=== PATIENT | male | born 1975 | race Caucasian/White ===

== ENCOUNTER 2020-09-19 17:20 | Emergency (ER) | payer BC, SELFPAY ==
[2020-09-19] VITALS (7 sets, daily range): BP systolic 90–138; BP diastolic 52–88; PULSE 87–94; RESP 17–18; TEMP 36.7–36.8; O2SAT 92–98; BMI 25.7
--- NOTE | 2020-09-19 17:32 | XR_ITS ---
PROCEDURE: XR CHEST PORTABLE CLINICAL HISTORY: r/o pna Chest pain the COMPARISON: CR CXR CHEST(2 VIEWS-NOT PORTABLE) from 06/05/2017 CR CXR2 CHEST-AP VIEW ONLY from 06/21/[address] [address] CHEST W/O CONTRAST from 06/21/2017 CR CXR1 CHEST-PORTABLE from 07/16/2017 FINDINGS: The cardiomediastinal silhouette and pulmonary vascularity are within normal limits. Patchy density is present in the right lower lobe consistent with infiltrate. The remaining lungs are clear. No acute bony abnormalities. IMPRESSION: Right lower lobe infiltrate Dictated by: Ishan Charlton MD 09/20/2020 05:02 Ishan Charlton MD in [place] 09/20/2020 05:02
[2020-09-19 17:50] LABS: Basophils # 0.1 K/mm3 (0-0.2); Basophils % 0.7 % (0.1-2.0); Eosinophils # 0.4 K/mm3 (0.0-0.4); Eosinophils % 2.5 % (0.1-12.0); Hematocrit 38.5 % (42.0-52.0); Hemoglobin 11.8 g/dL (14.1-18.0); Lymphocytes # 2.2 K/mm3 (0.7-4.5); Lymphocytes % 14.3 % (10-50); Mean Corpuscular HGB Conc 30.5 g/dL (31.8-35.4); Mean Corpuscular Hemoglobin 28.1 pg (27.0-31.2); Mean Corpuscular Volume 92.2 fl (80-94); Mean Platelet Volume 7.2 fl (7.4-10.4); Monocytes # 1.1 K/mm3 (0.1-1.0); Monocytes % 6.9 % (1.7-9.3); Neutrophils # 11.7 K/mm3 (1.8-7.8); Neutrophils % 75.6 % (37.0-80.0); Platelet Count 456 K/mm3 (142-424); Red Blood Count 4.18 M/mm3 (4.60-6.20); White Blood Count 15.4 K/mm3 (4.8-10.8)
[2020-09-19 17:53] LABS: MANUAL DIFFERENTIAL MANUAL DIFFERENTIAL (MANUAL DIFF)
[2020-09-19 17:56] LABS: Alanine Aminotransferase 20 U/L (12-78); Albumin Level 4.3 g/dl (3.5-5.0); Albumin/Globulin Ratio 1.2 (1.1-1.8); Alkaline Phosphatase 103 U/L (38-126); Aspartate Amino Transferase 22 U/L (17-59); Bilirubin,Total 0.3 mg/dl (0.2-1.3); Blood Urea Nitrogen 8 mg/dl (9-20); Calcium 9.8 mg/dl (8.4-10.2); Carbon Dioxide 30 mmol/L (22.0-30.0); Chloride 94 mmol/L (98-107); Creatinine Clearance Estimated 194 mL/min (50-200); Estimated Glomerular Filt Rate 147 ml/min (>60); GFR (African American) 178 ML/MIN (>60); Globulin 3.6 g/dL (1.3-3.2); Glucose 100 mg/dl (74-100); Sodium 137 mmol/L (136-145); Total Protein,Serum 7.9 g/dl (6.3-8.2)
[2020-09-19 18:02] LABS: Eosinophils % 4 % (0-3); Lymphocytes % 16 % (10-50); Monocytes % 9 % (2-9); Neutrophils % 71 % (42-76); Platelet Estimate Slight Increase; RBC Morphology Normal; Total Cells Counted 100
[2020-09-19 18:09] LABS: Troponin I < 0.01 ng/ml (0.00-0.034)
--- NOTE | 2020-09-19 19:02 | HMH.EDGENADL ---
ED Disposition Clinical Impression: Pneumonia Qualifiers: Pneumonia type: due to unspecified organism Laterality: right Lung location: lower lobe of lung Qualified Code(s): J18.9 - Pneumonia, unspecified organism Tibial plateau fracture, left Qualifiers: Encounter type: initial encounter Fracture type: closed Qualified Code(s): S82.142A - Displaced bicondylar fracture of left tibia, initial encounter for closed fracture Disposition: Home, Self-Care Condition on Discharge: Good Additional Instructions: Additional instructions for PNEUMONIA: Take antibiotics as prescribed. See your physician as soon as possible for further evaluation. Return immediately if you have an uncontrollable fever greater than 102 degrees, difficulty breathing or shortness of breath, persistent vomiting, or severe chest pain. Prescriptions: Clindamycin Palmitate HCl [Clindamycin Pediatric] 300 mg G-TUBE QID #800 ml Transmission Status: Received by [facility] levoFLOXacin [Levaquin 750mg tablet] 750 mg G-TUBE DAILY #6 tab Transmission Status: Received by [facility] Referrals: PCP,No [Primary Care Provider] - Juan Eric MD [Staff Physician] - (Call tomorrow to make appointment for Sunday or Sunday) - Critical Care Critical Care Time: No Attestation: On 09/19/20, the high probability of a clinically significant, sudden or life threatening deterioration of the following system(s) required my full and direct attention, intervention and personal management. The time I documented below is in addition to time spent performing reported procedures but includes the following listed in this critical care notation. Medical Decision Making - Medical Records Medical records reviewed: Yes: I reviewed the patient's medical records. MR Comment: portal reviewed. He did not have a left knee x-ray. - Manjit Inquiry Pt receiving controlled substance: No Vital Signs: 09/19/20 17:20 09/19/20 17:50 09/19/20 18:20 Temperature 98.3 F Temperature Source Oral Pulse Rate [Right Radial] 92 H 92 H 89 Respiratory Rate 17 Blood Pressure [Right Arm] 138/88 115/76 130/86 Blood Pressure Mean [Right Arm] 104 89 100 Blood Pressure Source [Right Arm] Automatic Cuff Automatic Cuff Blood Pressure Position [Right Arm] Sitting Sitting 02 Sat by Pulse Oximetry 94 L 94 L 92 L Oxygen Delivery Method Room Air Room Air 09/19/20 19:00 09/19/20 20:00 Temperature Temperature Source Pulse Rate [Right Radial] 87 93 H Respiratory Rate Blood Pressure [Right Arm] 128/84 90/52 L Blood Pressure Mean [Right Arm] 98 64 Blood Pressure Source [Right Arm] Automatic Cuff Automatic Cuff Blood Pressure Position [Right Arm] Sitting Sitting 02 Sat by Pulse Oximetry 95 97 Oxygen Delivery Method Room Air Room Air - Lab Data Lab Results 09/19/20 17:34: WBC 15.4 H, RBC 4.18 L, Hgb 11.8 L, Hct 38.5 L, MCV 92.2, MCH 28.1, MCHC 30.5 L, RDW 14.0, Plt Count 456 H, MPV 7.2 L, Neut % (Auto) 75.6, Lymph % (Auto) 14.3, Knox % (Auto) 6.9, Eos % (Auto) 2.5, Baso % (Auto) 0.7, Neut # (Auto) 11.7 H, Lymph # (Auto) 2.2, [place] # (Auto) 1.1 H, Eos # (Auto) 0.4, Baso # (Auto) 0.1, Total Counted 100, Neutrophils % (Manual) 71, Lymphocytes % (Manual) 16, Monocytes % (Manual) 9, Eosinophils % (Manual) 4 H, Platelet Estimate Slight increase, RBC Morphology Normal 09/19/20 17:34: Sodium 137, Potassium 4.0, Chloride 94 L, Carbon Dioxide 30, Anion Gap 17.0 H, BUN 8 L, Creatinine 0.60 L, Estimated Creat Clear 194, Estimated GFR 147, Est GFR ( Amer) 178, Glucose 100, Calcium 9.8, Total Bilirubin 0.3, AST 22, ALT 20, Alkaline Phosphatase 103, Troponin I < 0.01, Total Protein 7.9, Albumin 4.3, Globulin 3.6 H, Albumin/Globulin Ratio 1.2 Result diagrams: 09/19/20 17:34 09/19/20 17:34 Orders (Tests/Meds): ED MEDICATIONS Generic Name Dose Route Start Last Admin Trade Name Freq PRN Reason Stop Dose Admin Levofloxacin/Dextrose 750 mg in 150 mls @ 100 mls/hr
--- NOTE | 2020-09-19 19:37 | PC.NURSE ---
received report from nurse
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
--- NOTE | 2020-09-19 20:12 | PC.NURSE ---
Radiology at bedside
--- NOTE | 2020-09-19 20:15 | PC.NURSE ---
Radiology leaving bedside
--- NOTE | 2020-09-19 20:20 | PC.NURSE ---
MD Jenkins on phone with contract clerk ortho in reference to patients knee injury
== END 2020-09-19 21:01 | disposition home or self-care (01) ==
PROVIDERS: Emergency Provider Emergency Medicine
DX: J18.9 Pneumonia, unspecified organism (principal); S82.142A Displaced bicondylar fracture of left tibia, initial encounter for closed fracture; V20.4XXA Motorcycle driver injured in collision with pedestrian or animal in traffic accident, initial encounter; Y92.488 Other paved roadways as the place of occurrence of the external cause; F17.210 Nicotine dependence, cigarettes, uncomplicated
CPT/HCPCS: 29505; 71045; 73562; 80053; 84484; 85007; 85025; 93005; 96365; 96367; 99284; J1956

== ENCOUNTER → 2020-09-22 10:28 | Outpatient (CLI) | payer BC, SELFPAY ==
--- NOTE | 2020-09-22 10:28 | CT_ITS ---
PROCEDURE: CT KNEE LT WO CON CLINICAL HISTORY: left tibial plateau fracture Injury with pain, evaluate tibial plateau fracture COMPARISON: CR XR KNEE LT 3V from 09/19/2020 TECHNIQUE: Axial images obtained with sagittal and coronal reformats. All CT scans at the facility use one or more dose reduction, viz: automated exposure control, ma/kV adjustment per patient size (including targeted exams where dose is matched to indication, i.e. head), or iterative reconstruction technique. FINDINGS: There is a severely comminuted fracture involving the lateral tibial plateau. There is some sclerosis of the fracture fragments and some of the fracture fragments are well corticated indicating the Daisy is chronic or subacute. The lateral tibial plateau is slightly depressed by approximately 4 mm with the main lateral fracture fragment slightly laterally by 7 mm. There is some callus formation along the inferior aspect of the lateral fracture fragment. The fracture extends medially into the lateral tibial spine area. The there is a small knee joint effusion. IMPRESSION: Comminuted displaced and mildly depressed chronic lateral tibial plateau fracture with some callus formation inferiorly. Most of the bony fragments however are ununited. Dictated by: Ishan Charlton MD 09/22/2020 11:34 Ishan Charlton MD in [place] 09/22/2020 11:34
== END ==
PROVIDERS: PCP Nurse Practitioner Family; Visit Provider Orthopaedic Surgery
DX: S82.142A Displaced bicondylar fracture of left tibia, initial encounter for closed fracture (principal)
CPT/HCPCS: 73700

== ENCOUNTER 2020-09-23 17:24 | Emergency (ER) | payer BC, SELFPAY ==
[2020-09-23 17:25] VITALS: BP 136/87; PULSE 79; RESP 16; TEMP 36.9; O2SAT 98; BMI 24.2
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
--- NOTE | 2020-09-23 18:06 | PC.NURSE ---
dr barrera paged
--- NOTE | 2020-09-23 18:07 | PC.NURSE ---
Dr. Villanueva paged
--- NOTE | 2020-09-23 18:08 | PC.NURSE ---
Dr. Villanueva in surgery at this time and will call back as soon as hes finished.
--- NOTE | 2020-09-23 18:17 | PC.NURSE ---
Went to place BP cuff and pulse ox back on patient and patient states, They done taken them 50 fing times, they ain't getting no more.
--- NOTE | 2020-09-23 18:27 | PC.NURSE ---
Rad at bedside
--- NOTE | 2020-09-23 18:28 | PC.NURSE ---
Dr Villanueva at bedside
--- NOTE | 2020-09-23 18:37 | XR_ITS ---
PROCEDURE: XR ABDOMEN MIN 2V CLINICAL INDICATION: verify g tube placement COMPARISON: No exams were available for comparison FINDINGS: There are 2 images submitted with contrast injected through G-tube. The tip appears to be within the stomach on the 1st image. The 2nd image the tip is obscured by the overlying contrast bottle and someone's hand. The artifact could obscure extravasation. No extravasation is evident to the right of the spine. IMPRESSION: G-tube tip appears to be in the stomach. Dictated by: Ishan Charlton MD 09/24/2020 10:36 Ishan Charlton MD in [place] 09/24/2020 10:36
[2020-09-23 19:33] VITALS: BP 128/74; PULSE 72; RESP 16; TEMP 36.7; O2SAT 98
== END 2020-09-23 19:35 | disposition left against medical advice (07) ==
PROVIDERS: Emergency Provider Emergency Medicine; PCP Nurse Practitioner Family
DX: K94.23 Gastrostomy malfunction (principal)
CPT/HCPCS: 74019; 99282

== ENCOUNTER 2020-09-25 13:29 | Emergency (ER) | payer BC, SELFPAY ==
[2020-09-25 13:29] VITALS: BP 93/59; PULSE 84; RESP 20; TEMP 37.1; O2SAT 95; BMI 20.2
[2020-09-25 13:40] LABS: POC Glucose,Bedside 158 (70-110)
[2020-09-25 13:41] VITALS: BMI 20.3
--- NOTE | 2020-09-25 13:50 | PC.NURSE ---
Lab aware of blood draw. Was attempted by myself and unsuccessful for blood
--- NOTE | 2020-09-25 14:13 | HMH.EDGENADL ---
ED Disposition Clinical Impression: Substance abuse, Vasovagal syncope, Pneumonia Disposition: Home, Self-Care Condition on Discharge: Fair Instructions: DI for Syncope in Adults (Fainting) Additional Instructions: Return with any new or worsening symptoms. Cut back on smoking marijuana or other substances. Take medication as prescribed. Follow-up with PCP on Sunday Prescriptions: Amoxicillin [Amoxicillin 875MG Tab] 875 mg PO Q12H #20 tab Transmission Status: Pending to [facility] Azithromycin [Azithromycin 500mg Tab] 500 mg PO DAILY #3 tab Transmission Status: Pending to [facility] Referrals: Sumi Stone APRN [Primary Care Provider] - - Critical Care Critical Care Time: No Attestation: On 09/25/20, the high probability of a clinically significant, sudden or life threatening deterioration of the following system(s) required my full and direct attention, intervention and personal management. The time I documented below is in addition to time spent performing reported procedures but includes the following listed in this critical care notation. Medical Decision Making - Medical Records Medical records reviewed: Yes: I reviewed the patient's medical records. - Manjit Inquiry Pt receiving controlled substance: No Vital Signs: 09/25/20 13:29 09/25/20 14:22 09/25/20 15:47 Temperature 98.8 F Temperature Source Oral Pulse Rate [Left Radial] 84 80 75 Respiratory Rate 20 Blood Pressure [Right Arm] 93/59 L 104/66 L 107/63 L Blood Pressure Mean [Right Arm] 70 78 77 Blood Pressure Source [Right Arm] Automatic Cuff Automatic Cuff Automatic Cuff Blood Pressure Position [Right Arm] Sitting Sitting Sitting 02 Sat by Pulse Oximetry 95 95 92 L Oxygen Delivery Method Room Air Room Air Room Air 09/25/20 16:18 09/25/20 17:04 Temperature Temperature Source Pulse Rate [Left Radial] 72 74 Respiratory Rate Blood Pressure [Right Arm] 102/63 L 101/67 L Blood Pressure Mean [Right Arm] 76 78 Blood Pressure Source [Right Arm] Automatic Cuff Automatic Cuff Blood Pressure Position [Right Arm] Sitting Sitting 02 Sat by Pulse Oximetry 92 L 94 L Oxygen Delivery Method Room Air Room Air - Lab Data Lab Results 09/25/20 13:33: POC Glucose 158 H 09/25/20 14:14: WBC 18.2 H, RBC 3.77 L, Hgb 11.0 L, Hct 32.8 L, MCV 87.0, MCH 29.2, MCHC 33.6, RDW 14.6, Plt Count 568 H, MPV 7.8, Neut % (Auto) 76.2, Lymph % (Auto) 10.2, [place] % (Auto) 10.5 H, Eos % (Auto) 2.2, Baso % (Auto) 0.8, Neut # (Auto) 13.9 H, Lymph # (Auto) 1.9, [place] # (Auto) 1.9 H, Eos # (Auto) 0.4, Baso # (Auto) 0.1, Total Counted 100, Neutrophils % (Manual) 83 H, Lymphocytes % (Manual) 3 L, Monocytes % (Manual) 14 H, Platelet Estimate Marked increase, RBC Morphology Normal 09/25/20 14:14: Sodium 135 L, Potassium 4.7, Chloride 99, Carbon Dioxide 30, Anion Gap 10.7, BUN 13, Creatinine 0.70, Estimated Creat Clear 131, Estimated GFR 123, Est GFR ( Amer) 149, Glucose 135 H, Calcium 9.3, Total Bilirubin 0.2, AST 21, ALT 23, Alkaline Phosphatase 103, Total Protein 7.1, Albumin 3.8, Globulin 3.3 H, Albumin/Globulin Ratio 1.2 09/25/20 14:14: Plasma/Serum Alcohol < 10 09/25/20 15:06: VBG pH 7.37, VBG pCO2 45.8, VBG pO2 173.0 H, VBG HCO3 25.7, VBG Total CO2 27.1 H, VBG O2 Saturation 99.1 H, VBG Base Excess 0.4 09/25/20 15:23: Lactate 1.5 Result diagrams: 09/25/20 14:14 09/25/20 14:14 Orders (Tests/Meds): ED MEDICATIONS Discontinued Medications Generic Name Dose Route Start Last Admin Trade Name Freq PRN Reason Stop Dose Admin Sodium Chloride 1,000 mls @ 999 mls/hr 09/25/20 13:45 09/25/20 14:02 Sod Chlor 0.9% 1000ml Bag IV 09/25/20 14:45 999 mls/hr .Q1H1M TELMA Administration ORDERS Category Date Time Status UDS [Drug Screen,Urine] Stat Lab 09/25/20 15:06 Ordered Urinalysis and Microscopic Stat Lab 09/25/20 15:06 Ordered EKG Request [ECG Request by Dr/Nse] Stat Y 09/25/20 13:50 Ordered Medical Decision Narrative:
--- NOTE | 2020-09-25 14:14 | ECG_ITS ---
APPROVED REPORT Exam: Resting ECG HR:83 bpm ECG Measurements Heart Rate 83 AXES PA 146 P 39 QRSd 86 QRS 5 QT 366 T 37 QTc 430 Conclusion Normal sinus rhythm Minimal voltage criteria for LVH, may be normal variant Borderline ECG Electronically signed by : Didier Ball, 09/26/2020 18:32:20
[2020-09-25 14:22] VITALS: BP 104/66; PULSE 80; O2SAT 95
[2020-09-25 14:23] LABS: Basophils # 0.1 K/mm3 (0-0.2); Basophils % 0.8 % (0.1-2.0); Eosinophils # 0.4 K/mm3 (0.0-0.4); Eosinophils % 2.2 % (0.1-12.0); Hematocrit 32.8 % (42.0-52.0); Lymphocytes # 1.9 K/mm3 (0.7-4.5); Lymphocytes % 10.2 % (10-50); Mean Corpuscular HGB Conc 33.6 g/dL (31.8-35.4); Mean Corpuscular Hemoglobin 29.2 pg (27.0-31.2); Mean Platelet Volume 7.8 fl (7.4-10.4); Monocytes # 1.9 K/mm3 (0.1-1.0); Monocytes % 10.5 % (1.7-9.3); Neutrophils # 13.9 K/mm3 (1.8-7.8); Neutrophils % 76.2 % (37.0-80.0); Platelet Count 568 K/mm3 (142-424); Red Blood Count 3.77 M/mm3 (4.60-6.20); Red Cell Distribution Width 14.6 % (11.5-17.5); White Blood Count 18.2 K/mm3 (4.8-10.8)
[2020-09-25 14:29] LABS: Chloride 99 mmol/L (98-107); MANUAL DIFFERENTIAL MANUAL DIFFERENTIAL (MANUAL DIFF)
[2020-09-25 14:30] LABS: Potassium 4.7 mmoL/L (3.5-5.1); Sodium 135 mmol/L (136-145)
[2020-09-25 14:32] LABS: Alanine Aminotransferase 23 U/L (12-78); Aspartate Amino Transferase 21 U/L (17-59); Blood Urea Nitrogen 13 mg/dl (9-20); Creatinine Clearance Estimated 131 mL/min (50-200); Estimated Glomerular Filt Rate 123 ml/min (>60); GFR (African American) 149 ML/MIN (>60)
[2020-09-25 14:33] LABS: Albumin Level 3.8 g/dl (3.5-5.0); Albumin/Globulin Ratio 1.2 (1.1-1.8); Alkaline Phosphatase 103 U/L (38-126); Anion Gap 10.7 mEq/L (5-15); Bilirubin,Total 0.2 mg/dl (0.2-1.3); Calcium 9.3 mg/dl (8.4-10.2); Carbon Dioxide 30 mmol/L (22.0-30.0); Globulin 3.3 g/dL (1.3-3.2); Glucose 135 mg/dl (74-100); Total Protein,Serum 7.1 g/dl (6.3-8.2)
[2020-09-25 14:45] LABS: Lymphocytes % 3 % (10-50); Monocytes % 14 % (2-9); Neutrophils % 83 % (42-76); Platelet Estimate Marked Increase; RBC Morphology Normal; Total Cells Counted 100
--- NOTE | 2020-09-25 15:06 | XR_ITS ---
PROCEDURE: XR CHEST PORTABLE CLINICAL HISTORY: pain COMPARISON: CR CXR2 CHEST-AP VIEW ONLY from 06/21/[address] [facility] [address] CHEST W/O CONTRAST from 06/21/2017 CR CXR1 CHEST-PORTABLE from 07/16/2017 CR XR CHEST PORTABLE from 09/19/2020 FINDINGS: The cardiomediastinal silhouette and pulmonary vascularity are within normal limits considering a somewhat poor inspiration when compared to the previous study. The patchy ill-defined pneumonic infiltrate is again seen right infrahilar region and right lower lobe. There has been no significant interval clearing from the previous study. The right upper lung field and left lung field remains clear. There is no pleural fluid. IMPRESSION: Persistent ill-defined pneumonic infiltrate right lower lobe Dictated by: Dr. Porfirio Bain MD 09/25/2020 15:30 Dr. Porfirio Bain MD in [place] 09/25/2020 15:30
[2020-09-25 15:21] LABS: Ethyl Alcohol < 10 mg/dl (0-10)
[2020-09-25 15:36] LABS: Lactic Acid 1.5 mmol/L (0.7-2.1)
[2020-09-25 15:47] VITALS: BP 107/63; PULSE 75; O2SAT 92
[2020-09-25 16:01] LABS: VBG Base Excess 0.4 mmol/L (-2.4-2.3); VBG HCO3 25.7 mmol/L (23-30); VBG Oxygen Saturation 99.1 % (50-70); VBG PCO2 45.8 mmol/L (35-51); VBG PH 7.37 mmol/L (7.31-7.41); VBG Total CO2 27.1 mmol/L (23-27)
--- NOTE | 2020-09-25 16:16 | PC.NURSE ---
Pt's mother called and is upset that she is unable to get the answers she looking for as far as pt's test results. Explained to her that I cannot give out information over the phone but I would be glad to let her speak with the pt. She declined at this time and promptly got off the phone.
[2020-09-25 16:18] VITALS: BP 102/63; PULSE 72; O2SAT 92
[2020-09-25 17:04] VITALS: BP 101/67; PULSE 74; O2SAT 94
[2020-09-25 18:41] VITALS: BP 115/86; PULSE 78; RESP 20; TEMP 37.1; O2SAT 95
== END 2020-09-25 18:43 | disposition home or self-care (01) ==
PROVIDERS: Emergency Provider Emergency Medicine; PCP Nurse Practitioner Family
DX: R55 Syncope and collapse (principal); F19.10 Other psychoactive substance abuse, uncomplicated; J18.9 Pneumonia, unspecified organism; F17.210 Nicotine dependence, cigarettes, uncomplicated
CPT/HCPCS: 36415; 71045; 80053; 82803; 82962; 83605; 85007; 85025; 93005; 96365; 99283

== ENCOUNTER → 2020-10-05 12:50 | Outpatient (CLI) | payer BC, SELFPAY ==
--- NOTE | 2020-10-05 12:55 | FL_ITS ---
PROCEDURE: FL BARIUM SWALLOW MODIFIED CLINICAL INDICATION: DUSPHAGIA Dysphagia COMPARISON: No exams were available for comparison TECHNIQUE: Patient administered varying consistencies of barium contrast, while viewed in lateral position under real-time fluoroscopy with cine recording. FLUOROSCOPY TIME:2 minutes and 32 seconds The study was performed in conjunction with speech pathologist. Please see that report & recommendations. FINDINGS: Patient was given varying consistencies of barium. There was silent aspiration with thin liquids and premature spillage into the vallecula and piriform sinuses. There is stasis within the piriform sinuses and vallecula. IMPRESSION: Abnormal modified barium swallow with solid aspiration with thin liquids and premature spillage into the valleculae and piriform sinuses with poor clearance and moderate degree of stasis. Please see speech pathologist report and recommendations. Dictated by: Ishan Charlton MD 10/19/2020 10:10 Ishan Charlton MD in [place] 10/19/2020 10:10
--- NOTE | 2020-10-05 14:27 | HMH.SLMBS2 ---
Speech & Language Evaluation Speech/Language Mod Barium Swallow Start: 10/05/20 14:08 Freq: once Status: Complete Protocol: Document 10/05/20 14:08 PARI (Rec: 10/05/20 14:27 PARI [id number]) General Information General Current Food Consistancy NPO Dentition Poor Dentition Oxygen Status Room Air Patient Orientation Person,Place Ability to Follow Directions Good Communication Ability Moderate Impairment Voice Voice Quality Breathy Voice Pitch Limited Variation Voice Loudness Moderately Soft/Quiet MBS Recommendations Diet Dietary Recommendations NPO Treatment/Strategies Treatment Recommendation Resistive Sucking Exer.,Base of Tongue Exercises,Thermal Stimulation Referrals/Other Recommended Referrals GI Consult,Alternate Feeding Method Other Recommendations Continue with Alternate feeding method Mod Barium Swallow Impressions Summary and Impressions Oral Phase Impression No Impairment (WFL) Oral Phase Summary Poor dentition could result in difficulty with food consistencies not explored in the assessment ie. mechanical soft, regular, and mixed. Pharyngeal Phase Impression Severe Impairment Pharyngeal Phase Summary Mr. Piper did exhibit the following signs of dysphagia during assessment: premature spillage over the back of the tongue to the valleculae, penetration with all consistencies, silent aspiration of thin liquids from residue after the swallow , residue in pyriform sinuses with all consistencies after the swallow. Mr. Piper exhibited a line of mucus that was highlighted on study attatched to valleculae to the posterior pharyngeal wall above the esophageal opening. He did exhibit reguargitation in esophagus with all consistencies. The honey thick liquid washes created more residue in pyriform sinuses. Thin liquid washes did not
== END ==
PROVIDERS: PCP Nurse Practitioner Family; Visit Provider Student in an Organized Health Care Education/Training Program
DX: S06.9X0A Unspecified intracranial injury without loss of consciousness, initial encounter (principal); R13.12 Dysphagia, oropharyngeal phase
CPT/HCPCS: 70371; 92611

== ENCOUNTER 2020-10-11 11:10 | Emergency (ER) | payer BC, SELFPAY ==
[2020-10-11 11:14] VITALS: BP 101/63; PULSE 86; RESP 16; TEMP 36.7; O2SAT 98; BMI 25.0
--- NOTE | 2020-10-11 11:24 | XR_ITS ---
PROCEDURE: XR CHEST 2V CLINICAL HISTORY: pneumonia COMPARISON: CT [facility] CT CHEST W/O CONTRAST from 06/21/2017 CR CXR1 CHEST-PORTABLE from 07/16/2017 CR XR CHEST PORTABLE from 09/19/2020 CR XR CHEST PORTABLE from 09/25/2020 FINDINGS: The cardiomediastinal silhouette and pulmonary vascularity are within normal limits. There has been slight interval clearing of the ill-defined pneumonic infiltrate right infrahilar region and right lower lobe. The right upper lung field and left lung delaney are clear. There is no pleural fluid. There is a healing fracture right 8th rib axillary line with moderate callus formation at the fracture site. IMPRESSION: Minimal right lower lobe infiltrate remaining, healing somewhat recent fracture right 8th rib. Dictated by: Dr. Porfirio Bain MD 10/11/2020 12:13 Dr. Porfirio Bain MD in [place] 10/11/2020 12:13
[2020-10-11 11:29] VITALS: BP 101/63; PULSE 86; RESP 16; TEMP 37.1; O2SAT 98
--- NOTE | 2020-10-11 11:48 | HMH.EDUTC ---
[facility] [place]ression: Right lower lobe pneumonia Qualifiers: Pneumonia type: due to unspecified organism Qualified Code(s): J18.9 - Pneumonia, unspecified organism Disposition: Home, Self-Care Condition on Discharge: Good Instructions: Pneumonia-Adult Additional Instructions: Drink plenty of fluids. Use the incentive spirometer as directed. (X10 every 2 hours while awake). Take tylenol for pain or fever. Return if you begin to have difficulty breathing. Follow up with your regular doctor. GO TO THE ER FOR ANY WORSENING SYMPTOMS Follow up with your primary care physician in a week to 10 days to have the chest x-ray repeated to make sure the pneumonia has continued to clear up. Prescriptions: Amoxicillin/Potassium Clav [Augmentin 875-125 Tablet] 1 tab PO Q12H 10 Days #20 tab Transmission Status: Received by [facility] predniSONE [Prednisone 20mg Tab] 20 mg PO BID 4 Days #8 tab Transmission Status: Received by [facility] Referrals: Sumi Stone APRN [Primary Care Provider] - Time of Disposition: 12:23 Medical Decision Making - Medical Records Medical records reviewed: No: I reviewed the patient's medical records. - Manjit Inquiry Pt receiving controlled substance: No Vital Signs: 10/11/20 11:14 10/11/20 11:29 Temperature 98.0 F 98.7 F Temperature Source Oral Oral Pulse Rate 86 Pulse Rate [Left] 86 Respiratory Rate 16 16 Blood Pressure 101/63 L Blood Pressure [Right Arm] 101/63 L Blood Pressure Mean [Right Arm] 75 Blood Pressure Source [Right Arm] Automatic Cuff Blood Pressure Position [Right Arm] Sitting 02 Sat by Pulse Oximetry 98 Oxygen Delivery Method Room Air - Radiology Data #1 Image(s): Chest Image Reviewed: Yes I reviewed the patient's radiology image, Yes I have reviewed radiologist's interpretation Preliminary Findings: Abnormal PROCEDURE: XR CHEST 2V CLINICAL HISTORY: pneumonia COMPARISON: CT [facility] CT CHEST W/O CONTRAST from 06/21/2017 CR CXR1 CHEST-PORTABLE from 07/16/2017 CR XR CHEST PORTABLE from 09/19/2020 CR XR CHEST PORTABLE from 09/25/2020 FINDINGS: The cardiomediastinal silhouette and pulmonary vascularity are within normal limits. There has been slight interval clearing of the ill-defined pneumonic infiltrate right infrahilar region and right lower lobe. The right upper lung field and left lung delaney are clear. There is no pleural fluid. There is a healing fracture right 8th rib axillary line with moderate callus formation at the fracture site. IMPRESSION: Minimal right lower lobe infiltrate remaining, healing somewhat recent fracture right 8th rib. Dictated by: Dr. Porfirio Bain MD 10/11/2020 12:13 Dr. Porfirio Bain MD in [place] 10/11/2020 12:13 [facility] [place] - General Stated complaint: soa Time Seen by Provider: 10/11/20 11:48 Mode of Arrival: Ambulatory Source of Information: Patient Limitations: No Limitations Description of Symptoms (Recalled from Triage Doc. by RN): SOB-Pt states he had pneumonia and finished his medication and feels like he still has it. Pt called PCP and they told him to come in and get an xray. HEENT Symptoms (Recalled from RN notes): No Resp Symptoms (Recalled from RN notes): Yes Skin Symptoms (Recalled from RN notes): No MS Symptoms (Recalled from RN notes): No Functional Status (Recalled from RN notes): wnl - History of Present Illness Provider Complaint: He states that he has had pneumonia. He has finished the antibiotics. He states that he has still been feeling bad and feeling like has had pneumonia. - Related Data Previous Rx's Medication Instructions Recorded Clindamycin Palmitate HCl 300 mg G-TUBE QID #800 ml 09/19/20 [Clindamycin Pediatric] levoFLOXacin [Levaquin 750mg 750 mg G-TUBE DAILY #6 tab 09/19/20 tablet] Amoxicillin [Amoxicillin 875MG 875 mg PO Q12H #20 tab 09/25/20 Tab] Azithromycin [Azithromycin 50
== END 2020-10-11 12:28 | disposition home or self-care (01) ==
PROVIDERS: Emergency Provider Nurse Practitioner Family; PCP Nurse Practitioner Family
DX: J18.9 Pneumonia, unspecified organism (principal); F17.210 Nicotine dependence, cigarettes, uncomplicated
CPT/HCPCS: 71046; 99201

== ENCOUNTER 2020-10-18 18:14 | Emergency (ER) | payer BC, SELFPAY ==
[2020-10-18 18:16] VITALS: BP 125/71; PULSE 74; RESP 16; TEMP 36.9; O2SAT 99; BMI 23.6
[2020-10-18 18:27] VITALS: BMI 22.1
--- NOTE | 2020-10-18 18:27 | CT_ITS ---
PROCEDURE: CT HEAD/BRAIN WO CON CLINICAL INDICATION: severe headache Severe headache, prior surgery COMPARISON: CT HDWO CT HEAD W/O CONTRAST from 06/21/2017 TECHNIQUE: Axial images obtained. All CT scans at the facility use one or more dose reduction, viz: automated exposure control, ma/kV adjustment per patient size (including targeted exams where dose is matched to indication, i.e. head), or iterative reconstruction technique. FINDINGS: Status post right-sided temporal parietal craniotomy. 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 No midline shift or mass effect is evident. There are some vague low-density changes in the right temporal lobe posteriorly at the region of the craniotomy. Correlation with recent exam is needed. The temporal horn of the left lateral ventricle is slightly prominent. There has been a prior right mastoidectomy with fat replacement in the right mastoid region. Comminuted fracture involves the roof of the mastoid sinus extending into the right petrous bone laterally. No acute intracranial hemorrhage or midline shift is evident. The there is opacification of the remaining right mastoid air cells. There is mild mucosal thickening of the left mastoid air cells IMPRESSION: 1. Status post right temporoparietal craniectomy and right mastoid surgery with comminuted fracture involving the roof of the mastoid sinus extending into the right petrous bone. Please correlate with more recent exams which are not available at this institution. 2. Low-density changes in the right temporal lobe which could be due to developing encephalomalacia change. 3. No midline shift or acute intracranial hemorrhage apparent Dictated by: Ishan Charlton MD 10/19/2020 07:32 Ishan Charlton MD in [place] 10/19/2020 07:32
--- NOTE | 2020-10-18 18:42 | PC.NURSE ---
pt gone for ct
[2020-10-18 18:45] LABS: Basophils # 0.1 K/mm3 (0-0.2); Basophils % 0.5 % (0.1-2.0); Eosinophils # 0.4 K/mm3 (0.0-0.4); Eosinophils % 2.2 % (0.1-12.0); Hematocrit 37.5 % (42.0-52.0); Hemoglobin 12.2 g/dL (14.1-18.0); Lymphocytes # 2.9 K/mm3 (0.7-4.5); Lymphocytes % 14.8 % (10-50); MANUAL DIFFERENTIAL MANUAL DIFFERENTIAL (MANUAL DIFF); Mean Corpuscular HGB Conc 32.5 g/dL (31.8-35.4); Mean Corpuscular Hemoglobin 29.1 pg (27.0-31.2); Mean Corpuscular Volume 89.4 fl (80-94); Mean Platelet Volume 7.1 fl (7.4-10.4); Monocytes # 1.7 K/mm3 (0.1-1.0); Monocytes % 8.9 % (1.7-9.3); Neutrophils # 14.4 K/mm3 (1.8-7.8); Neutrophils % 73.6 % (37.0-80.0); Platelet Count 464 K/mm3 (142-424); Red Cell Distribution Width 16.1 % (11.5-17.5); White Blood Count 19.5 K/mm3 (4.8-10.8)
[2020-10-18 18:46] VITALS: BP 100/56; PULSE 68; RESP 20; O2SAT 98
--- NOTE | 2020-10-18 18:46 | PC.NURSE ---
Back from CT
[2020-10-18 18:50] LABS: Chloride 100 mmol/L (98-107)
[2020-10-18 18:51] LABS: Potassium 4.5 mmoL/L (3.5-5.1); Sodium 135 mmol/L (136-145)
[2020-10-18 18:53] LABS: Alanine Aminotransferase 13 U/L (12-78); Albumin Level 4.2 g/dl (3.5-5.0); Alkaline Phosphatase 85 U/L (38-126); Aspartate Amino Transferase 20 U/L (17-59); Bilirubin,Total 0.2 mg/dl (0.2-1.3); Blood Urea Nitrogen 14 mg/dl (9-20); Creatinine Clearance Estimated 131 mL/min (50-200); Estimated Glomerular Filt Rate 123 ml/min (>60); GFR (African American) 149 ML/MIN (>60); Total Protein,Serum 7.5 g/dl (6.3-8.2)
[2020-10-18 18:54] LABS: Albumin/Globulin Ratio 1.3 (1.1-1.8); Anion Gap 10.5 mEq/L (5-15); Calcium 9.7 mg/dl (8.4-10.2); Carbon Dioxide 29 mmol/L (22.0-30.0); Globulin 3.3 g/dL (1.3-3.2); Glucose 96 mg/dl (74-100)
[2020-10-18 18:55] LABS: Eosinophils % 6 % (0-3); Lymphocytes % 16 % (10-50); Monocytes % 9 % (2-9); Neutrophils % 67 % (42-76); Platelet Estimate Slight Increase; RBC Morphology Normal; Total Cells Counted 100
--- NOTE | 2020-10-18 19:00 | HMH.EDHA ---
ED Disposition Clinical Impression: Headache Qualifiers: Headache type: unspecified Headache chronicity pattern: acute headache Intractability: not intractable Qualified Code(s): R51.9 - Headache, unspecified Sinusitis Qualifiers: Sinusitis location: sphenoidal Chronicity: acute Recurrence: not specified as recurrent Qualified Code(s): J01.30 - Acute sphenoidal sinusitis, unspecified Disposition: Home, Self-Care Condition on Discharge: Good Instructions: DI for Headache Additional Instructions: keep appt in am Prescriptions: cephALEXin [Keflex 500mg Cap] 500 mg PO TID #30 cap Transmission Status: Pending to [facility] Referrals: Wagner Cowan MD [Primary Care Provider] - - Critical Care Critical Care Time: No Attestation: On 10/18/20, the high probability of a clinically significant, sudden or life threatening deterioration of the following system(s) required my full and direct attention, intervention and personal management. The time I documented below is in addition to time spent performing reported procedures but includes the following listed in this critical care notation. Medical Decision Making - Medical Records Medical records reviewed: Yes: I reviewed the patient's medical records. - Manjit Inquiry Pt receiving controlled substance: No Vital Signs: 10/18/20 18:16 10/18/20 18:46 Temperature 98.4 F Temperature Source Oral Pulse Rate [Right] 74 68 Respiratory Rate 16 20 Blood Pressure [Right Arm] 125/71 100/56 L Blood Pressure Mean [Right Arm] 89 70 Blood Pressure Source [Right Arm] Automatic Cuff Automatic Cuff Blood Pressure Position [Right Arm] Sitting Supine 02 Sat by Pulse Oximetry 99 98 Oxygen Delivery Method Room Air Room Air - Lab Data Lab results reviewed: Yes: I reviewed the patient's lab results. Lab Results 10/18/20 18:30: WBC 19.5 H, RBC 4.20 L, Hgb 12.2 L, Hct 37.5 L, MCV 89.4, MCH 29.1, MCHC 32.5, RDW 16.1, Plt Count 464 H, MPV 7.1 L, Neut % (Auto) 73.6, Lymph % (Auto) 14.8, Meagher % (Auto) 8.9, Eos % (Auto) 2.2, Baso % (Auto) 0.5, Neut # (Auto) 14.4 H, Lymph # (Auto) 2.9, Meagher # (Auto) 1.7 H, Eos # (Auto) 0.4, Baso # (Auto) 0.1, Total Counted 100, Neutrophils % (Manual) 67, Band Neutrophils % 2.0, Lymphocytes % (Manual) 16, Monocytes % (Manual) 9, Eosinophils % (Manual) 6 H, Platelet Estimate Slight increase, RBC Morphology Normal 10/18/20 18:30: Sodium 135 L, Potassium 4.5, Chloride 100, Carbon Dioxide 29, Anion Gap 10.5, BUN 14, Creatinine 0.70, Estimated Creat Clear 131, Estimated GFR 123, Est GFR ( Amer) 149, Glucose 96, Calcium 9.7, Total Bilirubin 0.2, AST 20, ALT 13, Alkaline Phosphatase 85, Total Protein 7.5, Albumin 4.2, Globulin 3.3 H, Albumin/Globulin Ratio 1.3 Result diagrams: 10/18/20 18:30 10/18/20 18:30 Orders (Tests/Meds): ED MEDICATIONS Generic Name Dose Route Start Last Admin Trade Name Freq PRN Reason Stop Dose Admin Sodium Chloride 1,000 mls @ 999 mls/hr 10/18/20 18:30 10/18/20 18:33 Sod Chlor 0.9% 1000ml Bag IV 10/18/20 19:30 999 mls/hr .Q1H1M TELMA Administration Discontinued Medications Generic Name Dose Route Start Last Admin Trade Name Freq PRN Reason Stop Dose Admin Acetaminophen/Codeine Phosphate 1 antoinette 10/18/20 19:13 10/18/20 19:13 Acetaminophen 300mg W/Codeine 30mg Take Home Pack (6) PO 10/18/20 19:14 1 antoinette ONCE ONE Administration Ceftriaxone Sodium 1 gm/ 50 mls @ 100 mls/hr 10/18/20 19:07 10/18/20 19:14 Sodium Chloride IV 10/18/20 19:36 100 mls/hr ONCE ONE Administration Protocol Ketorolac Tromethamine 30 mg 10/18/20 18:28 10/18/20 18:33 Ketorolac 30mg/Ml Vial IV 10/18/20 18:29 30 mg ONCE ONE Administration Methylprednisolone Sodium Succinate 125 mg 10/18/20 19:07 10/18/20 19:12 Methylprednisolone Sod Succ 125mg Vial IV 10/18/20 19:08 125 mg ONCE ONE Administration Morphine Sulfate 4 mg 10/18/20 19:07 10/18/20 19:13 Morphine 4mg/Ml Syringe IV
--- NOTE | 2020-10-18 19:10 | XR_ITS ---
PROCEDURE: XR CHEST 2V CLINICAL HISTORY: headache COMPARISON: CT [facility]WO CT CHEST W/O CONTRAST from 06/21/2017 CR XR CHEST PORTABLE from 09/19/2020 CR XR CHEST PORTABLE from 09/25/2020 CR XR CHEST 2V from 10/11/2020 FINDINGS: The cardiomediastinal silhouette and pulmonary vascularity are within normal limits. Change atelectatic or fibrotic changes noted in the lower lobes. Upper lobes are clear. There are healing fractures of the right 8th and 9th ribs. No acute bony abnormalities. IMPRESSION: No change in the bibasilar atelectasis or fibrotic change with healing right 8th and 9th rib fractures Dictated by: Ishan Charlton MD 10/19/2020 05:26 Ishan Charlton MD in [place] 10/19/2020 05:26
--- NOTE | 2020-10-18 19:32 | PC.NURSE ---
to xray via [place]
[2020-10-18 19:54] VITALS: BP 152/74; PULSE 73; RESP 16; TEMP 36.6; O2SAT 98
== END 2020-10-18 19:57 | disposition home or self-care (01) ==
PROVIDERS: Emergency Provider Emergency Medicine; PCP Family Medicine
DX: G44.89 Other headache syndrome (principal); J01.30 Acute sphenoidal sinusitis, unspecified; F17.210 Nicotine dependence, cigarettes, uncomplicated
CPT/HCPCS: 70450; 71046; 80053; 85007; 85025; 96365; 96375; 99283; J2405

== ENCOUNTER → 2021-01-25 16:49 | Outpatient (CLI) | payer BC, SELFPAY ==
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
== END ==
PROVIDERS: PCP Family Medicine; Visit Provider Family Medicine
DX: S49.91XA Unspecified injury of right shoulder and upper arm, initial encounter (principal)
CPT/HCPCS: 73030

== ENCOUNTER → 2021-02-04 16:57 | Outpatient (CLI) | payer BC, SELFPAY ==
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
== END ==
PROVIDERS: PCP Family Medicine; Visit Provider Family Medicine
DX: S49.91XA Unspecified injury of right shoulder and upper arm, initial encounter (principal); M21.921 Unspecified acquired deformity of right upper arm
CPT/HCPCS: 73221

== ENCOUNTER 2021-03-02 14:00 | Outpatient (RCR) | payer BC, SELFPAY ==
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
--- NOTE | 2021-02-02 14:38 | HMH.RHREAS ---
Rehab Reassessment Rehab OP Re-assessment Start: 02/02/21 14:00 Freq: Status: Active Protocol: Document 02/02/21 14:00 JENNY (Rec: 02/02/21 14:38 JENNY [id number]) Electronically Signed By Matt Price OT 02/02/21 14:00 Rehab Re-assessment Subjective Subjective I don't know what my x-ray said. Objective Objective Notes Pt continues to be seen weekly in order to address right shoulder deficits. Pt engages in AROM/AAROM/Strengthening exercises in order to improve overall functional use of R shoulder. Pt usually refused ice an e-stim. Assessment Progress Assessment Slower Than Expected Assessment Notes Pt demonstrates minimal improvement at right shoulder sincer beginning therapy. Pt reports his pain is now a 3/10 at worst and he feels he is 50% better. However, pt's AROM and strength remain signficiantly limited. Pt did have an x-ray that appears to be normal with no acute findings. Pt reports he wants to have an MRI in order to observe msucles and tendons of shoulder. Current AROM r shoulder and mmt Flex: 125 degrees; 3 Abd: 105 degrees; 3 ER: 65 degrees; 3 IR: 85 degrees; [address], 4, & 5 Goals Not Met See below Revised Goals STG 1 & 2 LT-5 Plan Plan Continue with OT plan of care at this time. Frequency of Therapy 1-2x's a week Duration of therapy 4 more weeks Time and Billing Re-Eval Time 10 Re-Eval Billing Units 1 PHYSICIAN CERTIFICATION: I certify the specified therapy services for Adrian Piper are required, authorized, and reviewed every 30 days.
--- NOTE | 2021-03-02 14:39 | HMH.RHREAS ---
Rehab Reassessment Rehab OP Re-assessment Start: 02/02/21 14:00 Freq: Status: Active Protocol: Document 03/02/21 14:07 [email or web address] (Rec: 03/02/21 14:39 [email or web address] [id number]) Electronically Signed By Matt Price OT 03/02/21 14:07 Rehab Re-assessment Subjective Subjective It's been hurting me really bad the past 3 days. Objective Objective Notes Pt continues to be seen weekly in order to address right shoulder deficits. Pt engages in AROM/AAROM/Strengthening exercises in order to improve overall functional use of R shoulder. Pt usually refused ice an e-stim. Assessment Progress Assessment Slower Than Expected Assessment Notes Pt continues to complain of pain despite 8 weeks of therapy. Pt did have a MRI completed that diagnosed him with a partial tear of supraspinatus and infraspinatus, and a SLAP tear . Pt is reluctant of having surgery. Therapist explained he is not showing improvement and may need to return to the doctor. Pt does not demonstrate improvement since last re-assessment. Pt complains of pain at 5/10 at worst (increased since last re -assessment). Current AROM r shoulder and mmt Flex: 125 degrees; 3 Abd: 105 degrees; 3 ER: 65 degrees; 3 IR: 85 degrees; [address], 4, & 5 Goals Not Met See below Revised Goals STG 1 & 2 LT-5 Plan Plan At this time, therapist has recommended patient be put on hold in order to go see an Ortho. Pt may need surgical intervention because he has not shown improvement after 8 weeks of therapy. Plus, pt is only alloted 20 visits a year per insurance and
== END 2021-03-02 14:05 | disposition home or self-care (01) ==
LOC: OT 14:00
PROVIDERS: PCP Family Medicine; Visit Provider Family Medicine
DX: M25.512 Pain in left shoulder (principal); Z74.09 Other reduced mobility
CPT/HCPCS: 97110; 97164; 97166

== ENCOUNTER 2021-03-02 15:00 | Outpatient (RCR) | payer BC, SELFPAY ==
--- NOTE | 2021-01-20 18:55 | HMH.SLAPHASI ---
Speech & Language Evaluation Speech/Language Aphasia Evaluation Start: 01/20/21 18:12 Freq: once Status: Complete Protocol: Document 01/20/21 18:12 CMAKeara (Rec: 01/20/21 18:51 CMAY [id number]) Aphasia Assessment/Goals/Plan Assessment Date of Evaluation: 01/20/21 Evaluation Type Initial Certification Assessment/Problems Traumatic Brain Injury Does Patient Qualify for Service Yes Qualify/Failure Comment Based on the results of today' s evaluation, Mr. Piper qualifies for speech therapy services to address his memory , word finding, and swallowing deficits secondary to his TBI . ST assessed language/memory/ cognitive skills today during evaluation and will assess swallowing when MBSS report is received from [facility] with recent recommendations. Plan Pt will be seen # times/week 2 for # weeks 12 Anticipate reaching STG in # weeks 8 Anticipate reaching LTG in # weeks 12 Pt/Guardian verbally ack understanding Yes of dx/prognosis/goals Pt/Guardian verbally ack understanding Yes of/consent to tx prog G -code Required No STG-Auditory Comprehension Sentence Level 80 Paragraph Level 80 3rd Element 80 STG-Reading Comprehension Reading Sentences & Ans Questions 80 Reading Paragraphs & Ans Questions 80 STG-Verbal Expressive Language Word Naming 80 Define Words 80 STG-Attending/Orientation/Memory Orientation 80 Delayed Recall 80 Memory Recall 80 STG-Comparative/Linguistic Skills Thought Organization 80 Categorization Ability 80 Define Similarities/Differences 80 STG-Divergent Thinking Deductive Reasoning 80 Open-Ended Problem Solving 80 Long-Term Goals Increase cognitive skills to communicate Yes w/family & friends Education Instructions provided Therapy plan and treatment targets were discussed with Mr Dolly Piper who expressed understanding. Pt/Caregiver Able to Recall Information Able to recall/restate Speech & Language HPI History Present Illness Description of Patient Problem Traumatic Brain Injury Pt/Caregiver Concerns Per intake paperwork: Vocal cords aren't closing all the way (sometimes chokes),
== END 2021-03-02 15:05 | disposition home or self-care (01) ==
LOC: ST 15:00
PROVIDERS: PCP Family Medicine; Visit Provider Family Medicine
DX: Z87.820 Personal history of traumatic brain injury (principal)
CPT/HCPCS: 92523; 97129; 97130

== ENCOUNTER 2021-03-15 12:18 | Observation (INO) | payer BC, SELFPAY ==
[2021-03-15] VITALS (11 sets, daily range): BP systolic 135–173; BP diastolic 82–102; PULSE 56–65; RESP 18–20; TEMP 36.5–36.9; O2SAT 94–98; BMI 32.3; BMI 30.4
--- NOTE | 2021-03-15 12:35 | XR_ITS ---
PROCEDURE: XR CHEST 2V CLINICAL HISTORY: sob COMPARISON: CT CHWO CT CHEST W/O CONTRAST from 06/21/2017 CR XR CHEST PORTABLE from 09/25/2020 CR XR CHEST 2V from 10/11/2020 CR XR CHEST 2V from 10/18/2020 FINDINGS: The cardiomediastinal silhouette and pulmonary vascularity are within normal limits. The lungs are clear without infiltrates, suspicious nodules, or pleural effusions. Minimal fibrotic changes are present in the right lung base. No acute bony findings. IMPRESSION: Minimal right basilar fibrotic change otherwise negative Dictated by: Ishan Charlton MD 03/15/2021 14:18 Ishan Charlton MD in [place] 03/15/2021 14:18
--- NOTE | 2021-03-15 12:43 | ECG_ITS ---
APPROVED REPORT Exam: Resting ECG HR:62 bpm ECG Measurements Heart Rate 62 AXES NJ 154 P 36 QRSd 84 QRS -4 QT 420 T 23 QTc 426 Conclusion Normal sinus rhythm Possible Left atrial enlargement Left ventricular hypertrophy Abnormal ECG Electronically signed by : Didier Ball, 03/15/2021 19:47:52
[2021-03-15 12:48] LABS: Basophils # 0.2 K/mm3 (0-0.2); Eosinophils # 0.3 K/mm3 (0.0-0.4); Eosinophils % 2.4 % (0.1-12.0); Hematocrit 41.4 % (42.0-52.0); Hemoglobin 14.3 g/dL (14.1-18.0); Lymphocytes # 3.8 K/mm3 (0.7-4.5); Lymphocytes % 27.2 % (10-50); Mean Corpuscular HGB Conc 34.4 g/dL (31.8-35.4); Mean Corpuscular Hemoglobin 30.7 pg (27.0-31.2); Mean Corpuscular Volume 89.3 fl (80-94); Mean Platelet Volume 7.5 fl (7.4-10.4); Monocytes # 1.2 K/mm3 (0.1-1.0); Monocytes % 8.7 % (1.7-9.3); Neutrophils # 8.6 K/mm3 (1.8-7.8); Neutrophils % 60.8 % (37.0-80.0); Platelet Count 357 K/mm3 (142-424); Red Blood Count 4.64 M/mm3 (4.60-6.20); Red Cell Distribution Width 13.8 % (11.5-17.5); White Blood Count 14.2 K/mm3 (4.8-10.8)
[2021-03-15 12:54] LABS: Blood Urea Nitrogen 17 mg/dl (9-20); Carbon Dioxide 27 mmol/L (22.0-30.0); Chloride 108 mmol/L (98-107); Creatinine Clearance Estimated 144 mL/min (50-200); Estimated Glomerular Filt Rate 81 ml/min (>60); GFR (African American) 98 ML/MIN (>60); Glucose 99 mg/dl (74-100); Sodium 139 mmol/L (136-145)
--- NOTE | 2021-03-15 12:55 | HMH.EDGENADL ---
ED Disposition Clinical Impression: Dyspnea Disposition: Admitted as Observation Condition on Discharge: Fair Referrals: Wagner Cowan MD [Primary Care Provider] - Time of Disposition: 16:28 - Critical Care Critical Care Time: No Attestation: On 03/15/21, the high probability of a clinically significant, sudden or life threatening deterioration of the following system(s) required my full and direct attention, intervention and personal management. The time I documented below is in addition to time spent performing reported procedures but includes the following listed in this critical care notation. Medical Decision Making - Manjit Inquiry Pt receiving controlled substance: No Vital Signs: 03/15/21 12:19 03/15/21 12:31 03/15/21 14:31 Temperature 98.5 F Temperature Source Oral Pulse Rate 63 64 Pulse Rate [Radial] 60 Respiratory Rate 18 18 18 Blood Pressure 135/102 H 151/99 H Blood Pressure [Right Arm] 135/100 H Blood Pressure Mean 120 120 Blood Pressure Mean [Right Arm] 111 Blood Pressure Position [Right Arm] Sitting 02 Sat by Pulse Oximetry 98 97 97 Oxygen Delivery Method Room Air 03/15/21 15:01 Temperature Temperature Source Pulse Rate 61 Pulse Rate [Radial] Respiratory Rate 20 Blood Pressure 151/100 H Blood Pressure [Right Arm] Blood Pressure Mean 119 Blood Pressure Mean [Right Arm] Blood Pressure Position [Right Arm] 02 Sat by Pulse Oximetry 96 Oxygen Delivery Method - Lab Data Lab Results 03/15/21 12:31: WBC 14.2 H, RBC 4.64, Hgb 14.3, Hct 41.4 L, MCV 89.3, MCH 30.7, MCHC 34.4, RDW 13.8, Plt Count 357, MPV 7.5, Neut % (Auto) 60.8, Lymph % (Auto) 27.2, [place] % (Auto) 8.7, Eos % (Auto) 2.4, Baso % (Auto) 1.0, Neut # (Auto) 8.6 H, Lymph # (Auto) 3.8, [place] # (Auto) 1.2 H, Eos # (Auto) 0.3, Baso # (Auto) 0.2 03/15/21 12:31: Sodium 139, Potassium 4.0, Chloride 108 H, Carbon Dioxide 27, Anion Gap 8.0, BUN 17, Creatinine 1.00, Estimated Creat Clear 144, Estimated GFR 81, Est GFR ( Amer) 98, Glucose 99, Calcium 9.0, Troponin I < 0.01 03/15/21 15:30: Urine Color Yellow, Urine Appearance Clear, Urine pH 6.5, Ur Specific [place] 1.015, Urine Protein Negative, Urine Glucose (UA) Negative, Urine Ketones Negative, Urine Blood Negative, Urine Nitrate Negative, Urine Bilirubin Negative, Urine Urobilinogen 0.2, Ur Leukocyte Esterase Negative, Urine RBC None, Urine WBC None, Ur Squamous Epith Cells None, Urine Bacteria None Result diagrams: 03/15/21 12:31 03/15/21 12:31 Orders (Tests/Meds): ED MEDICATIONS Generic Name Dose Route Start Last Admin Trade Name Freq PRN Reason Stop Dose Admin Lactated Ringer's 1,000 mls @ 999 mls/hr 03/15/21 16:30 Lactated Ringer's 1000 Ml Bag IV 03/15/21 17:30 .Q1H1M TELMA Discontinued Medications Generic Name Dose Route Start Last Admin Trade Name Freq PRN Reason Stop Dose Admin Lactated Ringer's 500 mls @ 999 mls/hr 03/15/21 13:00 Lactated Ringer's 1000 Ml Bag IV 03/15/21 13:30 .Q31M TELMA Lactated Ringer's 500 mls @ 999 mls/hr 03/15/21 13:00 Lactated Ringer's 1000 Ml Bag IV 03/15/21 13:30 .Q31M TELMA Lactated Ringer's 1,000 mls @ 999 mls/hr 03/15/21 13:00 03/15/21 12:51 Lactated Ringer's 1000 Ml Bag IV 03/15/21 14:00 999 mls/hr .Q1H1M TELMA Administration Iopamidol 70 ml 03/15/21 13:18 03/15/21 13:18 Iopamidol-370 (76%);100ml Bottle IV 03/15/21 13:19 70 ml ONCE ONE Administration Sodium Chloride 50 ml 03/15/21 13:18 03/15/21 13:18 0.9 % Sodium Chloride 50 Ml Vial IV 03/15/21 13:19 50 ml ONCE ONE Administration Sodium Chloride 10 ml 03/15/21 13:18 03/15/21 13:18 Sodium Chloride 0.9% 10ml Syr (Rad Only) IV 03/15/21 13:19 10 ml ONCE ONE Administration ORDERS Category Date Time Status Consult to Pulmonology [CONS] Routine Cons 03/15/21 16:26 Ordered Covid-19 Nasal PCR ([facility]) Routine Lab 03/15/21 16:14 Received Arterial Blood Gas Stat RT 03/15/21 16:18
--- NOTE | 2021-03-15 12:59 | PC.NURSE ---
pt refusing covid swab at this time
--- NOTE | 2021-03-15 13:00 | PC.NURSE ---
pt to xray
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
[2021-03-15 13:10] LABS: Troponin I < 0.01 ng/ml (0.00-0.034)
--- NOTE | 2021-03-15 15:35 | PC.NURSE ---
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
[2021-03-15 15:37] LABS: Microscopic, Urine URINE MICROSCOPIC (MICROSCOPIC)
[2021-03-15 15:41] LABS: Appearance,Urine CLEAR (Clear); Bilirubin,Urine Negative (Negative); Blood, Urine Negative (Negative); Color,Urine YELLOW (Yellow); Glucose,Urine (UA) Negative (Negative); Ketones,Urine Negative (Negative); Leukocyte Esterase,Urine Negative (Negative); Nitrate,Urine Negative (Negative); PH,Urine 6.5 (5.0-8.5); Protein,Urine Negative (Negative); Specific Gravity, Urine 1.015 (1.005-1.030); Urobilinogen,Urine 0.2 EU/dl (0.2)
--- NOTE | 2021-03-15 16:02 | PC.NURSE ---
SPOKE WITH DR BRAMBILA HE HAS AGREED TO ADMISSION
--- NOTE | 2021-03-15 16:20 | PC.NURSE ---
pt agreeable to covid swab for admission after speaking with ER MD and his mother. Covid swab sent to lab at this time
--- NOTE | 2021-03-15 16:26 | PC.NURSE ---
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
[2021-03-15 16:36] LABS: ABG HCO3 24.7 mmhg (22.0-26.0); ABG Oxygen Saturation 61 % (90-100); ABG PH 7.35 mmol/L (7.35-7.45); ABG TCO2 26.1 mmhg (23-27); Allen's Test Acceptable; Source Left Radial
[2021-03-15 16:38] LABS: ABG PO2 29.8 mmhg (80-100)
--- NOTE | 2021-03-15 18:10 | PC.NURSE ---
pt up to bathroom, meal tray ordered
--- NOTE | 2021-03-15 20:53 | PC.NURSE ---
patient up to floor via wheelchair.
[2021-03-16 04:00] VITALS: BP 140/89; PULSE 61; RESP 18; TEMP 36.6; O2SAT 97
--- NOTE | 2021-03-16 04:09 | PC.NURSE ---
pt admitted with dyspnea. pulmonology consult in AM. pt has been alert and present. no complaints. remains on room air and no distress noted. vss. call light in reach. will continue to monitor
[2021-03-16 05:00] VITALS: BMI 29.7
[2021-03-16 07:23] LABS: Basophils # 0.1 K/mm3 (0-0.2); Basophils % 0.7 % (0.1-2.0); Eosinophils # 0.4 K/mm3 (0.0-0.4); Eosinophils % 2.1 % (0.1-12.0); Hematocrit 41.8 % (42.0-52.0); Hemoglobin 14.5 g/dL (14.1-18.0); Lymphocytes # 3.4 K/mm3 (0.7-4.5); Lymphocytes % 20.6 % (10-50); Mean Corpuscular HGB Conc 34.7 g/dL (31.8-35.4); Mean Corpuscular Volume 89.5 fl (80-94); Mean Platelet Volume 7.6 fl (7.4-10.4); Monocytes # 1.7 K/mm3 (0.1-1.0); Monocytes % 10.2 % (1.7-9.3); Neutrophils # 10.8 K/mm3 (1.8-7.8); Neutrophils % 66.3 % (37.0-80.0); Platelet Count 345 K/mm3 (142-424); Red Blood Count 4.68 M/mm3 (4.60-6.20); Red Cell Distribution Width 13.8 % (11.5-17.5); White Blood Count 16.3 K/mm3 (4.8-10.8)
[2021-03-16 07:25] LABS: MANUAL DIFFERENTIAL MANUAL DIFFERENTIAL (MANUAL DIFF)
[2021-03-16 07:34] LABS: Anion Gap 8.6 mEq/L (5-15); Blood Urea Nitrogen 16 mg/dl (9-20); Calcium 8.9 mg/dl (8.4-10.2); Carbon Dioxide 28 mmol/L (22.0-30.0); Chloride 106 mmol/L (98-107); Creatinine Clearance Estimated 147 mL/min (50-200); Estimated Glomerular Filt Rate 92 ml/min (>60); GFR (African American) 111 ML/MIN (>60); Glucose 84 mg/dl (74-100); Potassium 4.6 mmoL/L (3.5-5.1); Sodium 138 mmol/L (136-145)
[2021-03-16 07:38] VITALS: BP 155/116; PULSE 66; TEMP 36.4; O2SAT 97
[2021-03-16 08:17] LABS: Eosinophils % 2 % (0-3); Lymphocytes % 22 % (10-50); Monocytes % 12 % (2-9); Neutrophils % 64 % (42-76); RBC Morphology Normal; Total Cells Counted 100
[2021-03-16 08:18] LABS: Platelet Estimate Normal
--- NOTE | 2021-03-16 09:08 | P.CONPHA_ITS ---
[facility] Pharmacy VTE Monitoring - Patient Demographics Admission date: 03/16/21 Report Date: 03/16/21 Time: 09:08 Allergies/Adverse Reactions: Patient Allergies No Known Allergies Allergy (Verified 03/09/21 13:18) Height: 1.83 m Weight: 99.507 kg Patient Problems: Current Active Problems Dyspnea (Acute) - VTE Risk Labs: VTE Related Lab Results Hgb 14.5 g/dL (14.1-18.0) 03/16/21 06:46 Hct 41.8 % (42.0-52.0) L 03/16/21 06:46 Plt Count 345 K/mm3 (142-424) 03/16/21 06:46 BUN 16 mg/dl (9-20) 03/16/21 06:46 Creatinine 0.90 mg/dl (0.66-1.25) 03/16/21 06:46 Estimated Creat Clear 147 mL/min (50-200) 03/16/21 06:46 Was VTE Risk Assessment Performed: No VTE Score: 1 VTE Risk Level: Very Low Risk Clinical Trial Participant: No - Prophylaxis VTE Prophylaxis Ordered?: Yes Types of VTE Prophylaxis: TEDS Knee High
--- NOTE | 2021-03-16 09:29 | HMH.PHAINT ---
home medication list completed using list from [facility] pharmacy and pt interview
[2021-03-16 11:34] LABS: ABG Base Excess 1.2 mmol/L (-2.4-2.3); ABG HCO3 25.6 mmhg (22.0-26.0); ABG Oxygen Saturation 96 % (90-100); ABG PCO2 40.1 mmhg (35.0-45.0); ABG PH 7.42 mmol/L (7.35-7.45); ABG PO2 70.8 mmhg (80-100); ABG TCO2 26.8 mmhg (23-27)
[2021-03-16 11:40] VITALS: BP 164/104; PULSE 59; RESP 18; TEMP 36.7; O2SAT 96
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
[2021-03-16 11:46] LABS: Oxygen RA %
[2021-03-16 12:56] VITALS: BP 178/82
[2021-03-16 13:55] LABS: C-Reactive Protein 0.7 mg/L (0-4)
[2021-03-16 13:59] LABS: Adenovirus,PCR Not Detected (NotDetected); Bordetella Pertussis Not Detected (NotDetected); Chlamydophila Pneumoniae, PCR Not Detected (NotDetected); Coronavirus 229E Not Detected (NotDetected); Coronavirus NL63 Not Detected (NotDetected); Coronavirus OC43 Not Detected (NotDetected); Coronovirus HKU1,PCR Not Detected (NotDetected); Human Metapneumovirus Not Detected (NotDetected); Influenza A, PCR Not Detected (NotDetected); Influenza AH1, 2009 Not Detected (NotDetected); Influenza AH1, PCR Not Detected (NotDetected); Influenza AH3,PCR Not Detected (NotDetected); Influenza B, PCR Not Detected (NotDetected); Mycoplasma Pneumoniae, PCR Not Detected (NotDetected); Parainfluenza 1, PCR Not Detected (NotDetected); Parainfluenza 2, PCR Not Detected (NotDetected); Parainfluenza 3, PCR Not Detected (NotDetected); Parainfluenza 4, PCR Not Detected (NotDetected); Respiratory Syncytial Virus Not Detected (NotDetected); Rhinovirus/Enterovirus Not Detected (NotDetected)
--- NOTE | 2021-03-16 14:30 | HMH.DCSUM ---
General - General Admission date:: 03/15/21 Discharge date: 03/16/21 Hospital Course Hospital Course: Pulmonary has seen and recommends: - F/U Comprehensive respiratory viral PCR. - DuoNebs every 6 hours scheduled - ESTEBAN, ANCA, RF and CCP, CRP - Start Prednisone 60 mg daily Objective Vital signs: Temp Pulse Resp BP Pulse Ox 98.0 F 59 L 18 178/82 H 96 03/16/21 11:40 03/16/21 11:40 03/16/21 11:40 03/16/21 12:56 03/16/21 11:40 Results Labs on day of discharge: Labs from last 24 hours 03/16/21 03/16/21 03/16/21 09:13 06:46 06:46 WBC RBC Hgb Hct MCV MCH MCHC RDW Plt Count MPV Neut % (Auto) Lymph % (Auto) [place] % (Auto) Eos % (Auto) Baso % (Auto) Neut # (Auto) Lymph # (Auto) [place] # (Auto) Eos # (Auto) Baso # (Auto) Total Counted Neutrophils % (Manual) Lymphocytes % (Manual) Monocytes % (Manual) Eosinophils % (Manual) Platelet Estimate RBC Morphology Specimen Source O2 % Ra ABG pH 7.42 ABG pCO2 40.1 ABG pO2 70.8 L ABG HCO3 25.6 ABG Total CO2 26.8 ABG O2 Saturation 96 ABG Base Excess 1.2 Ishan Test Sodium 138 Potassium 4.6 Chloride 106 Carbon Dioxide 28 Anion Gap 8.6 BUN 16 Creatinine 0.90 Estimated Creat Clear 147 Estimated GFR 92 Est GFR ( Amer) 111 Glucose 84 Calcium 8.9 C-Reactive Protein 0.7 Urine Color Urine Appearance Urine pH Ur Specific [place] Urine Protein Urine Glucose (UA) Urine Ketones Urine Blood Urine Nitrate Urine Bilirubin Urine Urobilinogen Ur Leukocyte Esterase Urine RBC Urine WBC Ur Squamous Epith Cells Urine Bacteria 03/16/21 03/15/21 03/15/21 06:46 16:18 15:30 WBC 16.3 H RBC 4.68 Hgb 14.5 Hct 41.8 L MCV 89.5 MCH 31.0 MCHC 34.7 RDW 13.8 Plt Count 345 MPV 7.6 Neut % (Auto) 66.3 Lymph % (Auto) 20.6 [place] % (Auto) 10.2 H Eos % (Auto) 2.1 Baso % (Auto) 0.7 Neut # (Auto) 10.8 H Lymph # (Auto) 3.4 [place] # (Auto) 1.7 H Eos # (Auto) 0.4 Baso # (Auto) 0.1 Total Counted 100 Neutrophils % (Manual) 64 Lymphocytes % (Manual) 22 Monocytes % (Manual) 12 H Eosinophils % (Manual) 2 Platelet Estimate Normal RBC Morphology Normal Specimen Source Left radial O2 % ABG pH 7.35 ABG pCO2 46.0 H ABG pO2 29.8 L ABG HCO3 24.7 ABG Total CO2 26.1 ABG O2 Saturation 61 L* ABG Base Excess -1.0 Ishan Test Acceptable Sodium Potassium Chloride Carbon Dioxide Anion Gap BUN Creatinine Estimated Creat Clear Estimated GFR Est GFR ( Amer) Glucose Calcium C-Reactive Protein Urine Color Yellow Urine Appearance Clear Urine pH 6.5 Ur Specific [place] 1.015 Urine Protein Negative Urine Glucose (UA) Negative Urine Ketones Negative Urine Blood Negative Urine Nitrate Negative Urine Bilirubin Negative Urine Urobilinogen 0.2 Ur Leukocyte Esterase Negative Urine RBC None Urine WBC None Ur Squamous Epith Cells None Urine Bacteria None DS: Diagnosis - Discharge Diagnosis (1) Dyspnea Status: Acute Discharge Plan - Patient Discharge Instructions ACTIVITY: Continue current activity DIET: continue same diet Patient Instructions: DI for Shortness of Breath - Follow up Plan Disposition: Home, Self-Care Condition at discharge:: Stable Home Medications: Home Medications Medication Instructions Recorded Confirmed Type melatonin 3 mg capsule 3 mg PO HS PRN 10/19/20 03/15/21 History Fluoxetine HCl [Prozac] 20 mg PO DAILY 03/15/21 03/15/21 History Gabapentin [Gabapentin 400mg Cap] 400 mg PO TID 03/15/21 03/15/21 History Ibuprofen 800 mg PO TID 03/15/21 03/15/21 History Prop
--- NOTE | 2021-03-16 15:57 | PC.NURSE ---
THIS RN PROVIDED D/C INSTRUCTIONS TO PATIENT'S MOTHER WHO IS ALSO HIS POA. NO NEW CONCERNS AT DISCHARGE.
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
[2021-03-18 17:32] LABS: Cytoplasmic (C-ANCA) <1:20 titer (Neg:<1:20); Perinuclear (P-ANCA) <1:20 titer (Neg:<1:20)
[2021-03-19 00:07] LABS: Anti-Cyclic Citrullinated Pept 13 units (0-19)
[2021-04-03 10:50] LABS: Antinuclear Antibodies (ANA) NEGATIVE
== END 2021-03-16 15:51 | disposition home or self-care (01) ==
LOC: ER 16:28 → 2ND 20:47
PROVIDERS: Internal Medicine Pulmonary Disease; Nurse Practitioner Family; Admitting Provider Family Medicine; Emergency Provider Emergency Medicine; PCP Family Medicine; Visit Provider Family Medicine
DX: J96.01 Acute respiratory failure with hypoxia (principal); J44.9 Chronic obstructive pulmonary disease, unspecified; Z87.820 Personal history of traumatic brain injury; F17.210 Nicotine dependence, cigarettes, uncomplicated; F41.9 Anxiety disorder, unspecified; F32.9 Major depressive disorder, single episode, unspecified
CPT/HCPCS: 71046; 71275; 80048; 81001; 82803; 84484; 85007; 85025; 86038; 86140; 86200; 86256; 86431; 87486; 87581; 87633; 87798; 93005; 94060; 96365; 96366; 99284; G0378; Q9967; U0003

== ENCOUNTER 2021-05-04 17:00 | Outpatient (RCR) | payer BC, SELFPAY | END 2021-05-04 17:05 | disposition home or self-care (01) | LOC: PT 17:00 | PROVIDERS: PCP Family Medicine | DX: S82.143A Displaced bicondylar fracture of unspecified tibia, initial encounter for closed fracture (principal) | CPT/HCPCS: 97010; 97014; 97110; 97112; 97116; 97163; 97164; G0283 ==

== ENCOUNTER → 2021-05-19 10:11 | Outpatient (CLI) | payer BC, SELFPAY | PROVIDERS: PCP Family Medicine; Visit Provider Internal Medicine Pulmonary Disease | DX: R06.09 Other forms of dyspnea (principal) | CPT/HCPCS: 94060; 94726; 94729 ==

== ENCOUNTER → 2021-06-27 10:06 | Outpatient (CLI) | payer BC, SELFPAY | PROVIDERS: Visit Provider Internal Medicine Pulmonary Disease | DX: Z20.822 Contact with and (suspected) exposure to COVID-19 (principal) | CPT/HCPCS: C9803; U0003; U0005 ==

== ENCOUNTER → 2021-12-07 14:37 | Outpatient (CLI) | payer BC, SELFPAY ==
[2021-12-07 15:45] LABS: C-Reactive Protein 1.7 mg/L (0-4)
== END ==
PROVIDERS: Visit Provider Internal Medicine Pulmonary Disease
DX: R06.00 Dyspnea, unspecified (principal)
CPT/HCPCS: 86140

== ENCOUNTER → 2022-03-14 13:11 | Outpatient (CLI) | payer BC, SELFPAY ==
[2022-03-14 14:26] VITALS: BP 128/80; BP 130/88; PULSE 89; PULSE 90; PULSE 92; RESP 16; O2SAT 95; O2SAT 98
--- NOTE | 2022-03-14 14:41 | CT_ITS ---
FINAL REPORT TECHNIQUE: Axial images through the chest was performed by computed tomography. Sagittal and coronal reformatted images were obtained and reviewed. High-resolution technique was performed with supine inspiration and expiration and prone inspiration. CLINICAL HISTORY: soa, COMPARISON: 03/15/2021 FINDINGS: There is no axillary adenopathy. There is no hilar or mediastinal mass or adenopathy. Heart size is normal. There is no pericardial or pleural effusion. Limited images of the upper abdomen are unremarkable. There has been interval resolution in the ground-glass opacities seen on the prior exam. There is no evidence of interstitial lung disease, emphysema, or bronchiectasis. There is minimal scarring in the right lung base. There is a calcified granuloma in the left lower lobe. There is partial collapse of the gallbladder with multiple stones. IMPRESSION: Interval resolution of the ground-glass opacities. No evidence of interstitial lung disease, emphysema, or bronchiectasis. Partial collapse of the gallbladder with multiple stones. Reviewed, Interpreted and Dictated by Corey Washington III, MD Transcribed by Reema Weaver Authenticated by Corey Washington III, MD on 03/14/2022 04:55:[address] [facility]
== END ==
PROVIDERS: PCP Family Medicine; Visit Provider Internal Medicine Pulmonary Disease
DX: R06.02 Shortness of breath (principal); J84.9 Interstitial pulmonary disease, unspecified
CPT/HCPCS: 71250; 94060; 94618; 94640; 94726; 94729

== ENCOUNTER 2022-04-23 13:50 | Emergency (ER) | payer BC, SELFPAY ==
[2022-04-23 13:51] VITALS: BP 128/91; PULSE 81; RESP 16; TEMP 36.8; O2SAT 99; BMI 28.2
--- NOTE | 2022-04-23 14:06 | XR_ITS ---
PROCEDURE INFORMATION: Exam: XR Right Knee Exam date and time: 04/23/2022 2:07 PM Age: 46 years old Clinical indication: Pain; Knee; Right TECHNIQUE: Imaging protocol: Radiologic exam of the Right knee. Views: 1 or 2 views. COMPARISON: CR [id number] OR 5 [id number] 08/23/2017 2:22 PM FINDINGS: Bones/joints: Osseous anatomic alignment is well preserved. No acutely displaced fracture or dislocation. Joint spaces are well preserved. Soft tissues: No significant soft tissue swelling. IMPRESSION: No acute findings.
--- NOTE | 2022-04-23 14:06 | XR_ITS ---
PROCEDURE INFORMATION: Exam: XR Right Tibia and Fibula Exam date and time: 04/23/2022 2:08 PM Age: 46 years old Clinical indication: Pain; Lower leg; Right TECHNIQUE: Imaging protocol: Radiologic exam of the Right tibia and fibula. Views: 2 views. COMPARISON: [id number] CT EXT.LOWER-RT-W/O CONTRAST 07/25/2017 2:31 PM FINDINGS: Bones/joints: Osseous anatomic alignment is well preserved. No acutely displaced fracture or dislocation. Joint spaces are well preserved. Soft tissues: No significant soft tissue swelling. IMPRESSION: No acute findings.
--- NOTE | 2022-04-23 14:30 | HMH.EDGENADL ---
ED Disposition Clinical Impression: Patellar tendinitis Qualifiers: Laterality: right Qualified Code(s): M76.51 - Patellar tendinitis, right knee Disposition: Home, Self-Care Condition on Discharge: Good Instructions: How to Use Crutches, DI for Patellar Tendinopathy, How to Use a Knee Immobilizer Additional Instructions: Crutches and knee immobilizer until followed up by orthopedics, Dr. Eric. Call Dr. Eric to make appointment. Ibuprofen and Leroy as prescribed. Additional instructions for CONTROLLED SUBSTANCES: You have been prescribed a medication that is a controlled substance. Controlled substances include pain medications known as opiates and sedative nerve medications known as benzodiazepines. Tramadol, fioricet, and gabapentin are also controlled substances. Some common opiates include: Codeine (such as Tylenol #3) Hydrocodone (Vicodin, Lortab, Lorcet, Leroy) Oxycodone (Percocet, Percodan, Oxycodone, Oxy IR) Some common benzodiazepines include: Diazepam (Valium) Lorazepam (Ativan) Alprazolam (Xanax) Clonazepam (Klonopin) Oxazepam (Serax) All of these controlled substances are highly addictive and frequently abused. Misuse can and frequently does lead to addiction as well as overdose and . Medication should be stored in a locked cabinet or other secure storage unit. Do not store the medication in a motor vehicle. Short term supplies, 3 days or less, are prescribed because of the highly addictive nature of the medication. Any of the controlled substance medication NOT taken should be disposed of properly and NOT SAVED. The recommended method of disposing of unused medications is: Place the medicines in a sealable plastic bag. If the medicine is a solid, crush it or add water to dissolve it. Add something undesirable (cat litter, coffee grounds, etc.) Dispose of sealed bag in household trash Do not flush or pour unused medicines down a sink or drain. Controlled substances should not be shared, given away or sold. Because of the addictive nature and frequent abuse, these medications are sometimes stolen. These medications should be kept in a safe place where they cannot be stolen. Do not keep them in your car or purse. Lost or stolen prescriptions for controlled substances WILL NOT BE REFILLED in this emergency department, regardless of whether a police report was filed. Prescriptions: Hydrocod/Acet 5/325 mg [Leroy 5/325mg tablet] 1 tab PO Q6HP PRN #8 tab PRN Reason: Pain Transmission Status: Received by [facility] Ibuprofen [Ibuprofen 800mg Tablet] 800 mg PO Q8HP PRN #15 tab PRN Reason: Moderate Pain Transmission Status: Received by [facility] Referrals: Wagner Cowan MD [Primary Care Provider] - Juan Eric MD [Staff Physician] - - Critical Care Critical Care Time: No Attestation: On 04/23/22, the high probability of a clinically significant, sudden or life threatening deterioration of the following system(s) required my full and direct attention, intervention and personal management. The time I documented below is in addition to time spent performing reported procedures but includes the following listed in this critical care notation. Medical Decision Making - Manjit Inquiry Pt receiving controlled substance: Yes Manjit was queried for this patient: Yes Risks and benefits of using a controlled substance: were discussed with pt by me Vital Signs: 04/23/22 13:51 Temperature 98.2 F Temperature Source Oral Pulse Rate [Left Radial] 81 Respiratory Rate 16 Blood Pressure [Right Arm] 128/91 H Blood Pressure Mean [Right Arm] 103 Blood Pressure Source [Right Arm] Automatic Cuff Blood Pressure Position [Right Arm] Sitting 02 Sat by Pulse Oximetry 99 Oxygen Delivery Method Room Air - Radiology Data #1 Image(s): Knee, Tib/Fib Image Reviewed: Yes I reviewed the patient's radiology image, Yes I have reviewed radiologist's interpret
--- NOTE | 2022-04-23 14:42 | PC.NURSE ---
CAROLINA CORRALES at speaking to patient
[2022-04-23 15:45] VITALS: BP 124/70; PULSE 80; RESP 16; TEMP 36.8; O2SAT 98
== END 2022-04-23 15:46 | disposition home or self-care (01) ==
PROVIDERS: Emergency Provider Emergency Medicine; PCP Family Medicine
DX: M76.51 Patellar tendinitis, right knee (principal); Z87.39 Personal history of other diseases of the musculoskeletal system and connective tissue
CPT/HCPCS: 73560; 73590; 99283

== ENCOUNTER 2022-06-13 00:18 | Emergency (ER) | payer BC, SELFPAY ==
[2022-06-13 00:19] VITALS: BP 162/112; PULSE 75; RESP 22; TEMP 36.9; O2SAT 98; BMI 29.8
[2022-06-13 00:35] VITALS: BP 0/0; PULSE 0; RESP 0; TEMP -17.7; TEMP 0; O2SAT 0
== END 2022-06-13 00:36 | disposition left against medical advice (07) ==
LOC: ER 00:23
PROVIDERS: Emergency Provider Emergency Medicine; PCP Family Medicine
DX: Z53.29 Procedure and treatment not carried out because of patient's decision for other reasons (principal)

== ENCOUNTER → 2022-09-22 13:37 | Outpatient (CLI) | payer BC, SELFPAY ==
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
== END ==
PROVIDERS: PCP Family Medicine; Visit Provider Family Medicine
DX: R91.8 Other nonspecific abnormal finding of lung field (principal); Z72.0 Tobacco use
CPT/HCPCS: 71046

== ENCOUNTER → 2022-10-02 15:04 | Outpatient (CLI) | payer BC, SELFPAY ==
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
== END ==
PROVIDERS: PCP Family Medicine; Visit Provider Nurse Practitioner Family
DX: M79.671 Pain in right foot (principal)
CPT/HCPCS: 73630

== ENCOUNTER → 2022-11-16 15:21 | Outpatient (CLI) | payer BC, SELFPAY ==
--- NOTE | 2022-11-16 15:23 | US_ITS ---
FINAL REPORT CLINICAL HISTORY: decreased sensation, current smoker, HTN, bilateral claudication, bilateral rest pain. FINDINGS: ANKLE-BRACHIAL PRESSURE INDICES Pressure indices are as follows: RIGHT LOWER EXTREMITY: Ankle-brachial pressure index: 1.2 Comments: Normal LEFT LOWER EXTREMITY: Ankle-brachial pressure index: 1.2 Comments: Normal CONCLUSION: No evidence of significant obstructive peripheral vascular disease of the lower extremities Reviewed, Interpreted and Dictated by Corey Washington III, MD Transcribed by Reba Robles Authenticated and [facility]
== END ==
PROVIDERS: PCP Family Medicine; Visit Provider Nurse Practitioner Family
DX: R20.2 Paresthesia of skin (principal); R09.89 Other specified symptoms and signs involving the circulatory and respiratory systems
CPT/HCPCS: 93923

== ENCOUNTER → 2023-04-30 11:27 | Outpatient (CLI) | payer BC, SELFPAY ==
--- NOTE | 2023-04-30 11:56 | CT_ITS ---
FINAL REPORT TECHNIQUE: Axial CT of the brain was performed without and with contrast. Coronal reformatted images were obtained. This study was performed with techniques to keep radiation doses as low as reasonably achievable, (ALARA). Individualized dose reduction techniques using automated exposure control or adjustment of mA and/or kV according to the patient's size were employed. CLINICAL HISTORY: right facial swelling COMPARISON: 10/18/2020 FINDINGS: There is no mass effect or midline shift. There is no hydrocephalus. The ventricles are symmetric in size and configuration. There is no extra-axial or intraparenchymal hemorrhage. Postoperative changes from right craniotomy with likely chronic small extra-axial collection deep to the craniotomy defect. Age-indeterminate asymmetric hypodensity in the right superior cerebellum and more lateral right inferior cerebellum. Age-indeterminate ischemia is a concern. The soft tissues are without acute abnormality. There are postoperative changes of the right mastoid air cells with chronic opacification of the remaining air cells. Appearance of craniotomy is stable otherwise. No acute osseous abnormality is identified. No abnormal contrast enhancement is seen. IMPRESSION: No mass effect, midline shift, or intracranial hemorrhage. Postoperative changes from right craniotomy with likely chronic extra-axial collection deep to the craniotomy defect. New areas of hypodensity right cerebellum from prior. Ischemia not excluded. Consider MRI. Reviewed, Interpreted and Dictated by Julia Beverly MD Transcribed by Nancy Jolly Authenticated and [facility]
[2023-04-30 12:21] LABS: Blood Urea Nitrogen 20 mg/dl (9-20); Estimated Glomerular Filt Rate 72 ml/min (>60); GFR (African American) 87 ML/MIN (>60)
== END ==
PROVIDERS: PCP Family Medicine; Visit Provider Student in an Organized Health Care Education/Training Program
DX: G44.309 Post-traumatic headache, unspecified, not intractable (principal); S06.9X9S Unspecified intracranial injury with loss of consciousness of unspecified duration, sequela
CPT/HCPCS: 36415; 70470; 82565; 84520; Q9966

== ENCOUNTER → 2023-05-28 10:40 | Outpatient (CLI) | payer BC, SELFPAY ==
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
[2023-05-28 12:16] LABS: POC Glucose,Bedside 97 (70-110)
== END ==
PROVIDERS: PCP Family Medicine; Visit Provider Student in an Organized Health Care Education/Training Program
DX: S06.9X9S Unspecified intracranial injury with loss of consciousness of unspecified duration, sequela (principal)
CPT/HCPCS: 70553; 82962; A9576

== ENCOUNTER 2023-05-28 12:09 | Observation (INO) | payer BC, SELFPAY ==
[2023-05-28] VITALS (10 sets, daily range): BP systolic 84–110; BP diastolic 47–76; PULSE 51–72; RESP 16–20; TEMP 36.3–37; O2SAT 92–100; BMI 23.1; BMI 26.6
--- NOTE | 2023-05-28 12:13 | ECG_ITS ---
APPROVED REPORT Exam: Resting ECG HR:68 bpm ECG Measurements Heart Rate 68 AXES [place] 157 P 33 QRSd 96 QRS 17 QT 377 T 34 QTc 395 Conclusion SINUS RHYTHM NORMAL ECG UNCONFIRMED REPORT Electronically signed by : Didier Ball MD 05/28/2023 13:57:40
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
--- NOTE | 2023-05-28 12:55 | PC.NURSE ---
pt resting playing my on phone
[2023-05-28 13:05] LABS: Basophils # 0.1 K/mm3 (0-0.2); Basophils % 0.4 % (0.1-2.0); Eosinophils # 0.3 K/mm3 (0.0-0.4); Eosinophils % 1.9 % (0.1-12.0); Hematocrit 42.9 % (42.0-52.0); Hemoglobin 14.7 g/dL (14.1-18.0); Lymphocytes # 2.5 K/mm3 (0.7-4.5); Lymphocytes % 17.9 % (10-50); Mean Corpuscular HGB Conc 34.2 g/dL (31.8-35.4); Mean Corpuscular Hemoglobin 31.8 pg (27.0-31.2); Mean Corpuscular Volume 92.9 fl (80-94); Monocytes # 1.2 K/mm3 (0.1-1.0); Monocytes % 8.4 % (1.7-9.3); Neutrophils % 71.3 % (37.0-80.0); Platelet Count 214 K/mm3 (142-424); Red Blood Count 4.62 M/mm3 (4.60-6.20); Red Cell Distribution Width 13.1 % (11.5-17.5)
[2023-05-28 13:06] LABS: Alanine Aminotransferase 33 U/L (12-78); Albumin Level 4.2 g/dl (3.5-5.0); Albumin/Globulin Ratio 1.4 (1.1-1.8); Alkaline Phosphatase 60 U/L (38-126); Anion Gap 14.1 mEq/L (5-15); Aspartate Amino Transferase 37 U/L (17-59); Bilirubin,Total 0.3 mg/dl (0.2-1.3); Blood Urea Nitrogen 50 mg/dl (9-20); Calcium 9.1 mg/dl (8.4-10.2); Carbon Dioxide 24 mmol/L (22.0-30.0); Chloride 103 mmol/L (98-107); Creatinine Clearance Estimated 36 mL/min (50-200); Estimated Glomerular Filt Rate 24 ml/min (>60); GFR (African American) 28 ML/MIN (>60); Globulin 2.9 g/dL (1.3-3.2); Glucose 90 mg/dl (74-100); Magnesium 2.4 mg/dl (1.6-2.3); Potassium 4.1 mmoL/L (3.5-5.1); Sodium 137 mmol/L (136-145); Total Protein,Serum 7.1 g/dl (6.3-8.2)
[2023-05-28 13:19] LABS: Troponin I < 0.01 ng/ml (0.00-0.034)
--- NOTE | 2023-05-28 13:23 | PC.NURSE ---
called CM for admission
--- NOTE | 2023-05-28 13:55 | PC.NURSE ---
report called to yusef reid RN
--- NOTE | 2023-05-28 14:35 | PC.NURSE ---
arrived by stretcher from ED
--- NOTE | 2023-05-28 14:54 | EXP.HP ---
History of Present Illness *Admission Date: 05/28/23 *Reason for visit:: Dizziness, near syncope while getting MRI *History of present illness: Mr. Piper is a 47-year-old male with history of TBI 3 years ago. Presented to outpatient MRI for evaluation due to 5 days of dizziness. Of note he recently had a CT scan which was read as having some possible abnormalities. MRI was recommended from the scan. An MRI today, he continued to feel dizzy and had a near syncopal event accompanied by headache while in the scanner. Rapid response was called. Patient never frankly lost consciousness. Was brought to the ER for further evaluation. The MRI was completed and at the end of imaging he developed lightheadedness, dizziness, and diaphoresis. Dizziness improved upon arrival to the ER but patient was noted to be hypotensive and bradycardic. Labs obtained showing PETER. Initiated on IV fluids. Given his blood pressure abnormality and PETER, medicine consulted for admission overnight for monitoring and fluid resuscitation. Upon arrival to the floor after admission, patient is tolerating p.o. intake. Stable on room air. Blood pressure remains soft with systolic just above 100. Heart rate still bradycardic in the 50s. Patient denies any dizziness at this time or headache. States he is feeling somewhat better in that respect. Tolerating p.o. hydration. [facility] Disclaimer: The information contained in this section may have been updated after the patient was seen, as this information can be updated by other users. Medical History COPD (chronic obstructive pulmonary disease) Hypertension Knee fracture, left Surgical History H/O craniotomy Family History No significant family history Social History Smoking Status: Current every day smoker tobacco type: cigarettes packs per day: 1 second hand exposure: No alcohol intake: never substance use type: marijuana (Pt reports he does not smoke very often. ) current occupational status: other Travel in the last 8 weeks: None Review of Systems Review of Systems Review of systems (narrative): 14 point review of systems performed, pertinent positives and negatives as per HPI Meds Home Medications and Allergies Home Medications Medication Instructions Recorded Confirmed Type amlodipine 10 mg-benazepril 20 mg 1 cap PO DAILY High Blood Pressure 05/28/23 05/28/23 History capsule (Lotrel) divalproex 250 mg tablet,delayed 500 mg PO BID Seizures 05/28/23 05/28/23 History release donepezil 5 mg tablet 5 mg PO DAILY Mental Function 05/28/23 05/28/23 History fluoxetine 10 mg capsule 10 mg PO DAILY Mood 05/28/23 05/28/23 History ibuprofen 800 mg tablet 800 mg PO BIDP PRN Pain or Fever 05/28/23 05/28/23 History propranolol 10 mg tablet 10 mg PO TID High Blood Pressure 05/28/23 05/28/23 History tiotropium 2.5 mcg-olodaterol 2.5 2 puff inhalation DAILY Copd 05/28/23 05/28/23 History mcg/actuation mist for inhalation (Stiolto Respimat) New Prescriptions to Start Prescriptions: Allergies Allergy/AdvReac Type Severity Reaction Status Date / Time No Known Allergies Allergy Verified 05/28/23 14:39 Exam Data for Last 24 hours Vital signs and Labs for Last 24 Hours: Temp Pulse Resp BP Pulse Ox O2 Del Method 97.4 F L 55 L 19 94/64 L 100 Room Air 05/28/23 14:48 05/28/23 14:48 05/28/23 14:48 05/28/23 14:48 05/28/23 14:48 05/28/23 14:48 Laboratory Results - last 24 hr 05/28/23 12:44: Sodium 137, Potassium 4.1, Chloride 103, Carbon Dioxide 24, Anion Gap 14.1, BUN 50 H, Creatinine 2.90 H, Estimated Creat Clear 36, Estimated GFR 24 L, Est GFR ( Amer) 28 L, Glucose 90, Calcium 9.1, Magnesium 2.4 H, Total Bilirubin 0.3, AST 37, ALT 33, Alkaline Phosphata
--- NOTE | 2023-05-28 15:12 | HMH.PHAINT1 ---
Pharmacy Intervention Comments: Medication history complete, medications verified with patient and fill history. Of note, patient had donepezil filled on 05/18 but did not recognize the medication, med was left in the med list because he had filled it so recently. - Zoila Neely, PharmD Candidate 2023
[2023-05-28 16:00] LABS: Troponin I < 0.01 ng/ml (0.00-0.034)
[2023-05-28 20:35] LABS: Chloride 105 mmol/L (98-107); Sodium 136 mmol/L (136-145)
[2023-05-28 20:36] LABS: Potassium 4.7 mmoL/L (3.5-5.1)
[2023-05-28 20:38] LABS: Blood Urea Nitrogen 50 mg/dl (9-20); Creatinine Clearance Estimated 65 mL/min (50-200); Estimated Glomerular Filt Rate 41 ml/min (>60); GFR (African American) 49 ML/MIN (>60)
[2023-05-28 20:39] LABS: Anion Gap 12.7 mEq/L (5-15); Carbon Dioxide 23 mmol/L (22.0-30.0); Glucose 79 mg/dl (74-100)
[2023-05-29 04:00] VITALS: BP 121/78; PULSE 60; RESP 16; TEMP 36.3; O2SAT 98; BMI 26.6
[2023-05-29 06:39] LABS: Basophils # 0.1 K/mm3 (0-0.2); Basophils % 0.6 % (0.1-2.0); Eosinophils # 0.3 K/mm3 (0.0-0.4); Eosinophils % 2.4 % (0.1-12.0); Hematocrit 42.1 % (42.0-52.0); Hemoglobin 13.7 g/dL (14.1-18.0); Lymphocytes # 3.3 K/mm3 (0.7-4.5); Lymphocytes % 31.7 % (10-50); Mean Corpuscular HGB Conc 32.7 g/dL (31.8-35.4); Mean Corpuscular Volume 91.7 fl (80-94); Mean Platelet Volume 8.8 fl (7.4-10.4); Monocytes % 9.7 % (1.7-9.3); Neutrophils # 5.7 K/mm3 (1.8-7.8); Neutrophils % 55.4 % (37.0-80.0); Platelet Count 173 K/mm3 (142-424); Red Blood Count 4.59 M/mm3 (4.60-6.20); Red Cell Distribution Width 13.2 % (11.5-17.5); White Blood Count 10.3 K/mm3 (4.8-10.8)
[2023-05-29 06:43] LABS: Alanine Aminotransferase 28 U/L (12-78); Albumin Level 3.8 g/dl (3.5-5.0); Albumin/Globulin Ratio 1.7 (1.1-1.8); Alkaline Phosphatase 50 U/L (38-126); Aspartate Amino Transferase 26 U/L (17-59); Bilirubin,Total 0.3 mg/dl (0.2-1.3); Blood Urea Nitrogen 42 mg/dl (9-20); Calcium 8.7 mg/dl (8.4-10.2); Carbon Dioxide 28 mmol/L (22.0-30.0); Chloride 104 mmol/L (98-107); Creatinine Clearance Estimated 83 mL/min (50-200); Estimated Glomerular Filt Rate 55 ml/min (>60); GFR (African American) 66 ML/MIN (>60); Globulin 2.3 g/dL (1.3-3.2); Glucose 76 mg/dl (74-100); Magnesium 2.1 mg/dl (1.6-2.3); Sodium 138 mmol/L (136-145); Total Protein,Serum 6.1 g/dl (6.3-8.2)
[2023-05-29 07:49] VITALS: BP 132/90; PULSE 63; RESP 18; TEMP 37; O2SAT 99
--- NOTE | 2023-05-29 09:13 | EXP.DC.SUM ---
General Admission date:: 05/28/23 Discharge date: 05/29/23 HPI HPI HPI: Mr. Piper is a 47-year-old male with history of TBI 3 years ago. Presented to outpatient MRI for evaluation due to 5 days of dizziness. Of note he recently had a CT scan which was read as having some possible abnormalities. MRI was recommended from the scan. An MRI today, he continued to feel dizzy and had a near syncopal event accompanied by headache while in the scanner. Rapid response was called. Patient never frankly lost consciousness. Was brought to the ER for further evaluation. The MRI was completed and at the end of imaging he developed lightheadedness, dizziness, and diaphoresis. Dizziness improved upon arrival to the ER but patient was noted to be hypotensive and bradycardic. Labs obtained showing PETER. Initiated on IV fluids. Given his blood pressure abnormality and PETER, medicine consulted for admission overnight for monitoring and fluid resuscitation. Upon arrival to the floor after admission, patient is tolerating p.o. intake. Stable on room air. Blood pressure remains soft with systolic just above 100. Heart rate still bradycardic in the 50s. Patient denies any dizziness at this time or headache. States he is feeling somewhat better in that respect. Tolerating p.o. hydration. Hospital Course Hospital Course Hospital Course: The patient's MRI did not reveal any acute intracranial abnormality. Kidney function improved with iv fluids. Creatinine level decreased from 2.9 to 1.8 to 1.4. Hypotension resolved with iv fluids and blood pressure ranged 121/78 to 132/90 on the day of discharge. His Lotrel and propranolol were held throughout the hospital course. He was instructed to hold his blood pressure medications until he establishes care with a new PCP in 3-5 days. He requested a new PCP that practices closer to him. Exam Data for Last 24 hours Vital signs and Labs for Last 24 Hours: Temp Pulse Resp BP Pulse Ox O2 Del Method 98.6 F 63 18 132/90 99 Room Air 05/29/23 07:49 05/29/23 07:49 05/29/23 07:49 05/29/23 07:49 05/29/23 07:49 05/29/23 07:49 Laboratory Results - last 24 hr 05/28/23 12:44: Sodium 137, Potassium 4.1, Chloride 103, Carbon Dioxide 24, Anion Gap 14.1, BUN 50 H, Creatinine 2.90 H, Estimated Creat Clear 36, Estimated GFR 24 L, Est GFR ( Amer) 28 L, Glucose 90, Calcium 9.1, Magnesium 2.4 H, Total Bilirubin 0.3, AST 37, ALT 33, Alkaline Phosphatase 60, Troponin I < 0.01, Total Protein 7.1, Albumin 4.2, Globulin 2.9, Albumin/Globulin Ratio 1.4, TSH 3.80 05/28/23 12:46: WBC 14.0 H, RBC 4.62, Hgb 14.7, Hct 42.9, MCV 92.9, MCH 31.8 H, MCHC 34.2, RDW 13.1, Plt Count 214, MPV 8.0, Neut % (Auto) 71.3, Lymph % (Auto) 17.9, Walton % (Auto) 8.4, Eos % (Auto) 1.9, Baso % (Auto) 0.4, Neut # (Auto) 10.0 H, Lymph # (Auto) 2.5, Walton # (Auto) 1.2 H, Eos # (Auto) 0.3, Baso # (Auto) 0.1 05/28/23 15:21: Troponin I < 0.01 05/28/23 20:10: Sodium 136, Potassium 4.7, Chloride 105, Carbon Dioxide 23, Anion Gap 12.7, BUN 50 H, Creatinine 1.80 H D, Estimated Creat Clear 65, Estimated GFR 41 L, Est GFR ( Amer) 49 L D, Glucose 79, Calcium 9.0 05/29/23 05:46: WBC 10.3 D, RBC 4.59 L, Hgb 13.7 L, Hct 42.1, MCV 91.7, MCH 30.0, MCHC 32.7, RDW 13.2, Plt Count 173, MPV 8.8, Neut % (Auto) 55.4, Lymph % (Auto) 31.7, Walton % (Auto) 9.7 H, Eos % (Auto) 2.4, Baso % (Auto) 0.6, Neut # (Auto) 5.7, Lymph # (Auto) 3.3, Walton # (Auto) 1.0, Eos # (Auto) 0.3, Baso # (Auto) 0.1, Sodium 138, Potassium 4.0, Chloride 104, Carbon Dioxide 28, Anion Gap 10.0, BUN 42 H, Creatinine 1.40 H D, Estimated Creat Clear 83, Estimated GFR 55 L, Est GFR ( Amer) 66 D, Glucose 76, Calcium 8.7, Magnesium 2.1 D, Total Bilirubin 0.3, AST 26 D, ALT 28, Alkaline Phosphatase 50, Total Protein 6.1 L, Albumin 3.8, Globulin 2.3, Albumin/Globulin Ratio 1.7 I & O for Last 24 hours: Intake & Output 05/26/23 05/27/23 05/28/23 05/29/23 23:59 23:59 23:59 23:59 Intake Total 980 /
--- NOTE | 2023-06-01 13:06 | CARE MANAGER ---
Attempted to contact patient related to hospital discharge x2. Left VM message. DOMENICA Martinez
== END 2023-05-29 09:45 | disposition home or self-care (01) ==
LOC: ER 13:26 → 2ND 14:00
PROVIDERS: Admitting Provider Internal Medicine Adolescent Medicine; Emergency Provider Student in an Organized Health Care Education/Training Program; PCP Family Medicine; Visit Provider Internal Medicine Adolescent Medicine
DX: N17.9 Acute kidney failure, unspecified (principal); I95.9 Hypotension, unspecified; R55 Syncope and collapse; I10 Essential (primary) hypertension; J43.9 Emphysema, unspecified; Z79.899 Other long term (current) drug therapy
CPT/HCPCS: 36415; 80048; 80053; 80165; 83735; 84443; 84484; 85025; 87040; 93005; 99285; G0378

== ENCOUNTER 2023-06-03 22:16 | Emergency (ER) | payer BC, SELFPAY ==
[2023-06-03 22:28] VITALS: BP 125/79; PULSE 77; RESP 14; TEMP 36.5; O2SAT 97; BMI 27.3
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
[2023-06-03 23:03] VITALS: BP 145/91; PULSE 89; O2SAT 98
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
--- NOTE | 2023-06-03 23:21 | PC.NURSE ---
in room talking with patient at this time.
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
[2023-06-04 00:01] VITALS: BP 162/98; PULSE 86; O2SAT 97
--- NOTE | 2023-06-04 00:37 | PC.NURSE ---
Rounded on pt. Lights turned off per pt request. No other needs voiced. Call light within reach.
[2023-06-04 01:48] VITALS: BP 122/71; PULSE 78; RESP 18; TEMP 36.5; O2SAT 98
== END 2023-06-04 02:05 | disposition home or self-care (01) ==
PROVIDERS: Emergency Provider Emergency Medicine
DX: M79.602 Pain in left arm (principal); M25.562 Pain in left knee; V28.09XA Other motorcycle driver injured in noncollision transport accident in nontraffic accident, initial encounter; S50.312A Abrasion of left elbow, initial encounter; J44.9 Chronic obstructive pulmonary disease, unspecified; I10 Essential (primary) hypertension; F17.210 Nicotine dependence, cigarettes, uncomplicated
CPT/HCPCS: 70450; 71045; 72125; 72128; 72131; 72170; 73080; 73090; 73562; 99285

== ENCOUNTER 2023-06-18 15:35 | Emergency (ER) | payer BC, SELFPAY ==
[2023-06-18 15:36] VITALS: BP 157/104; PULSE 80; RESP 18; TEMP 37.1; O2SAT 98; BMI 29.8
--- NOTE | 2023-06-18 16:37 | XR_ITS ---
PROCEDURE INFORMATION: Exam: XR Left Tibia and Fibula Exam date and time: 06/18/2023 4:35 PM Age: 47 years old Clinical indication: Pain; Lower leg; Left TECHNIQUE: Imaging protocol: Radiologic exam of the left tibia and fibula. Views: 2 views. COMPARISON: US ARTERIAL LOWER EXT REST 11/16/2022 3:27 PM FINDINGS: Bones/joints: Surgical hardware in the proximal tibia. Vacated screw tracts in the mid tibia. Partially visualized degenerative disease of the knee and ankle. No acute fracture or dislocation is identified. Soft tissues: Normal. IMPRESSION: Degenerative disease and postsurgical change without acute injury identified.
--- NOTE | 2023-06-18 16:37 | XR_ITS ---
PROCEDURE INFORMATION: Exam: XR Left Knee Exam date and time: 06/18/2023 4:39 PM Age: 47 years old Clinical indication: Pain; Knee; Left TECHNIQUE: Imaging protocol: Radiologic exam of the left knee. Views: 1 or 2 views. COMPARISON: CR XR KNEE LT 3V 06/03/2023 10:40 PM FINDINGS: Bones/joints: Surgical hardware along the lateral aspect of the proximal tibia. There is tricompartmental osteoarthritis with loss of joint space, subchondral sclerosis, and productive changes. No acute fracture or dislocation is identified. Soft tissues: Normal. IMPRESSION: Degenerative disease and postsurgical change without acute injury identified.
--- NOTE | 2023-06-18 16:37 | XR_ITS ---
PROCEDURE INFORMATION: Exam: XR Left Foot Exam date and time: 06/18/2023 4:37 PM Age: 47 years old Clinical indication: Pain; Foot; Left TECHNIQUE: Imaging protocol: Radiologic exam of the left foot. Views: 1 or 2 views. COMPARISON: CR XR TIBIA FIBULA LT 2V 06/18/2023 4:35 PM FINDINGS: Bones/joints: Normal. Soft tissues: Normal. IMPRESSION: No acute findings.
--- NOTE | 2023-06-18 16:41 | PC.NURSE ---
Going to XR with veterinary technology instructor
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
--- NOTE | 2023-06-18 18:45 | PC.NURSE ---
pt cheked on earlier was sleeping, code in progress in ER checked again and admissions said pt walked out. lwobs
[2023-06-18 19:10] VITALS: BP 0/0; PULSE 0; RESP 0; TEMP -17.7; TEMP 0; O2SAT 0
== END 2023-06-18 19:11 | disposition left against medical advice (07) ==
PROVIDERS: Emergency Provider Emergency Medicine; PCP Nurse Practitioner Family
DX: M79.672 Pain in left foot (principal); R22.42 Localized swelling, mass and lump, left lower limb; J44.9 Chronic obstructive pulmonary disease, unspecified; I10 Essential (primary) hypertension; F17.210 Nicotine dependence, cigarettes, uncomplicated; V29.99XA Rider (driver) (passenger) of other motorcycle injured in unspecified traffic accident, initial encounter
CPT/HCPCS: 73560; 73590; 73620; 99284

== ENCOUNTER → 2023-06-21 16:25 | Outpatient (CLI) | payer BC, SELFPAY ==
[2023-06-21 16:06] LABS: Chloride 108 mmol/L (98-107); Potassium 4.4 mmoL/L (3.5-5.1); Sodium 144 mmol/L (136-145)
[2023-06-21 16:09] LABS: Alanine Aminotransferase 53 U/L (12-78); Albumin Level 4.6 g/dl (3.5-5.0); Albumin/Globulin Ratio 1.8 (1.1-1.8); Alkaline Phosphatase 76 U/L (38-126); Anion Gap 19.4 mEq/L (5-15); Aspartate Amino Transferase 37 U/L (17-59); Bilirubin,Total 0.4 mg/dl (0.2-1.3); Blood Urea Nitrogen 20 mg/dl (9-20); Calcium 10.4 mg/dl (8.4-10.2); Carbon Dioxide 21 mmol/L (22.0-30.0); Estimated Glomerular Filt Rate 65 ml/min (>60); GFR (African American) 79 ML/MIN (>60); Globulin 2.6 g/dL (1.3-3.2); Glucose 100 mg/dl (74-100); Total Protein,Serum 7.2 g/dl (6.3-8.2)
== END ==
PROVIDERS: PCP Nurse Practitioner Family; Visit Provider Nurse Practitioner Family
DX: I10 Essential (primary) hypertension (principal)
CPT/HCPCS: 80053

== ENCOUNTER 2023-10-25 14:00 | Outpatient (RCR) | payer BC, SELFPAY | END 2023-10-25 15:20 | disposition home or self-care (01) | LOC: PT 14:00 | PROVIDERS: PCP Nurse Practitioner Family; Visit Provider Student in an Organized Health Care Education/Training Program | DX: R41.841 Cognitive communication deficit (principal); R47.9 Unspecified speech disturbances; V29.99XD Rider (driver) (passenger) of other motorcycle injured in unspecified traffic accident, subsequent encounter | CPT/HCPCS: 97010; 97014; 97110; 97112; 97163; 97164; 97530; G0283 ==

== ENCOUNTER 2023-12-07 09:00 | Outpatient (RCR) | payer BC, SELFPAY ==
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
== END 2023-12-07 10:15 | disposition home or self-care (01) ==
LOC: ST 09:00
PROVIDERS: PCP Nurse Practitioner Family; Visit Provider Student in an Organized Health Care Education/Training Program
DX: S09.90XA Unspecified injury of head, initial encounter; V29.99XS Rider (driver) (passenger) of other motorcycle injured in unspecified traffic accident, sequela; R47.89 Other speech disturbances
CPT/HCPCS: 92507; 92523; 97129; 97130

== ENCOUNTER 2023-12-18 14:00 | Outpatient (RCR) | payer BC, SELFPAY | END 2023-12-18 15:20 | disposition home or self-care (01) | LOC: PT 14:00 | PROVIDERS: PCP Nurse Practitioner Family; Visit Provider Family Medicine | DX: M17.32 Unilateral post-traumatic osteoarthritis, left knee (principal); M70.52 Other bursitis of knee, left knee | CPT/HCPCS: 20560; 97010; 97014; 97110; 97112; 97140; 97163; 97530; G0283 ==

== ENCOUNTER 2023-12-18 14:00 | Outpatient (RCR) | payer BC, SELFPAY | END 2023-12-18 15:20 | disposition home or self-care (01) | LOC: OT 14:00 | PROVIDERS: PCP Nurse Practitioner Family; Visit Provider Student in an Organized Health Care Education/Training Program | DX: R47.9 Unspecified speech disturbances (principal); R41.841 Cognitive communication deficit; V29.99XD Rider (driver) (passenger) of other motorcycle injured in unspecified traffic accident, subsequent encounter | CPT/HCPCS: 97110; 97164; 97165; 97530 ==

== ENCOUNTER 2024-01-10 12:36 | Outpatient (CLI) | payer BC, SELFPAY ==
[2024-01-10 12:52] LABS: Basophils # 0.1 K/mm3 (0-0.2); Basophils % 0.7 % (0.1-2.0); Eosinophils # 0.3 K/mm3 (0.0-0.4); Eosinophils % 2.3 % (0.1-12.0); Hematocrit 43.9 % (42.0-52.0); Hemoglobin 14.5 g/dL (14.1-18.0); Lymphocytes # 2.7 K/mm3 (0.7-4.5); Mean Corpuscular Hemoglobin 30.7 pg (27.0-31.2); Mean Corpuscular Volume 92.8 fl (80-94); Mean Platelet Volume 6.9 fl (7.4-10.4); Monocytes # 1.1 K/mm3 (0.1-1.0); Platelet Count 363 K/mm3 (142-424); Red Blood Count 4.73 M/mm3 (4.60-6.20); Red Cell Distribution Width 14.8 % (11.5-17.5); White Blood Count 11.1 K/mm3 (4.8-10.8)
[2024-01-10 13:23] LABS: Erythrocyte Sedimentation Rate 14 mm/hr (0-15)
[2024-01-10 13:26] LABS: Alanine Aminotransferase 23 U/L (12-78); Albumin Level 4.3 g/dl (3.5-5.0); Albumin/Globulin Ratio 1.5 (1.1-1.8); Alkaline Phosphatase 81 U/L (38-126); Anion Gap 13.7 mEq/L (5-15); Aspartate Amino Transferase 25 U/L (17-59); Bilirubin,Total 0.3 mg/dl (0.2-1.3); Blood Urea Nitrogen 13 mg/dl (9-20); Calcium 9.7 mg/dl (8.4-10.2); Carbon Dioxide 25 mmol/L (22.0-30.0); Chloride 103 mmol/L (98-107); Estimated Glomerular Filt Rate 104 ml/min (>60); GFR (African American) 125 ML/MIN (>60); Globulin 2.9 g/dL (1.3-3.2); Glucose 102 mg/dl (74-100); Potassium 4.7 mmoL/L (3.5-5.1); Sodium 137 mmol/L (136-145); Total Protein,Serum 7.2 g/dl (6.3-8.2)
[2024-01-10 13:31] LABS: C-Reactive Protein 8.5 mg/L (0-4)
== END 2024-01-10 23:59 ==
LOC: LAB.DROPOF 12:37
PROVIDERS: PCP Nurse Practitioner Family; Visit Provider Nurse Practitioner Family
DX: M25.562 Pain in left knee (principal)
CPT/HCPCS: 80053; 85025; 85651; 86140

== ENCOUNTER 2024-02-06 08:05 | Outpatient (CLI) | payer BC, SELFPAY ==
--- NOTE | 2024-02-06 09:06 | CT_ITS ---
FINAL REPORT TECHNIQUE: Thin section axial CT images with coronal and sagittal reformats were performed. 3D images were obtained and reviewed. This study was performed with techniques to keep radiation doses as low as reasonably achievable (ALARA). Individualized dose reduction techniques using automated exposure control or adjustment of mA and/or kV according to the patient''s size were employed. CLINICAL HISTORY: pain left knee COMPARISON: 09/22/2020 FINDINGS: There is a sideplate and screws securing and lateral aspect of the proximal tibia. There is healed fracture deformity, particularly involving the medial tibial plateau. There is abnormal depression of the medial tibial plateau measuring 9 mm. Healed fracture line is seen extending to the joint margin. There are small intra-articular loose bodies within the joint space measuring up to 8 mm in greatest dimension. There are no masses or fluid collections. There are no soft tissue abnormalities. IMPRESSION: Healed fracture involving the medial tibial plateau with abnormal depression and fragmentation. Intra-articular loose bodies. Reviewed, Interpreted and Dictated by Dilan Hoang MD Transcribed by Nancy Jolly Authenticated and [facility]
== END 2024-02-06 23:59 | disposition home or self-care (01) ==
LOC: RAD 08:06
PROVIDERS: PCP Nurse Practitioner Family; Visit Provider Nurse Practitioner Family
DX: M25.562 Pain in left knee (principal); G89.29 Other chronic pain
CPT/HCPCS: 73700

== ENCOUNTER 2024-04-04 12:10 | Outpatient (CLI) | payer BC, SELFPAY ==
--- NOTE | 2024-04-04 12:13 | XR_ITS ---
FINAL REPORT CLINICAL HISTORY: 2nd toe pain FINDINGS: Three views show no evidence of acute displaced fracture or dislocation of the visualized bony architecture. The joint spaces appear normal. IMPRESSION: Unremarkable exam. Reviewed, Interpreted and Dictated by Inés Jordan MD Transcribed by Reema Weaver Authenticated and [facility]
== END 2024-04-04 23:59 | disposition home or self-care (01) ==
LOC: RAD 12:11
PROVIDERS: PCP Nurse Practitioner Family; Visit Provider Podiatrist
DX: M79.671 Pain in right foot (principal); M20.61 Acquired deformities of toe(s), unspecified, right foot
CPT/HCPCS: 73630

== ENCOUNTER 2024-04-07 12:58 | Outpatient (CLI) | payer BC, SELFPAY ==
--- NOTE | 2024-04-07 12:58 | ECG_ITS ---
APPROVED REPORT Exam: Resting ECG HR:67 bpm ECG Measurements Heart Rate 67 AXES WI 158 P 38 QRSd 92 QRS 26 QT 391 T 7 QTc 407 Conclusion SINUS RHYTHM NONSPECIFIC T-WAVE ABNORMALITY BORDERLINE ECG UNCONFIRMED REPORT Electronically signed by : Didier Ball MD 04/07/2024 17:18:49
--- NOTE | 2024-04-07 13:01 | XR_ITS ---
FINAL REPORT CLINICAL HISTORY: HTN COMPARISON: 06/04/2023 FINDINGS: No acute pulmonary density is evident. There is no evidence of effusion or other pleural disease. The mediastinum has a normal appearance. The cardiac silhouette is unremarkable. IMPRESSION: Unremarkable chest exam. Reviewed, Interpreted and Dictated by Inés Jordan MD Transcribed by Nancy Jolly Authenticated and [facility]
[2024-04-07 13:26] LABS: Basophils # 0.2 K/mm3 (0-0.2); Basophils % 1.3 % (0.1-2.0); Eosinophils # 0.3 K/mm3 (0.0-0.4); Eosinophils % 2.1 % (0.1-12.0); Hematocrit 44.8 % (42.0-52.0); Hemoglobin 14.7 g/dL (14.1-18.0); Lymphocytes % 22.1 % (10-50); Mean Corpuscular HGB Conc 32.8 g/dL (31.8-35.4); Mean Corpuscular Hemoglobin 31.1 pg (27.0-31.2); Mean Corpuscular Volume 94.9 fl (80-94); Mean Platelet Volume 7.8 fl (7.4-10.4); Monocytes # 1.3 K/mm3 (0.1-1.0); Monocytes % 9.3 % (1.7-9.3); Neutrophils # 8.9 K/mm3 (1.8-7.8); Neutrophils % 65.3 % (37.0-80.0); Platelet Count 309 K/mm3 (142-424); Red Blood Count 4.72 M/mm3 (4.60-6.20); White Blood Count 13.6 K/mm3 (4.8-10.8)
[2024-04-07 14:39] LABS: Alanine Aminotransferase 29 U/L (12-78); Albumin Level 4.4 g/dl (3.5-5.0); Albumin/Globulin Ratio 1.7 (1.1-1.8); Alkaline Phosphatase 73 U/L (38-126); Aspartate Amino Transferase 25 U/L (17-59); Bilirubin,Total 0.5 mg/dl (0.2-1.3); Blood Urea Nitrogen 11 mg/dl (9-20); Carbon Dioxide 28 mmol/L (22.0-30.0); Chloride 101 mmol/L (98-107); Estimated Glomerular Filt Rate 72 ml/min (>60); GFR (African American) 87 ML/MIN (>60); Globulin 2.6 g/dL (1.3-3.2); Glucose 99 mg/dl (74-100); Sodium 138 mmol/L (136-145)
[2024-04-07 14:47] LABS: C-Reactive Protein 1.2 mg/L (0-4)
[2024-04-07 15:11] LABS: Erythrocyte Sedimentation Rate 20 mm/hr (0-15)
[2024-06-06 10:03] LABS: Cotinine 158.2; Nicotine 9.9
== END 2024-04-07 23:59 | disposition home or self-care (01) ==
LOC: LAB 12:58
PROVIDERS: PCP Nurse Practitioner Family; Visit Provider Podiatrist
DX: Z01.818 Encounter for other preprocedural examination (principal); M20.61 Acquired deformities of toe(s), unspecified, right foot
CPT/HCPCS: 36415; 71046; 80053; 80323; 85025; 85651; 86140; 93005; G0480

== ENCOUNTER 2024-05-14 08:16 | Day surgery (SDC) | payer BC, SELFPAY ==
[2024-05-12 10:42] VITALS: BMI 31.7
[2024-05-14] VITALS (10 sets, daily range): BP systolic 133–165; BP diastolic 84–103; PULSE 16–90; RESP 16–18; TEMP 36.6–36.7; O2SAT 92–100
[2024-05-14] MEDS: LACTATED RINGERS 1000ML 1,000 ML 25 ML IV (09:10)
[2024-05-14 09:30] LABS: Basophils # 0.1 K/mm3 (0-0.2); Basophils % 0.6 % (0.1-2.0); Eosinophils # 0.2 K/mm3 (0.0-0.4); Eosinophils % 1.6 % (0.1-12.0); Hemoglobin 11.7 g/dL (14.1-18.0); Lymphocytes # 2.5 K/mm3 (0.7-4.5); Lymphocytes % 18.4 % (10-50); Mean Corpuscular HGB Conc 33.3 g/dL (31.8-35.4); Mean Corpuscular Hemoglobin 31.2 pg (27.0-31.2); Mean Corpuscular Volume 93.6 fl (80-94); Mean Platelet Volume 7.5 fl (7.4-10.4); Monocytes # 1.4 K/mm3 (0.1-1.0); Monocytes % 10.8 % (1.7-9.3); Neutrophils # 9.1 K/mm3 (1.8-7.8); Neutrophils % 68.6 % (37.0-80.0); Platelet Count 344 K/mm3 (142-424); Red Blood Count 3.74 M/mm3 (4.60-6.20); Red Cell Distribution Width 15.1 % (11.5-17.5); White Blood Count 13.3 K/mm3 (4.8-10.8)
--- NOTE | 2024-05-14 09:44 | XR_ITS ---
FINAL REPORT CLINICAL HISTORY: Right foot s/p 2nd toe amp COMPARISON: 04/04/2024 FINDINGS: RIGHT FOOT 3 views of the right foot were obtained. There has been resection of the second distal phalange with an overlying bandage present. There is no acute fracture or dislocation. Visualized joint spaces are normally aligned. Soft tissue edema is noted. IMPRESSION: Postoperative change and soft tissue edema. Reviewed, Interpreted and Dictated by Dilan Hoang MD Transcribed by Nancy Jolly Authenticated and [facility]
[2024-05-14] MEDS: CEFAZOLIN SODIUM 2 GM in 0.9 % SODIUM CHLORIDE 100 ML IV (09:58)
[2024-05-14] MEDS: BUPIVACAINE 0.5% 10ML VIAL 50 MG ×2 (10:07)
[2024-05-14] MEDS: GENTAMICIN 80 MG/2 ML VIAL (10:07)
--- NOTE | 2024-05-14 10:31 | P.OP_ITS ---
Date of procedure: 05/14/24 Pre-op Diagnosis:: Right second mallet toe Nail dystrophy Post-op Diagnosis:: Same Procedure performed:: Right partial 2nd toe amputation Nail debridement x9 Surgeon:: Melissa Campbell DPM HEEL SANDER RUBBER:: Ole Whittaker Anesthesia: GETA and local (20cc 0.5% marcaine plain) Estimated blood loss (mL): 5 Operative findings:: Right second toe elongated. Mallet toe noted to the distal second toe. No cortical changes, drainage or acute signs of infection noted. Toenails thickened dystrophic with subungual debris noted. Operative note:: On this date and time patient was deemed an appropriate surgical candidate. With informed consent signed, the patient was taken to the operating theater. The patient was positioned supine. LMA anesthesia was induced. No tourniquet used. Pre-op right second toe block given with 10 cc 0.5% marcaine plain. IV Ancef given. Nail debridement: Toenails x9 were debrided with nail nippers in standard fashion without complication. Bilateral hallux ingrown distal corners, slant back procedure performed removing corners. A full or partial nail avulsion not warranted. Right 2nd digit (partial) amputation: The right lower extremity was prepped and drapped in normal sterile fashion. A fish mouth incision was mapped out around the DIPJ. Utilizing a 15 blade dissection was carried down sharply to the level of the bone around the distal phalanx which was disarticulated from the medial phalanx. The distal phalanx bone was hard and had no malodor to it. Toe bone sent for bone culture and the soft tissue part was sent for pathology. Attention was then directed to the middle phalanx. The head was hard and intact, with no obvious discoloration or cortical erosions noted. Next gentamicin irrigation was used to flush the wound. The wound was reexplored and no signs of infection noted. Bleeding controlled. No vessels ligated with electrocautery or tied as there was minimal to no blood loss. 3-0 Prolene was used to close skin in an interrupted simple suture fashion. 10cc 0.5% marcaine plain given at end of case. The wounds were cleansed. Xeroform, betadine soaked gauze, dry sterile dressing was applied to the foot. Patient was awoken from anesthesia and transferred to recovery with vital signs stable and neurovascular status intact. Patient appeared to tolerate procedure and anesthesia well without complication. Discharge/Plan: Patient is to maintain dressing clean dry and intact. Partial weight bearing to the right lower extremity in short fracture boot with walker. Postop oral antibiotics Bactrim x 5 days. Obtain post op films, right foot, 3 views. Follow up in one week for dressing change. Condition: stable Disposition: same day Specimens:: Right 2nd toe path Right 2nd distal toe bone culture Complications:: None
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
--- NOTE | 2024-05-14 10:47 | P.PNANES_ITS ---
[facility] Anesthesia Record Part I Anesthesia Record I Intake, IV Amount: 500 Hydration: Adequate Estimated blood loss (mL): 2 Urine output (mL): 0 Blood Products used (#): none Blood Pressure: 155/99 SaO2: 94 Pulse Rate: 16 Airway Patency: Patent Respiratory Rate: 16 Temperature: 98 F Patient is:: Drowsy and Stable Stable to PACU at:: 10:37
--- NOTE | 2024-05-14 11:30 | P.PNANES_ITS ---
[facility] Anesthesia Record Part II Anesthesia Record Part II Discharge Time: 11:07 Destination: Surgical Day Care (OP Surgery) PACU nurse assessment reviewed?: Yes Patient Condition:: Good Anesthesia Complications:: None Swallowing reflex intact?: Yes Airway Patency: Patent Cyanosis?: No Blood Pressure: 148/97 SaO2: 92 Respiratory Rate: 18 Pulse Rate: 88 Temperature: 98 F Mental Status: Alert & Oriented Pain level:: 0 Nausea and/or vomitting:: None Intake, IV Amount: 0 Hydration: Adequate
== END 2024-05-14 11:47 | disposition home or self-care (01) ==
PROVIDERS: PCP Nurse Practitioner Family; Visit Provider Podiatrist
PROC: (CPT 28124; principal; 2024-05-14 09:45)
DX: M20.5X1 Other deformities of toe(s) (acquired), right foot (principal); L60.3 Nail dystrophy; I10 Essential (primary) hypertension; Z79.899 Other long term (current) drug therapy; F17.210 Nicotine dependence, cigarettes, uncomplicated
CPT/HCPCS: 28124; 11721; 36415; 73630; 85025; 87077; 87186; 88304; 96374; J0690; J1100; J1580; J2250; J2405; J3010; J7120

== ENCOUNTER 2024-07-10 15:04 | Outpatient (CLI) | payer BC, SELFPAY ==
--- NOTE | 2024-07-10 15:10 | XR_ITS ---
FINAL REPORT CLINICAL HISTORY: right elbow pain due to a fall FINDINGS: 2 views of the right elbow were obtained. There are postoperative changes of partial arthroplasty with the radial head prosthesis. There are post-ORIF changes of the proximal ulna with healed fracture. There is no acute fracture or dislocation. The joint spaces are intact. The soft tissues are unremarkable. IMPRESSION: No acute fracture. Reviewed, Interpreted and Dictated by Inés Jordan MD Transcribed by Jennifer Vargas Authenticated and [facility]
== END 2024-07-10 23:59 | disposition home or self-care (01) ==
LOC: RAD 15:06
PROVIDERS: PCP Nurse Practitioner Family; Visit Provider Nurse Practitioner Family
DX: M25.521 Pain in right elbow (principal)
CPT/HCPCS: 73070

== ENCOUNTER 2024-08-14 13:58 | Outpatient (CLI) | payer BC, SELFPAY ==
--- NOTE | 2024-08-14 14:02 | XR_ITS ---
PROCEDURE INFORMATION: Exam: XR Right Hip Exam date and time: 08/14/2024 2:08 PM Age: 48 years old Clinical indication: Hip pain; Right hip; Additional info: Right hip pain, fall TECHNIQUE: Imaging protocol: Radiologic exam of the right hip. Views: 2 or 3 views hip with pelvis when performed. COMPARISON: CR XR PELVIS 1-2V 06/03/2023 10:47 PM FINDINGS: Bones/joints: No acute fracture. No dislocation. Soft tissues: Unremarkable. IMPRESSION: No fracture. If hip pain persists, consider MRI to exclude occult fracture/internal derangement.
== END 2024-08-14 23:59 | disposition home or self-care (01) ==
LOC: RAD 13:59
PROVIDERS: PCP Nurse Practitioner Family; Visit Provider Nurse Practitioner Family
DX: M25.551 Pain in right hip (principal); W19.XXXA Unspecified fall, initial encounter
CPT/HCPCS: 73502

== ENCOUNTER 2024-08-29 13:47 | Outpatient (CLI) | payer BC, SELFPAY ==
--- NOTE | 2024-08-29 13:47 | MR_ITS ---
FINAL REPORT CLINICAL HISTORY: fall x1 month ago, frequent falls COMPARISON: None FINDINGS: Multiplanar MR imaging of the right hip was performed without contrast. There is no evidence of fracture or dislocation. There is no evidence of avascular necrosis. No bony mass is identified. No labral tear is identified. No significant joint effusion is seen. The abductor tendons are intact. The musculature is intact. There is a small amount of fluid overlying the greater trochanter, that may be secondary to a soft tissue contusion. IMPRESSION: There is a small amount of fluid overlying the greater trochanter, that may be secondary to a soft tissue contusion. Reviewed, Interpreted and Dictated by Dilan Hoang MD Transcribed by Radha Sharpe Authenticated and [facility]
== END 2024-08-29 23:59 | disposition home or self-care (01) ==
LOC: RAD 13:47
PROVIDERS: PCP Nurse Practitioner Family; Visit Provider Nurse Practitioner Family
DX: M25.551 Pain in right hip (principal)
CPT/HCPCS: 73721

== ENCOUNTER 2024-10-27 14:14 | Outpatient (CLI) | payer OTHER, SELFPAY ==
[2024-10-27 15:36] LABS: Blood Urea Nitrogen 13 mg/dl (9-20); Calcium 9.4 mg/dl (8.4-10.2); Carbon Dioxide 25 mmol/L (22.0-30.0); Chloride 100 mmol/L (98-107); Estimated Glomerular Filt Rate 90 ml/min (>60); GFR (African American) 109 ML/MIN (>60); Glucose 94 mg/dl (74-100); Phosphorous 4.1 mg/dl (2.5-4.5); Sodium 134 mmol/L (136-145)
[2024-10-27 15:38] LABS: Anion Gap 13.3 mEq/L (5-15); Magnesium 1.7 mg/dl (1.6-2.3); Potassium 4.3 mmoL/L (3.5-5.1)
[2024-10-27 16:15] LABS: HIV Combo NEGATIVE (Negative)
[2024-10-27 16:22] LABS: Hepatitis C Ab Qual. W/ RFX NEGATIVE (Negative)
== END 2024-10-27 23:59 | disposition home or self-care (01) ==
LOC: LAB 14:15
PROVIDERS: PCP Nurse Practitioner Family; Visit Provider Nurse Practitioner Family
DX: M79.89 Other specified soft tissue disorders (principal); Z11.59 Encounter for screening for other viral diseases; Z11.4 Encounter for screening for human immunodeficiency virus [HIV]
CPT/HCPCS: 36415; 80048; 83735; 84100; 86803; 87389

== ENCOUNTER 2025-02-02 13:51 | Outpatient (RCR) | payer OTHER, SELFPAY | END 2025-02-02 23:59 | disposition home or self-care (01) | LOC: PT 13:51 | PROVIDERS: PCP Nurse Practitioner Family; Visit Provider Physician Assistant | DX: T84.84XA Pain due to internal orthopedic prosthetic devices, implants and grafts, initial encounter (principal) | CPT/HCPCS: 97163 ==

== ENCOUNTER 2025-02-02 13:56 | Outpatient (RCR) | payer OTHER, SELFPAY ==
--- NOTE | 2025-02-02 18:01 | HMH.SLAPHASI ---
Speech & Language Evaluation Speech/Language Aphasia Evaluation Start: 02/02/25 17:26 Freq: once Status: Complete Protocol: Document 02/02/25 17:26 [facility] (Rec: 02/02/25 18:00 [facility] laptop) Aphasia Assessment/Goals/Plan Assessment Date of Evaluation: 02/02/25 Evaluation Type Initial Certification Assessment/Problems stroke per MD order Does Patient Qualify for Service Yes Qualify/Failure Comment Based on results of standardized assessment and pt /caregiver history, Mr. Piper would benefit from skilled speech therapy services 2x/ week for 12 weeks to address severe language/motor speech impairments and improve intelligibility and expressive /receptive language skills in multiple environments. Plan Pt will be seen # times/week 2 for # weeks 12 Anticipate reaching STG in # weeks 8 Anticipate reaching LTG in # weeks 12 Pt/Guardian verbally ack understanding Yes of dx/prognosis/goals G -code Required No STG-Auditory Comprehension Word Level 70 1st Element 70 STG-Reading Comprehension Pointing to Letters by Name 70 STG-Verbal Expressive Language Repetitive Abilities 70 Word Naming 70 STG-Attending/Orientation/Memory Orientation 70 STG-Intell/Buccal/Labial Strength Intelligibility 60 Master Dyer Goals Increase oral motor tone to improve Yes: 60 intelligibility. Increase auditory comprehension skills Yes: 70 to communicate w/family & friends Increase verbal expression skills to Yes: 70 communicate w/family & friends. Education Instructions provided AERIAL TRAM OPERATOR discussed results of standardized assessment and POC with pt and mother, each of which expressed understanding. Pt/Caregiver Able to Recall Information Able to recall/restate Reinforcement needed No Speech & Language HPI History Present Illness Description of Patient Problem Mr. Piper is a pleasant 49 year old male presenting to [facility] Outpatient Rehab Services for a skilled speech therapy evaluation. He was accompanied by his mother who waited in the lobby. Mr. Piper's PMHx includes stroke and TBI, each of which requiring hospitalization. Mr. Piper is also deaf in his right ear. He requires assistance with money management, cooking, transportation, time management, and making phone calls. His goal for speech therapy is to speak better . During standardized assessment , Mr. Piper scored in the severe range for word comprehension, sentence comprehension, word finding, grammatical construction, speech motor programming, and reading. He scored in the moderate range for repetition. Overall, Mr. Piper scored in the severe range and would benefit from further skilled speech therapy services. Pt/Caregiver Concerns Speech intelligibility Rehab Services Assessed Speech therapy Hearing Previous Hearing Test Yes Hearing Ability Deaf Comment Deaf in right ear Vision Visual Difficulty Adequate Language Primary Language Pashto Therapy History Seen by other SL therapists Yes Who/When/Recommendations Seen for skilled speech therapy services 3 years ago at [facility] Outpatient Rehab Services Other Specialists? Yes Who/When/Recommendations Seen for PT and OT three years ago Aphasia Evaluations Communication Speech Intelligibility Mr. Piper's speech was primarily unintelligible. He spoke utilizing 1-3 word utterances and demonstrated some apraxic and dysarthric errors. Auditory Comprehension No: Word Level Sentences Following Directions Paragraph Conversation AC Comment Mr. Piper exhibited difficulty matching spoken words to pictures, answering Y /N sentences, and following some multi-step direction throughout assessment. Mr. Piper exhibited difficulty understanding some parts of conversation during evaluation . Reading Comprehension No: Word Naming Sentences RC Comment Mr. Piper was able to read one three-letter word during evaluation. He was u/a to read other words or sentences presented to him and would often produce unintelligible speech when attempting to read or state I don't know . Verbal Expressive Language Yes: Automatic Speech No: Repetition Abilities Word Level Naming Sentence Level SEJAL Comment Mr. Piper was able to count to 10 independently during assessment. He struggled to repeat 5 syllable words and sentences after clinician model. He struggled to name pictures, and exhibited difficulties in sentence construction. WL Comment Not assessed Attending/Orientation/Memory No: Orientation Memory AOM Comment Mr. Piper was u/a to answer any orientation questions independently, and asked clinician to repeat the question often. He was u/a to remember sentence stimuli and had difficulty repeating sentences back to clinician. CLS Comment No assessed CT Comment Not assessed DT Comment Not assessed DR Comment Not assessed IR Comment Not assessed Additional Evaluation(s) Additional Tests The Quick Aphasia Battery (QAB ) is administered to evaluate the presence, severity, and profile of language impairments following neurological injury or illness , such as stroke, traumatic brain injury, or other central nervous system disorders. The QAB provides a brief yet comprehensive assessment of byrnes language domains including speech fluency, comprehension , repetition, naming, reading, and motor speech, which are critical for identifying and classifying aphasia syndromes. The results assist in diagnosis, guide treatment planning, and support interdisciplinary care decisions. Mr. Piper's results are as follows: Word comprehension: 0.42 severe sentence comprehension: 0.00 severe word findin.00 severe grammatical construction: 0.38 severe speech motor programmin.00 severe repetition: 7.08 moderate readin.67 severe QAB overall: 1.13 severe PHYSICIAN CERTIFICATION: I certify the specified therapy services for Adrian Piper are required, authorized, and reviewed every 30 days.
== END 2025-02-02 23:59 | disposition home or self-care (01) ==
LOC: ST 13:56
PROVIDERS: PCP Nurse Practitioner Family; Visit Provider Nurse Practitioner Family
DX: I63.9 Cerebral infarction, unspecified (principal)
CPT/HCPCS: 92523

== ENCOUNTER 2025-03-10 13:00 | Outpatient (RCR) | payer OTHER, SELFPAY | END 2025-03-10 23:59 | disposition home or self-care (01) | LOC: ST 13:00 | PROVIDERS: PCP Nurse Practitioner Family; Visit Provider Nurse Practitioner Family | DX: I63.9 Cerebral infarction, unspecified (principal) | CPT/HCPCS: 92507; 97129; 97130 ==

== ENCOUNTER 2025-03-10 14:00 | Outpatient (RCR) | payer OTHER, SELFPAY | END 2025-03-10 23:59 | disposition home or self-care (01) | LOC: PT 14:00 | PROVIDERS: PCP Nurse Practitioner Family; Visit Provider Physician Assistant | DX: T84.84XA Pain due to internal orthopedic prosthetic devices, implants and grafts, initial encounter (principal) | CPT/HCPCS: 97110; 97164; 97530 ==

== ENCOUNTER 2025-03-20 10:00 | Outpatient (RCR) | payer OTHER, SELFPAY | END 2025-03-20 23:59 | disposition home or self-care (01) | LOC: ST 10:00 | PROVIDERS: PCP Nurse Practitioner Family; Visit Provider Nurse Practitioner Family | DX: I63.9 Cerebral infarction, unspecified (principal) | CPT/HCPCS: 92507 ==

== ENCOUNTER 2025-09-14 15:08 | Outpatient (CLI) | payer OTHER, SELFPAY ==
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
--- OUTSIDE RECORDS SUMMARY | 2025-09-14 15:12 | XMS_ITS | Encounter Summary ---
Author Organization [facility] Address [address] [place] [address] Care Team Providers Care Insulation Packer Name Role Phone Sudha Saha PA Unavailable Krissy De Los Santos APRN Primary Care Provider [phone] Encounter Details Date Type Department Care Team (Late st Contact Info) Description 09/01/2025 Telephone [facility] Audiology [address] [place] [address] Rivera Blankenship `````````````````````CH - PACU - MAJOR, PAV A Social History Tobacco Use Types Packs/Day Years [...] answer 12/16/2024 How often do you attend chur ch or caodaism services? Patient unable to answer 12/16/2024 Do you belong to any clubs o r organizations such as scientologist groups, unions, fraternal or athletic groups, or [...] Recorded Patient Health Questionnaire-2 Score 0 12/02/2024 [facility] - Occupational Stress Questionnaire Answer Date [...] place to sleep or slept in a skilled nursing (including now)? No 08/10/2023 PHQ-9 Answer Date [...] any time in the past 12 m [facility], were you homeless or living in a skilled nursing (including now)? Patient unable to answer 12/16/2024 [...] drink first t karina in the morning (EYE-CHICKEN DRESSER) to steady your nerves or to get [...] on file documented as of this encounter Plan of Treatment Upcoming Encounters Date Type Department Care Team (Late st Contact Info) Description 10/01/2025 9:00 AM EST Office Visit [facility] Audiology [address] [place] [address] Candida Hathaway, AuD [address] [place] [address] 02/08/2026 10:50 AM EDT Consult [facility] Urology [address] [place] [address] Sheeba Barrett, MACHINE CONTAINER WASHER, DNP [address] [place] [address] 03/01/2026 1:30 PM EDT Office Visit [facility] [address] [place] [address] Didier Higgins MD [address] [place] [address] 03/21/2026 Hospital Encounter PAV A OPERATING ROOM [address] [place] [address] Oscar Amador, DDS [address] [place] [address] Scheduled Procedures Name Priority Associated Diagnoses Date/Ti me ALVEOLOPLASTY, SIMPLE, WITH TOOTH EXTRACTION Exostosis documented as of this encounter Goals Goal Patient Goal Type Associated Problems Recent Progress Patient-Stated? Author Autogenerat ed Goal Care Plan Autogenerated Problem No Rosanne Winchester documented as of this encounter Visit Diagnoses Not on filedocumented in this encounter Additional Health Concerns Active [...] documented as of this encounter Care Teams Insulation Packer Relationship Specialty Start Date End Date Krissy De Los Santos APRN [address] [place] [address] PCP - General 07/10/23 Sudha Saha PA [address] [place] [address] Physician Wood Type Cutter Neurosurgery 11/06/22 documented as of this encounter
--- OUTSIDE RECORDS SUMMARY | 2025-09-14 15:12 | XMS_ITS | Encounter Summary ---
Author Organization [facility] Address [address] [place] [address] Care Team Providers Care Shuttle Inspector Name Role Phone Sudha Saha PA Unavailable [phone] Krissy De Los Santos APRN Primary Care Provider [phone] Encounter Details Date Type Department Care Team (Late st Contact Info) Description 07/22/2024 Orders Only External Location [address] [place] [address] Provider, External Social History Tobacco Use Types Packs/Day Years Used Date Smoking Tobacco: Every Day Cigarettes 0.5 26.5 Started: 03/03/1999 Smokeless Tobacco: Never Alcohol Use Standard Drinks/Week Comments No 0 (1 standard drink = 0.6 oz pur e alcohol) Humiliation, Afraid, Rape, and Kick questionnair e Answer Date Recorded Within the last year, have y ou been afraid of your partner or ex-partner? No 08/10/2023 Within the last year, have y ou been humiliated or emotionally abused in other ways by your partner or ex-partner? No Within the last year, have y ou been kicked, hit, slapped, or otherwise physically hurt by your partner or ex-partner? No 08/10/2023 Within the last year, have y ou been raped or forced to have any kind of sexual activity by your partner or ex-partner? No 08/10/2023 Overall Financial Resource Strain (CARDIA) Answe r Date Recorded How hard is it for you to pa y for the very basics like food, housing, medical care, and heating? Not very hard 08/10/2023 PHQ-2 Answer Date Recorded Patient Health Questionnaire-2 Score 0 02/27/2024 Hunger Vital Sign Answer Date Recorded Within the past 12 months, y ou worried that your food would run out before you got the money to buy more. Never true 08/10/20 Within the past 12 months, t he food you bought just didn't last and you didn't have money to get more. Never true 08/10/2023 PRAPARE - Transportation Answer Date Re corded In the past 12 months, has l ack of transportation kept you from medical appointments or from getting medications? No 07/16 In the past 12 months, has l ack of transportation kept you from meetings, work, or from getting things needed for daily living? No 08/10/2023 Housing Stability Vital Sign Answer Davon e [...] place to sleep or slept in a alf (including now)? No 08/10/2023 Utilities Answer Date Recorded In the past 12 months has th e electric, gas, oil, or water company threatened to shut off services in your home? No 08/10/2023 PHQ-2A Answer Date Recorded Patient Health Questionnaire-2 [...] Description 10/01/2025 9:00 AM EST Office Visit [facility] Audiology [address] [place] [address] Candida Hathaway, AuD [address] [place] [address] 02/08/2026 10:50 AM EDT Consult [facility] Urology [address] [place] [address] Sheeba Barrett, HASHER OPERATOR, DNP [address] [place] [address] 03/01/2026 1:30 PM EDT Office Visit Physical Medicine & Rehabilitation Clinic at [facility] [address] [place] [address] Didier Higgins MD [address] [place] [address] 03/21/2026 Hospital Encounter PAV A OPERATING ROOM [address] [place] [phone] Oscar Amador, DDS [address] [place] [address] Scheduled Procedures Name Priority Associated Diagnoses Date/Ti me ALVEOLOPLASTY, SIMPLE, WITH TOOTH EXTRACTION Exostosis documented as of this encounter Procedures Procedure Name Priority Date/Time Associated Diagnosis Comments CT NEURO OUTSIDE IMAGES 07/22/2024 8:15 PM EDT documented in this encounter Results * CT NEURO OUTSIDE IMAGES (07/22/2024 8:15 PM EDT) Anatomical Region Laterality Modality Computed Tomogra phy 07/22/2024 8:15 PM EDT us External Provider IMG CT PROCEDURES Final Result documented in this encounter Visit Diagnoses Not on filedocumented in this encounter Additional Health Concerns Infection Onset Date Last Indicated Resolved Time 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 Do not resolve this infection. Lillian Robb RN IPAC 08/08/2020 03/08/2021 COVID-19 Rule-Out 11/15/2024 11/15/2024 11/15/2024 8:45 PM EST MRSA 11/15/2024 11/15/2024 Meningitis Rule-Out 11/17/2024 11/17/2024 11/17/19 25 1:12 PM EST Assessment Noted Time A fall risk assessment has been complete d for the patient 05/29/2024 10:02 AM EDT A Body Mass Index follow-up plan has been documented for the patient 05/29/2024 12:48 PM EDT documented as of this encounter Care Teams Shuttle Inspector Relationship Specialty Start Date End Date Krissy De Los Santos APRN [address] [place] [address] PCP - General 07/10/23 Sudha Saha PA [address] [facility] [address] [place] [address] Physician Form Worker Neurosurgery 11/06/22 documented as of this encounter
--- OUTSIDE RECORDS SUMMARY | 2025-09-14 15:12 | XMS_ITS | Encounter Summary ---
Author Organization Healthcare Address [address] [place] [address] Care Team Providers Care Activities Aide Name Role Phone Sudha Saha PA Unavailable [phone] Krissy De Los Santos APRN Primary Care Provider [phone] Encounter Details Date Type Department Care Team (Late st Contact Info) Description 09/01/2025 Telephone [facility] Audiology [address], [address] [place] [address] Rivera Blankenship `````````````````````CH - PACU [...] often do you attend chur ch or mu-ism services? Patient unable to answer 12/16/2024 Do [...] 0 12/02/2024 [facility] of Occupat ional [facility] - Occupational Stress Questionnaire Answer Date Recorded [...] place to sleep or slept in a long term (including now)? No 08/10/2023 PHQ-9 Answer Date [...] any time in the past 12 m [facility], were you homeless or living in a long term (including now)? Patient unable to answer 12/16/2024 [...] drink first t karina in the morning (EYE-SOIL BIOLOGY TEACHER) to steady your nerves or to [...] Description 10/01/2025 9:00 AM EST Office Visit [facility] Audiology [address] [place] [address] Candida Hathaway, AuD [address] [place] [address] 02/08/2026 10:50 AM EDT Consult [facility] Urology [address] [place] [address] Sheeba Barrett, NEW BUSINESS CLERK, DNP [address] [place] [address] 03/01/2026 1:30 PM EDT Office Visit [facility] [address] [place] [address] Didier Higgins MD [address] [place] [address] 03/21/2026 Hospital Encounter [facility]PERATING ROOM [address] [place] [address] Oscar Amador, DDS [address] [place] [address] Scheduled Procedures Name Priority Associated [...] documented as of this encounter Care Teams Activities Aide Relationship Specialty Start Date End Date Krissy De Los Santos APRN [address] [place] [address] PCP - General 07/10/23 Sudha Saha PA [address] [place] [address] Physician Biofuels Engineering Manager Neurosurgery 11/06/22 documented as of this encounter
--- OUTSIDE RECORDS SUMMARY | 2025-09-14 15:12 | XMS_ITS | Encounter Summary ---
Author Organization [facility] Address [address] [place] [address] Care Team Providers Care Tumbler Plater Name Role Phone Sudha Saha PA Unavailable [phone] Krissy De Los Santos APRN Primary Care Provider [phone] Encounter Details Date Type Department Care Team (Latest Contact Info) Description 07/21/2025 Travel Social History Tobacco Use Types Packs/Day Years [...] answer 12/16/2024 How often do you attend [facility] or denominational services? Patient unable to answer 12/16/2024 Do you belong to any clubs o r organizations such as religion groups, unions, fraternal or athletic groups, or [...] Recorded Patient Health Questionnaire-2 Score 0 12/02/2024 [facility] of Occupat ional [facility] - Occupational Stress Questionnaire Answer Date [...] place to sleep or slept in a longterm (including now)? No 08/10/2023 PHQ-9 Answer Date [...] any time in the past 12 m [facility], were you homeless or living in a longterm (including now)? Patient unable to answer 12/16/2024 [...] drink first t karina in the morning (EYE-HCC CODERS) to steady your nerves or to get rid of a hangover? 0 11/16/2024 CAGE Questionnaire Score 0 02/02/2 025 Utilities Answer Date Recorded In the past 12 months has e electric, gas, oil, or water company [...] Description 10/01/2025 9:00 AM EST Office Visit [facility] Audiology [address], [address] [place] [address] Candida Hathaway, AuD [address] [place] [address] 02/08/2026 10:[address] [facility] Urology [address], [address] [place] [address] Sheeba Barrett, SLAB LIFTING ENGINEER, DNP [address] [place] [address] 03/01/2026 1:30 PM EDT Office Visit [facility] [address] [place] [address] Didier Higgins MD [address] [facility] [address] [place] [address] 03/21/2026 Hospital Encounter [facility] A OPERATING ROOM [address] [place] [id number] Oscar Amador, DDS [address] [place] [address] Scheduled Procedures Name Priority Associated Diagnoses Date/Ti [...] documented as of this encounter Care Teams Tumbler Plater Relationship Specialty Start Date End Date Krissy De Los Santos, SLAB LIFTING ENGINEER [address] [place] [address] PCP - General 07/10/23 Sudha Saha PA [address] [place] [address] Physician Counselor Manager Neurosurgery 11/06/22 documented as of this encounter
--- OUTSIDE RECORDS SUMMARY | 2025-09-14 15:12 | XMS_ITS | Encounter Summary ---
Author Organization [facility] Address [address] [place] [address] Care Team Providers Care Lens Coater Name Role Phone Sudha Saha PA Unavailable [phone] Krissy De Los Santos APRN Primary Care Provider [phone] Encounter Details Date Type Department Care Team (Latest Contact Info) Description 09/07/2025 Travel Social History Tobacco Use Types Packs/Day [...] answer 12/16/2024 [facility] services? Patient unable to answer 12/16/2024 Do you belong to any clubs o r organizations such as jew groups, unions, fraternal or athletic groups, or [...] Recorded Patient Health Questionnaire-2 Score 0 12/02/2024 [facility] of Occupat ional [facility] - Occupational Stress Questionnaire Answer [...] place to sleep or slept in a mcfp (including now)? No 08/10/2023 PHQ-9 Answer Date [...] any time in the past 12 m [facility], were you homeless or living in a mcfp (including now)? Patient unable to answer 12/16/2024 [...] drink first t karina in the morning (EYE-VOICE OVER ARTIST) to steady your nerves or to get [...] Description 10/01/2025 9:00 AM EST Office Visit [facility] Audiology [address], [address]rd [place] [address] Candida Hathaway, AuD [address] [place] [address] 02/08/2026 10:50 AM EDT Consult [facility] Urology [address] [place] [address] Sheeba Barrett, HYDRAULIC PRESS TENDER, DNP [address] [place] [address] 03/01/2026 1:30 PM EDT Office Visit [facility] [address] [place] [address] Didier Higgins MD [address] [facility] [address] [place] [address] 03/21/2026 Hospital Encounter [facility] OPERATING ROOM [address] [place] [id number] Oscar Amador, DDS [address] [place] [address] Scheduled Procedures Name Priority Associated Diagnoses Date/Ti [...] documented as of this encounter Care Teams Lens Coater Relationship Specialty Start Date End Date Krissy De Los Santos, HYDRAULIC PRESS TENDER [address] [place] [address] PCP - General 07/10/23 Sudha Saha PA [address] [facility] [address] [place] [address] Physician Dorr Operator Neurosurgery 11/06/22 documented as of this encounter
--- OUTSIDE RECORDS SUMMARY | 2025-09-14 15:12 | XMS_ITS | Encounter Summary ---
Author Organization Healthcare Address [address] [place] [address] Care Team Providers Care Fire Apparatus Engineer Name Role Phone Sudha Saha PA Unavailable [phone] Krissy De Los Santos APRN Primary Care Provider [phone] Encounter Details Date Type Department Care Team (Late st Contact Info) Description 07/22/2024 Orders Only External Location [address] [place] [address] Provider, External Social History Tobacco Use Types [...] place to sleep or slept in a intermediate (including now)? No 08/10/2023 Utilities Answer Date [...] Description 10/01/2025 9:00 AM EST Office Visit [facility] Audiology [address] [place] [address] Candida Hathaway, AuD [address] [place] [address] 02/08/2026 10:50 AM EDT Consult [facility] Urology [address] [place] [address] Sheeba Barrett, SMALL ENGINE SPECIALIST, DNP [address] [place] [address] 03/01/2026 1:30 PM EDT Office Visit [facility] at [facility] [address] [place] [address] Didier Higgins MD [address] [place] [address] 03/21/2026 Hospital Encounter [facility] A OPERATING ROOM [address] [place] [phone] Oscar Amador, DDS [address] [place] [address] Scheduled Procedures Name Priority Associated Diagnoses Date/Ti me ALVEOLOPLASTY, SIMPLE, WITH TOOTH EXTRACTION Exostosis documented as of this encounter Procedures Procedure Name Priority Date/Time Associated Diagnosis Comments CT NEURO OUTSIDE IMAGES 07/22/2024 8:18 PM EDT documented in this encounter Results * CT NEURO OUTSIDE IMAGES (07/22/2024 8:18 PM EDT) Anatomical Region Laterality Modality Computed Tomogra phy 07/22/2024 8:18 PM EDT us External Provider IMG CT [...] documented as of this encounter Care Teams Fire Apparatus Engineer Relationship Specialty Start Date End Date Krissy De Los Santos APRN [address] [place] [address] PCP - General 07/10/23 Sudha Saha PA [address] [facility] [address] [place] [address] Physician Handbag Framer Neurosurgery 11/06/22 documented as of this encounter
--- OUTSIDE RECORDS SUMMARY | 2025-09-14 15:12 | XMS_ITS | Clinical Summary ---
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 background ofmarked global parenchymal volume loss. Ezio Lay MD This report has been electronically signed and verified by the Radiologistwhose name is printed above. This report contains privileged and confidential information and isintended solely for the use of the individual or entity to which it isaddressed. If you are not the intended recipient of this report, you arehereby notified that any copying, distribution, dissemination or actiontaken in relation to the contents of this report is strictly prohibitedand may be unlawful. If you have received this report in error, pleasenotify the sender immediately at [phone] and permanently delete theoriginal report and destroy any copies or printouts. us Jorge Mckeon MD IMG CT PROCEDURES Final Result * MR IAC w and wo IV Contrast (06/17/2025 10:29 AM EDT) Anatomical Region Laterality Modality Head Magnetic Resonan ce Impressions 06/17/2025 4:31 PM EDT Brain MR with and without contrast: Global [...] labyrinthitis/calcification in the right lateral semicircular canal redemonstrated. Cochlea and cochlear nerve still appear intact. [...] error, please notify the sender immediately at [phone] and permanently delete the original report and destroy any copies or printouts. Narrative 06/17/2025 4:31 PM EDT [facility] - Phone Outpatient NAME: Adrian Piper DATE OF EXAM: 06/17/2025 Patient No: [id number] Physician: Mike^Jorge^Ad Date of : 1975 Examination: Brain MR with and without contrast IAC protocol MR with and without contrast Symptoms/Reason For Exam (entered by technologist): Sensorineural hearing loss prepositions cochlear implant History of comminuted right temporal bone fracture with previous canal wall down mastoidectomy and right temporal craniotomy. Open fracture of temporal bone with routine healing, subsequent encounter; Sensorineural hearing loss, unilateral, right ear, with restricted hearing on the contralateral side Technique: Multiplanar multisequence MR imaging of the brain and internal auditory canals was performed with and without IV contrast material. Contrast Agent and Dose: 9.8 cc Gadavist given intravenously. Comparison: Temporal bone CT without contrast from same date. Previous temporal bone CT study dated 07/10/20. FINDINGS: Brain MR with and without contrast: On the diffusion-weighted images, no acute or subacute infarct. Extensive area of encephalomalacia present across the posterior portion of the left cerebral hemisphere involving the left parietal, occipital, and temporal regions. Background of marked global parenchymal volume loss, accelerated for patient age. This includes white matter volume loss with ex vacuo dilatation of the lateral ventricles. Areas of encephalomalacia also present in the structures of the posterior cranial fossa including the cerebellum and vermis, right more extensive than left. Volume loss and portions of the brainstem. Resultant ex vacuo dilatation of the fourth ventricle. Moderate white matter T2/flair hyperintense signal abnormalities compatible with underlying gliosis. Some of this may be due to small vessel ischemic type findings while others may be sequelae of previous traumatic brain injury for example. Prior surgical tract through the right frontal lobe. Progress previous right-sided temporal craniotomy with residual fluid and debris under the craniotomy flap about a centimeters in maximal thickness. Patent basal cisterns. The expected major arterial intracranial flow voids are identified at the skull base level. On the heme sensitive images, extensive hemosiderin staining through the regions of encephalomalacia previously discussed in the left cerebral hemisphere. Additional hemosiderin staining along the surgical tract through the right frontal region. Scattered hemosiderin staining within some of the sulci along the left frontal lobe. Some dural thickening and enhancement under the craniotomy flap. Minimal smooth dural thickening and enhancement elsewhere over the right and left cerebral hemispheres as well. No nodularity. No suspicious site of enhancement within the brain parenchyma itself. Corpus callosum unremarkable. Pituitary gland unremarkable. Craniocervical junction otherwise unremarkable. No acute sinusitis. Orbits symmetric. IAC protocol MR with and without contrast: Previous canal wall down mastoidectomy on the right with fluid redemonstrated and what remains of the right mastoid air cell region. Closure of the right external auditory canal area. 7 8th cranial nerves identified on the right and left. Loss of fluid signal intensity along the lateral semicircular canal on the right consistent with a documented calcification/mineralization in that area on the previous obtained temporal bone CT from the same date. Fluid signal intensity remains in the right posterior and superior semicircular canal areas. Cochlear nerve still appears to be present. Cochlea itself appears unremarkable. Left inner ear structures unremarkable. Areas of dehiscence along the tegmen mastoideum region on the right are better demonstrated on the previous temporal bone CT study from the same date. Procedure Note Ezio Lay MD - 06/17/2025 [facility] - Phone Outpatient NAME: Feliz Adrian Darrick DATE OF EXAM: 06/17/2025 Patient No: [id number] Physician: Mike^Jorge^Ad Date of : 1975 Examination: Brain MR with and without contrast IAC protocol MR with and without contrast Symptoms/Reason For Exam (entered by technologist): Sensorineural hearingloss prepositions cochlear implant History of comminuted right temporal bone fracture with previous canalwall down mastoidectomy and right temporal craniotomy. Open fracture of temporal bone with routine healing, subsequent encounter;Sensorineural hearing loss, unilateral, right ear, with restricted hearingon the contralateral side Technique: Multiplanar multisequence MR imaging of the brain and internalauditory canals was performed with and without IV contrast material. Contrast Agent and Dose: 9.8 cc Gadavist given intravenously. Comparison: Temporal bone CT without contrast from same date. Previoustemporal bone CT study dated 07/10/20. FINDINGS: Brain MR with and without contrast: On the diffusion-weighted images, noacute or subacute infarct. Extensive area of encephalomalacia present across the posterior portion ofthe left cerebral hemisphere involving the left parietal, occipital, andtemporal regions. Background of marked global parenchymal volume loss, accelerated forpatient age. This includes white matter volume loss with ex vacuodilatation of the lateral ventricles. Areas of encephalomalacia also present in the structures of the posteriorcranial fossa including the cerebellum and vermis, right more extensivethan left. Volume loss and portions of the brainstem. Resultant ex vacuodilatation of the fourth ventricle. Moderate white matter T2/flair hyperintense signal abnormalitiescompatible with underlying gliosis. Some of this may be due to smallvessel ischemic type findings while others may be sequelae of previoustraumatic brain injury for example. Prior surgical tract through the right frontal lobe. Progress previousright- sided temporal craniotomy with residual fluid and debris under thecraniotomy flap about a centimeters in maximal thickness. Patent basal cisterns. The expected major arterial intracranial flowvoids are identified at the skull base level. On the heme sensitive images, extensive hemosiderin staining through theregions of encephalomalacia previously discussed in the left cerebralhemisphere. Additional hemosiderin staining along the surgical tractthrough the right frontal region. Scattered hemosiderin staining withinsome of the sulci along the left frontal lobe. Some dural thickening and enhancement under the craniotomy flap. Minimalsmooth dural thickening and enhancement elsewhere over the right and leftcerebral hemispheres as well. No nodularity. No suspicious site of enhancement within the brain parenchyma itself. Corpus callosum unremarkable. Pituitary gland unremarkable.Craniocervical junction otherwise unremarkable. No acute sinusitis. Orbits symmetric. IAC protocol MR with and without contrast: Previous canal wall downmastoidectomy on the right with fluid redemonstrated and what remains ofthe right mastoid air cell region. Closure of the right external auditorycanal area. 7 8th cranial nerves identified on the right and left. [place] fluid signal intensity along the lateral semicircular canal on theright consistent with a documented calcification/mineralization in thatarea on the previous obtained temporal bone CT from the same date. Fluidsignal intensity remains in the right posterior and superior semicircularcanal areas. Cochlear nerve still appears to be present. Cochlea itselfappears unremarkable. Left inner ear structures unremarkable. Areas of dehiscence along the tegmen mastoideum region on the right arebetter demonstrated on the previous temporal bone CT study from [place] IMPRESSION: Brain MR with and without contrast: Global parenchymal volume loss, areasof encephalomalacia and postoperative change as well as multifocal gliosisas detailed above. Areas of hemosiderin staining also demonstrated. IAC protocol MR with and without contrast: Posttreatment changes in theright temporal bone with details as above. Dehiscence along portions ofthe tegmen mastoideum area better visualized on previous MR study.Sequelae of labyrinthitis/calcification in the right lateral semicircularcanal redemonstrated. Cochlea and cochlear nerve still appear intact. Ezio Lay MD This report has been electronically signed and verified by the Radiologistwhose name is printed above. This report contains privileged and confidential information and isintended solely for the use of the individual or entity to which it isaddressed. If you are not the intended recipient of this report, you arehereby notified that any copying, distribution, dissemination or actiontaken in relation to the contents of this report is strictly prohibitedand may be unlawful. If you have received this report in error, pleasenotify the sender immediately at [phone] and permanently delete theoriginal report and destroy any copies or printouts. us Jorge Mckeon MD IMG MRI PROCEDURES Final Resul t * MR Head w and wo IV Contrast (06/17/2025 10:29 AM EDT) Anatomical Region Laterality Modality Head Magnetic Resonan ce Impressions 06/17/2025 4:31 PM EDT Brain MR with and without contrast: Global [...] labyrinthitis/calcification in the right lateral semicircular canal redemonstrated. Cochlea and cochlear nerve still appear intact. [...] error, please notify the sender immediately at [phone] and permanently delete the original report and destroy any copies or printouts. Narrative 06/17/2025 4:31 PM EDT [facility] - Phone Outpatient NAME: Adrian Piper DATE OF EXAM: 06/17/2025 Patient No: [id number] Physician: Tiera^Ad Date of : 1975 Examination: Brain MR with and without contrast IAC protocol MR with and without contrast Symptoms/Reason For Exam (entered by technologist): Sensorineural hearing loss prepositions cochlear implant History of comminuted right temporal bone fracture with previous canal wall down mastoidectomy and right temporal craniotomy. Open fracture of temporal bone with routine healing, subsequent encounter; Sensorineural hearing loss, unilateral, right ear, with restricted hearing on the contralateral side Technique: Multiplanar multisequence MR imaging of the brain and internal auditory canals was performed with and without IV contrast material. Contrast Agent and Dose: 9.8 cc Gadavist given intravenously. Comparison: Temporal bone CT without contrast from same date. Previous temporal bone CT study dated 07/10/20. FINDINGS: Brain MR with and without contrast: On the diffusion-weighted images, no acute or subacute infarct. Extensive area of encephalomalacia present across the posterior portion of the left cerebral hemisphere involving the left parietal, occipital, and temporal regions. Background of marked global parenchymal volume loss, accelerated for patient age. This includes white matter volume loss with ex vacuo dilatation of the lateral ventricles. Areas of encephalomalacia also present in the structures of the posterior cranial fossa including the cerebellum and vermis, right more extensive than left. Volume loss and portions of the brainstem. Resultant ex vacuo dilatation of the fourth ventricle. Moderate white matter T2/flair hyperintense signal abnormalities compatible with underlying gliosis. Some of this may be due to small vessel ischemic type findings while others may be sequelae of previous traumatic brain injury for example. Prior surgical tract through the right frontal lobe. Progress previous right-sided temporal craniotomy with residual fluid and debris under the craniotomy flap about a centimeters in maximal thickness. Patent basal cisterns. The expected major arterial intracranial flow voids are identified at the skull base level. On the heme sensitive images, extensive hemosiderin staining through the regions of encephalomalacia previously discussed in the left cerebral hemisphere. Additional hemosiderin staining along the surgical tract through the right frontal region. Scattered hemosiderin staining within some of the sulci along the left frontal lobe. Some dural thickening and enhancement under the craniotomy flap. Minimal smooth dural thickening and enhancement elsewhere over the right and left cerebral hemispheres as well. No nodularity. No suspicious site of enhancement within the brain parenchyma itself. Corpus callosum unremarkable. Pituitary gland unremarkable. Craniocervical junction otherwise unremarkable. No acute sinusitis. Orbits symmetric. IAC protocol MR with and without contrast: Previous canal wall down mastoidectomy on the right with fluid redemonstrated and what remains of the right mastoid air cell region. Closure of the right external auditory canal area. 7 8th cranial nerves identified on the right and left. Loss of fluid signal intensity along the lateral semicircular canal on the right consistent with a documented calcification/mineralization in that area on the previous obtained temporal bone CT from the same date. Fluid signal intensity remains in the right posterior and superior semicircular canal areas. Cochlear nerve still appears to be present. Cochlea itself appears unremarkable. Left inner ear structures unremarkable. Areas of dehiscence along the tegmen mastoideum region on the right are better demonstrated on the previous temporal bone CT study from the same date. Procedure Note Ezio Lay MD - 06/17/2025 [facility] - Phone Outpatient NAME: Adrian Piper DATE OF EXAM: 06/17/2025 Patient No: [id number] Physician: Mike^Jorge^Ad Date of : 1975 Examination: Brain MR with and without contrast IAC protocol MR with and without contrast Symptoms/Reason For Exam (entered by technologist): Sensorineural hearingloss prepositions cochlear implant History of comminuted right temporal bone fracture with previous canalwall down mastoidectomy and right temporal craniotomy. Open fracture of temporal bone with routine healing, subsequent encounter;Sensorineural hearing loss, unilateral, right ear, with restricted hearingon the contralateral side Technique: Multiplanar multisequence MR imaging of the brain and internalauditory canals was performed with and without IV contrast material. Contrast Agent and Dose: 9.8 cc Gadavist given intravenously. Comparison: Temporal bone CT without contrast from same date. Previoustemporal bone CT study dated 07/10/20. FINDINGS: Brain MR with and without contrast: On the diffusion-weighted images, noacute or subacute infarct. Extensive area of encephalomalacia present across the posterior portion ofthe left cerebral hemisphere involving the left parietal, occipital, andtemporal regions. Background of marked global parenchymal volume loss, accelerated forpatient age. This includes white matter volume loss with ex vacuodilatation of the lateral ventricles. Areas of encephalomalacia also present in the structures of the posteriorcranial fossa including the cerebellum and vermis, right more extensivethan left. Volume loss and portions of the brainstem. Resultant ex vacuodilatation of the fourth ventricle. Moderate white matter T2/flair hyperintense signal abnormalitiescompatible with underlying gliosis. Some of this may be due to smallvessel ischemic type findings while others may be sequelae of previoustraumatic brain injury for example. Prior surgical tract through the right frontal lobe. Progress previousright- sided temporal craniotomy with residual fluid and debris under thecraniotomy flap about a centimeters in maximal thickness. Patent basal cisterns. The expected major arterial intracranial flowvoids are identified at the skull base level. On the heme sensitive images, extensive hemosiderin staining through theregions of encephalomalacia previously discussed in the left cerebralhemisphere. Additional hemosiderin staining along the surgical tractthrough the right frontal region. Scattered hemosiderin staining withinsome of the sulci along the left frontal lobe. Some dural thickening and enhancement under the craniotomy flap. Minimalsmooth dural thickening and enhancement elsewhere over the right and leftcerebral hemispheres as well. No nodularity. No suspicious site of enhancement within the brain parenchyma itself. Corpus callosum unremarkable. Pituitary gland unremarkable.Craniocervical junction otherwise unremarkable. No acute sinusitis. Orbits symmetric. IAC protocol MR with and without contrast: Previous canal wall downmastoidectomy on the right with fluid redemonstrated and what remains ofthe right mastoid air cell region. Closure of the right external auditorycanal area. 7 8th cranial nerves identified on the right and left. [place] fluid signal intensity along the lateral semicircular canal on theright consistent with a documented calcification/mineralization in thatarea on the previous obtained temporal bone CT from the same date. Fluidsignal intensity remains in the right posterior and superior semicircularcanal areas. Cochlear nerve still appears to be present. Cochlea itselfappears unremarkable. Left inner ear structures unremarkable. Areas of dehiscence along the tegmen mastoideum region on the right arebetter demonstrated on the previous temporal bone CT study from [place]. IMPRESSION: Brain MR with and without contrast: Global parenchymal volume loss, areasof encephalomalacia and postoperative change as well as multifocal gliosisas detailed above. Areas of hemosiderin staining also demonstrated. IAC protocol MR with and without contrast: Posttreatment changes in theright temporal bone with details as above. Dehiscence along portions ofthe tegmen mastoideum area better visualized on previous MR study.Sequelae of labyrinthitis/calcification in the right lateral semicircularcanal redemonstrated. Cochlea and cochlear nerve still appear intact. Ezio Lay MD This report has been electronically signed and verified by the Radiologistwhose name is printed above. This report contains privileged and confidential information and isintended solely for the use of the individual or entity to which it isaddressed. If you are not the intended recipient of this report, you arehereby notified that any copying, distribution, dissemination or actiontaken in relation to the contents of this report is strictly prohibitedand may be unlawful. If you have received this report in error, pleasenotify the sender immediately at [phone] and permanently delete theoriginal report and destroy any copies or printouts. Jorge Mckeon MD IMG MRI PROCEDURES Final Resul t * ED HIV 1/2 Antibody/Antigen Screen w/Reflex to HIV 1/2 Differentiation (11/15/2024 4:02 PM EST) Pathologist [facility] HIV 1 & 2 Antibody/Antigen Screen Non Reactive Non Reactive 11/15/2024 5:00 PM EST [facility] Comment:Screening for HIV 1 & 2 antibodies, and P24 antigen is NONREACTIVE. No confirmatory testing is required. Blood Venous blood specimen / Unknown Venipuncture / Unknown 11/15/2024 4:02 PM EST 11/15/2024 4:19 PM EST Prerna Velasco MD LAB BLOOD ORDERABLES Final Re sult Performing Organization Address City/[facility] Co de Phone Number [facility] [address] [place] [address] * Hepatitis C Antibody - ED (11/15/2024 4:02 PM EST) Pathologist [facility] Hepatitis C Antibody Negative Negative 11/15/2024 5:00 PM EST [facility] Blood Venous blood specimen / Unknown Venipuncture / Unknown 11/15/2024 4:02 PM EST 11/15/2024 4:18 PM EST Prerna Velasco MD LAB BLOOD ORDERABLES Final Re sult Performing Organization Address City/[facility] Co de Phone Number [facility] [address] [place] [address] from Last 3 Months or Most Recently Relevant to Health Maintenance Additional Health Concerns Active Problems Noted Date Diagnosed Date Autogenerated Problem 07/15/2025 Infection Onset Date Last Indicated 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 Do not resolve this infection. Lillian Robb RN [facility] 08/08/2020 03/08/2021 MRSA 11/15/2024 11/15/2024 Insurance [facility] MEDICAID [facility] MEDICAID Advance Directives * Full Code (Latest Code Status on File) Date Activated Date Inactivated Comments 12/15/2024 4:43 PM 12/18/2024 1:40 PM Question Answer Comments Patient has decision-making capacity? Yes * Full Code Date Activated Date Inactivated Comments 11/15/2024 7:55 PM 11/25/2024 4:06 PM Question Answer Comments Patient has decision-making capacity? No Healthcare Surrogate: Parent(s) of the patient Name of Healthcare Surrogate: mother Maria Luz Ayoub * Full Code Date Activated Date Inactivated Comments 08/09/2023 10:57 PM 08/30/2023 4:21 PM Question Answer Comments Patient has decision-making capacity? Yes Care Teams Abrasives Sales Representative Relationship Specialty Start Date End Date Krissy De Los Santos APRN [address] [place] [id number] PCP - General 07/10/23 Sudha Saha PA [address] [id number] Physician [employer] Operator Neurosurgery 11/06/22
--- OUTSIDE RECORDS SUMMARY | 2025-09-14 15:12 | XMS_ITS | Encounter Summary ---
Author Organization [facility] Address [address] [place] [address] Care Team Providers Care Sulfuric Acid Plant Supervisor Name Role Phone Sudha Saha PA Unavailable [phone] Krissy De Los Santos APRN Primary Care Provider [phone] Encounter Details Date Type Department Care Team (Latest Contact Info) Description 08/31/2025 Travel Social History Tobacco Use Types Packs/Day [...] How often do you attend [facility] or confucianist services? Patient unable to answer 12/16/2024 Do you belong to any clubs o r organizations such as synagogue groups, unions, fraternal or athletic groups, or [...] 0 12/02/2024 [facility] of Occupat ional [facility] - Occupational Stress Questionnaire Answer Date [...] any time in the past 12 m [facility], were you homeless or living [...] drink first t karina in the morning (EYE-SUPERVISOR CARDING) to steady your nerves or to get [...] Description 10/01/2025 9:00 AM EST Office Visit [facility] Audiology [address], [address] [place] [address] Candida Hathaway, AuD [address] [place] [address] 02/08/2026 10:50 AM EDT Consult [facility] Urology [address] [place] [address] Sheeba Barrett, LINE PAINTING MACHINE OPERATOR, DNP [address] [place] [address] 03/01/2026 1:30 PM EDT Office Visit [facility] at [facility] [address] [place] [address] Didier Higgins MD [address] [facility] [address] [place] [address] 03/21/2026 Hospital Encounter PAV A OPERATING ROOM [address] [place] [address] Oscar Amador, DDS [address] [place] [address] Scheduled Procedures Name Priority Associated Diagnoses Date/Ti [...] documented as of this encounter Care Teams Sulfuric Acid Plant Supervisor Relationship Specialty Start Date End Date Krissy De Los Santos, LINE PAINTING MACHINE OPERATOR [address] [place] [address] PCP - General 07/10/23 Sudha Saha PA [address] [facility] [address] [place] [address] Physician Horseback Excavator Neurosurgery 11/06/22 documented as of this encounter
[2025-09-14 15:19] LABS: Microscopic, Urine URINE MICROSCOPIC (MICROSCOPIC)
[2025-09-14 15:46] LABS: Hematocrit 43.1 % (42.0-52.0); Hemoglobin 14.9 g/dL (14.1-18.0); Immature Granulocytes % 0.4 %; Mean Corpuscular HGB Conc 34.6 g/dL (31.8-35.4); Mean Corpuscular Hemoglobin 31.7 pg (27.0-31.2); Mean Corpuscular Volume 91.7 fl (80-94); Nucleated Red Blood Cells % 0 %; Platelet Count 290 K/mm3 (142-424); Red Blood Count 4.70 M/mm3 (4.60-6.20); Red Cell Distribution Width-SD 45.7 fL; White Blood Count 16.2 K/mm3 (4.8-10.8)
[2025-09-14 16:28] LABS: Potassium 4.5 mmoL/L (3.5-5.1); Sodium 140 mmol/L (136-145)
[2025-09-14 16:30] LABS: Alanine Aminotransferase 21 U/L (12-78); Aspartate Amino Transferase 25 U/L (17-59); Blood Urea Nitrogen 14 mg/dl (9-20); Carbon Dioxide 27 mmol/L (22.0-30.0); Creatinine,Serum 0.80 mg/dl (0.66-1.25); Estimated Glomerular Filt Rate 103 ml/min (>60); GFR (African American) 125 ML/MIN (>60); Total Protein,Serum 7.5 g/dl (6.3-8.2)
[2025-09-14 16:31] LABS: Alkaline Phosphatase 95 U/L (38-126); Bilirubin,Total 0.5 mg/dl (0.2-1.3); Calcium 9.6 mg/dl (8.4-10.2); Cholesterol 137 mg/dl (140-200); Glucose 85 mg/dl (74-100); HDL Cholesterol 48 mg/dl (40-60); Iron 109 ug/dL (49-181); Triglycerides 165 mg/dl (30-150)
[2025-09-14 16:41] LABS: Total Iron Binding Capacity 334 ug/dL (261-462)
[2025-09-14 16:42] LABS: Albumin Level 4.7 g/dl (3.5-5.0); Albumin/Globulin Ratio 1.7 (1.1-1.8); Anion Gap 17.5 mEq/L (5-15); Chloride 100 mmol/L (98-107); Globulin 2.8 g/dL (1.3-3.2)
[2025-09-14 16:44] LABS: Free T4 (Free Thyroxine) 1.16 ng/dl (0.78-2.19)
[2025-09-14 16:46] LABS: 25-OH Vitamin D, Total 20.6 ng/mL (30-100)
[2025-09-14 17:01] LABS: Thyroid Stimulating Hormone 2.43 uIU/mL (0.465-4.68)
[2025-09-14 17:04] LABS: Hemoglobin A1C 5.1 % (4.0-6.0)
[2025-09-14 17:05] LABS: Ferritin 16.8 ng/ml (17.9-464)
[2025-09-14 18:00] LABS: Bilirubin,Urine Negative (Negative); Color,Urine YELLOW (Yellow); Glucose,Urine (UA) Negative (Negative); Ketones,Urine Negative (Negative); Leukocyte Esterase,Urine Negative (Negative); PH,Urine 6.0 (5.0-8.5); Protein,Urine Negative (Negative); Urobilinogen,Urine 0.2 EU/dl (0.2)
[2025-09-14 18:06] LABS: Specific Gravity, Urine 1.031 (1.005-1.030)
[2025-09-14 18:37] LABS: Vitamin B12 407 pg/mL (239-931)
[2025-09-14 18:47] LABS: WBC,Urine Occasional #/hpf (0-3)
== END 2025-09-14 23:59 | disposition home or self-care (01) ==
LOC: LAB 15:09
PROVIDERS: PCP Nurse Practitioner Family; Visit Provider Nurse Practitioner Family
DX: J43.9 Emphysema, unspecified (principal); R56.9 Unspecified convulsions; I10 Essential (primary) hypertension; Z72.0 Tobacco use; I63.9 Cerebral infarction, unspecified; G47.00 Insomnia, unspecified; E78.5 Hyperlipidemia, unspecified; H91.90 Unspecified hearing loss, unspecified ear; Z13.21 Encounter for screening for nutritional disorder; Z13.29 Encounter for screening for other suspected endocrine disorder
CPT/HCPCS: 36415; 80053; 80061; 81001; 82306; 82607; 82728; 83036; 83540; 83550; 84156; 84439; 84443; 85025; 87086

== ENCOUNTER 2025-10-05 13:56 | Outpatient (CLI) | payer OTHER, SELFPAY ==
--- OUTSIDE RECORDS SUMMARY | 2025-08-31 14:30 | XMS_ITS | Encounter Summary ---
Author Organization Healthcare Address [address] [place] [address] Care Team Providers Care Network Systems Analyst Name Role Phone Sudha Saha Unavailable [phone] Krissy De Los Santos APRN Primary Care Provider [phone] Reason for Visit * Reason Comments Hearing Loss Encounter Details Date Type Department Care Team (Latest Contact Info) Description 08/31/2025 2:30 PM EST Office Visit [facility] Audiology [address] [place] [address] Phylicia Kerr, AuD [address] [place] [address] Sensorineural hearing loss (SNHL) of left ear with restricted hearing of right ear (Primary Dx); Mixed conductive and sensorineural hearing loss of right ear with restricted hearing of left ear Social History Tobacco Use Types Packs/Day Years Used Date Smoking Tobacco: Every Day Cigarettes 0.5 26.6 Started: 03/03/1999 Smokeless Tobacco: Never Alcohol Use [...] answer 12/16/2024 How often do you attend [facility] or druze services? Patient unable to answer 12/16/2024 Do you belong to any clubs o r organizations such as latter-day groups, unions, fraternal or athletic groups, or [...] Recorded Patient Health Questionnaire-2 Score 0 12/02/2024 [facility] [place] of Occupat ional Health - Occupational Stress [...] place to sleep or slept in a mcc (including now)? No 08/10/2023 PHQ-9 Answer Date [...] any time in the past 12 m [facility], were you homeless or living in a mcc (including now)? Patient unable to answer 12/16/2024 [...] drink first t karina in the morning (EYE-FOOD MIXER) to steady your nerves or to get rid of a hangover? 0 11/16/2024 CAGE Questionnaire Score 0 025 Utilities Answer Date Recorded In the past 12 months has th e electric, gas, oil, or water company threatened [...] skull fractures and had CSF leak repair. Chitos have a history of noise exposure as [...] given his etiology and the importance of realtime court reporter use of the processor. She was provided information on all 3 manufacturers. She will follow up with Dr. Mckeon later today to discuss candidacy from a medical standpoint. Should the family ultimately decide not to proceed with surgery, he would also be a candidate for a Bi-CROS hearing aid system. The differences were discussed with his mother today. Manuel Schwarz, [facility]-A Hadoop Administrator Referring Provider: Jorge Mckeon M.D. COCHLEAR IMPLANT [...] No evidence of redness, edema or sensitivity. Mud Grinder: Ear: LEFT: Surgery Date: Internal Device: Processor #1: Processor #2: Magnet strength: Cord length: Battery: Accessories: RIGHT: Hearing Aid: SN: Battery: Fit Date: Warranty Exp: Electrode Impedances: Stable for all electrodes along the array. [place] Assessment: Mapping Session Notes: ASSESSMENT/PLAN Return per cochlear implant protocol schedule (patient has copy) or Manuel Senior, CCC-A Hadoop Administrator documented in this encounter Plan of Treatment Upcoming Encounters Date Type Department Care Team (Late st Contact Info) Description 02/08/2026 10:50 AM EDT Consult [facility] [address] [place] [address] Sheeba Barrett, AGRICULTURAL EXTENSION OFFICER, DNP [address] [place] [address] 03/01/2026 1:30 PM EDT Office Visit [facility] [address] [phone] Didier Higgins MD [address] [facility] [address] [place] [phone] 03/21/2026 Hospital Encounter [facility] [address] OPERATING RO[address] [place] [address] Oscar Amador, DDS [address] [place] [address] Scheduled Procedures Name Priority Associated [...] documented as of this encounter Care Teams Network Systems Analyst Relationship Specialty Start Date End Date Krissy De Los Santos APRN [address] [place] [address] PCP - General 07/10/23 Sudha Saha PA [address] [facility] [address] [place] [address] Physician Psychology Clinician Neurosurgery 11/06/22 documented as of this encounter
--- OUTSIDE RECORDS SUMMARY | 2025-08-31 16:10 | XMS_ITS | Encounter Summary ---
Author Organization Healthcare Address [address] [place] [address] Care Team Providers Care Senior Managing Director Name Role Phone Sudha Saha Unavailable [phone] Krissy De Los Santos APRN Primary Care Provider [phone] Reason for Visit * Reason Comments Follow-up Encounter Details Date Type Department Care Team (Latest Contact Info) Description 08/31/2025 4:10 PM EST Office Visit [facility] [address] [place] [address] Jorge Mckeon MD [address] [place] [address] Profound hearing loss of right ear (Primary Dx); CVA, old, speech/language deficit; Sensorineural hearing loss, unilateral, right ear, with restricted hearing on the contralateral side; Open fracture of temporal bone with routine healing, subsequent encounter Social History Tobacco Use Types Packs/Day Years Used Date Smoking Tobacco: Every Day Cigarettes 0.5 26.6 Started: 03/03/1999 Smokeless Tobacco: Never Tobacco Cessation:Ready [...] answer 12/16/2024 How often do you attend [facility] or buddhist services? Patient unable to answer 12/16/2024 Do you belong to any clubs o r organizations such as jain groups, unions, fraternal or athletic groups, or [...] Recorded Patient Health Questionnaire-2 Score 0 12/02/2024 [facility] - Occupational Stress [...] any time in the past 12 m [facility], were you homeless or living in [...] drink first t karina in the morning (EYE-YACHT BUILDER) to steady your nerves or to get [...] error, please notify the sender immediately at [phone] and permanently delete theoriginal report and destroy [...] error, please notify the sender immediately at [phone] and permanently delete theoriginal report and destroy [...] left 07/09/2020 post SNF, s/p surgical repair [2] Past Surgical History: Procedure Laterality Date ARM SURGERY Right 2023 CRANIECTOMY 06/2020 s/p crani and repair of CSF leak 07/10 and 07/22 FEEDING TUBE PLACEMENT post SNF now removed in December 2020 KNEE SURGERY Left Knee surgery from [employer] MULTIPLE TOOTH EXTRACTIONS 03/17/2022 extraction of all [...] Info) Description 02/08/2026 10:50 AM EDT Consult [facility] [address] [place] [address] Sheeba Barrett, TERMINAL WORKER, DNP [address] [place] [address] 03/01/2026 1:30 PM EDT Office Visit [facility] [address] [address] Didier Higgins MD [address] [place] [address] 03/21/2026 Hospital Encounter [facility] [address] [place] [phone] Oscar Amador, DDS [address] [place] [address] Scheduled Procedures Name Priority Associated [...] as of this encounter Care Teams Senior Managing Director Relationship Specialty Start Date End Date Krissy De Los Santos APRN [address] [place] [address] PCP - General 07/10/23 Sudha Saha PA [address] [facility] [address] [place] [id number] Physician Tester Armature Or Fields Neurosurgery 11/06/22 documented as of this encounter
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
--- OUTSIDE RECORDS SUMMARY | 2025-10-05 14:11 | XMS_ITS | Encounter Summary ---
Author Organization Healthcare Address [address] [place] [address] Care Team Providers Care Commander Police Reserves Name Role Phone Sudha Saha Unavailable [phone] Krissy De Los Santos APRN Primary Care Provider [phone] Encounter Details Date Type Department Care Team (Late st Contact Info) Description 07/22/2024 Orders Only External Location [address] [place] [address] Provider, External Social History Tobacco Use Types [...] money to buy more. Never true 08/10/20 23 Within the past 12 months, t he [...] place to sleep or slept in a assisted (including now)? No 08/10/2023 Utilities Answer Date [...] Info) Description 02/08/2026 10:50 AM EDT Consult [facility] Urology [address], [address]nd [place] [address] Sheeba Barrett, SHAREPOINT SPECIALIST, DNP [address] [place] [address] 03/01/2026 1:30 PM EDT Office Visit [facility] [address] [place] [address] Didier Higgins MD [address] [place] [address] 03/21/2026 Hospital Encounter PAV A OPERATING ROOM [address] [place] [address] Oscar Amador, DDS [address] [place] [address] Scheduled Procedures Name Priority Associated Diagnoses Date/Ti me ALVEOLOPLASTY, SIMPLE, WITH TOOTH EXTRACTION Exostosis documented as of this encounter Procedures Procedure Name Priority Date/Time Associated Diagnosis Comments CT NEURO OUTSIDE IMAGES 07/22/2024 8:18 PM EDT documented in this encounter Results * CT NEURO OUTSIDE IMAGES (07/22/2024 8:18 PM EDT) Anatomical Region Laterality Modality Computed Tomogra phy 07/22/2024 8:18 PM EDT External Provider IMG CT PROCEDURES Final Result [...] 11/15/2024 11/15/2024 Meningitis Rule-Out 11/17/2024 11/17/2024 11/17/19 1:12 PM EST Assessment Noted Time A fall risk assessment has been complete d for the patient 05/29/2024 10:02 AM EDT A Body Mass Index follow-up plan has been documented for the patient 05/29/2024 12:48 PM EDT documented as of this encounter Care Teams Commander Police Reserves Relationship Specialty Start Date End Date Krissy De Los Santos APRN [address] [place] [address] PCP - General 07/10/23 Sudha Saha PA [address] [facility] [address] [place] [address] Physician Clean Up Worker Neurosurgery 11/06/22 documented as of this encounter
--- OUTSIDE RECORDS SUMMARY | 2025-10-05 14:11 | XMS_ITS | Encounter Summary ---
Author Organization Healthcare Address [address] [place] [address] Care Team Providers Care Network Diagnostic Support Specialist Name Role Phone Sudha Saha Unavailable [phone] Krissy De Los Santos APRN Primary Care Provider [phone] Encounter Details Date Type Department Care Team (Late st Contact Info) Description 07/22/2024 Orders Only External Location [address] [place] [address] Provider, External Social History Tobacco Use Types [...] in a mcc (including now)? No 08/10/2023 Utilities Answer Date [...] Info) Description 02/08/2026 10:50 AM EDT [facility] [address], 2nd [place] [address] Sheeba Barrett, METAL MOVER, DNP [address] [place] [address] 03/01/2026 1:30 PM EDT Office Visit [facility] [address] [place] [address] Didier Higgins MD [address] [place] [address] 03/21/2026 Hospital Encounter PAV A OPERATING ROOM [address] [place] [address] Oscar Amador, DDS [address] [place] [address] Scheduled Procedures Name Priority Associated Diagnoses Date/Ti me ALVEOLOPLASTY, SIMPLE, WITH TOOTH EXTRACTION Exostosis documented as of this encounter Procedures Procedure Name Priority Date/Time Associated Diagnosis Comments CT NEURO OUTSIDE IMAGES 07/22/2024 8:15 PM EDT documented in this encounter Results * CT NEURO OUTSIDE IMAGES (07/22/2024 8:15 PM EDT) Anatomical Region Laterality Modality Computed Tomogra phy 07/22/2024 8:15 PM EDT External Provider IMG CT PROCEDURES Final Result documented in this encounter Visit Diagnoses Not on filedocumented in this encounter Additional Health Concerns Infection Onset Date Last Indicated Resolved Time 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 Do not resolve this infection. Lililan Robb RN IPAC 08/08/2020 03/08/2021 COVID-19 Rule-Out [...] as of this encounter Care Teams Network Diagnostic Support Specialist Relationship Specialty Start Date End Date Krissy De Los Santos APRN [address] [place] [address] PCP - General 07/10/23 Sudha Saha PA [address] [facility] [address] [place] [address] Physician Body And Fender Mechanic Apprentice Neurosurgery 11/06/22 documented as of this encounter
--- OUTSIDE RECORDS SUMMARY | 2025-10-05 14:12 | XMS_ITS | Encounter Summary ---
Author Organization Healthcare Address [address] [place] [address] Care Team Providers Care Soaker Helper Name Role Phone Sudha Saha Unavailable [phone] Krissy De Los Santos APRN Primary Care Provider [phone] Encounter Details Date Type Department Care Team (Late st Contact Info) Description 09/29/2025 Telephone [facility] Audiology [address], 3rd [place] [address] Rivera Blankenship ````````````````````` - PACU - MAJOR, PAV A Social [...] How often do you attend chur or quaker services? Patient unable to answer 12/16/2024 Do you belong to any clubs o r organizations such as anabaptist groups, unions, fraternal or athletic groups, or [...] Recorded Patient Health Questionnaire-2 Score 0 12/02/2024 [facility] of Occupat ional Health - [...] in a assisted (including now)? No 08/10/2023 PHQ-9 Answer Date [...] any time in the past 12 m [facility], were you homeless or living in a assisted (including now)? Patient unable to answer 12/16/2024 [...] drink first t karina in the morning (EYE-KITCHEN CHEF) to steady your nerves or to get [...] Info) Description 02/08/2026 10:50 AM EDT Consult [facility] Urology [address]nd [place] [address] Sheeba Barrett, SHOP SERVICE TECHNICIAN, DNP [address] [facility] [address] [place] [address] 03/01/2026 1:30 PM EDT Office Visit Physical Medicine & Rehabilitation Clinic at [facility] [address] [address] Didier Higgins MD [address] [facility] [address] [place] [address] 03/21/2026 Hospital Encounter PAV A OPERATING ROOM [address] [place] [address] Oscar Amador, DDS [address] [place] [address] Scheduled Procedures Name Priority Associated Diagnoses Date/Ti [...] documented as of this encounter Care Teams Soaker Helper Relationship Specialty Start Date End Date Krissy De Los Santos APRN [address] [place] [address] PCP - General 07/10/23 Sudha Saha PA [address] [facility] [address] [place] [address] Physician Machine Attendant Neurosurgery 11/06/22 documented as of this encounter
--- OUTSIDE RECORDS SUMMARY | 2025-10-05 14:12 | XMS_ITS | Encounter Summary ---
Author Organization Healthcare Address [address] [place] [address] Care Team Providers Care Propulsion Motor And Generator Repairer Name Role Phone Sudha Saha Unavailable [phone] Krissy De Los Santos APRN Primary Care Provider [phone] Encounter Details Date Type Department Care Team (Late st Contact Info) Description 09/01/2025 Telephone [facility] Audiology [address] 3rd [place] [address] Rivera Blankenship ````````````````````` - PACU - MAJOR, [...] How often do you attend chur or nondenominational services? Patient unable to answer 12/16/2024 Do you belong to any clubs o r organizations such as protestant groups, unions, fraternal or athletic groups, or [...] Recorded Patient Health Questionnaire-2 Score 0 12/02/2024 [facility] of Occupat ional Health - Occupational Stress [...] place to sleep or slept in a jail (including now)? No 08/10/2023 PHQ-9 Answer Date [...] in the past [address] [facility], were you homeless or living in a jail (including now)? Patient unable to answer 12/16/2024 [...] drink first t karina in the morning (EYE-ANALYTICS LEADER) to steady your nerves or to get [...] Info) Description 02/08/2026 10:50 AM EDT Consult [facility] Urology [address] 2nd [place] [address] Sheeba Barrett, CDL PROGRAM COORDINATOR, DNP [address] [facility] [address] [place] [address] 03/01/2026 1:30 PM EDT Office Visit Physical Medicine & Rehabilitation Clinic at [facility] [address] [place] [address] Didier Higgins MD [address] [facility] [address] [place] [address] 03/21/2026 Hospital Encounter PAV A OPERATING ROOM [address] [place] [address] Oscar Amador, DDS [address] [place] [address] Scheduled Procedures Name Priority Associated Diagnoses Date/Ti [...] documented as of this encounter Care Teams Propulsion Motor And Generator Repairer Relationship Specialty Start Date End Date Krissy De Los Santos APRN [address] [place] [address] PCP - General 07/10/23 Sudha Saha PA [address] [facility] [address] [place] [address] Physician Labor Relations Teacher Neurosurgery 11/06/22 documented as of this encounter
--- OUTSIDE RECORDS SUMMARY | 2025-10-05 14:12 | XMS_ITS | Encounter Summary ---
Author Organization Healthcare Address [address] [place] [address] Care Team Providers Care Transactional Paralegal Name Role Phone Sudha Saha Unavailable [phone] Krissy De Los Santos APRN Primary Care Provider [phone] Encounter Details Date Type Department Care Team (Late st Contact Info) Description 09/01/2025 Telephone [facility] Audiology [address], 3rd [place] [address] Rivera Blankenship ````````````````````` - PACU - MAJOR, [...] How often do you attend chur or taoist services? Patient unable to answer 12/16/2024 Do you belong to any clubs o r organizations such as anglican groups, unions, fraternal or athletic groups, or [...] Recorded Patient Health Questionnaire-2 Score 0 12/02/2024 [facility] of Occupat ional Health - [...] any time in the past [address] [facility], were you homeless or living in [...] drink first t karina in the morning (EYE-LINING VAMPER) to steady your nerves or to get [...] Info) Description 02/08/2026 10:50 AM EDT Consult [facility] Urology [address] [place] [address] Sheeba Barrett, HANDMADE TILE ARTIST, DNP [address] [facility] [address] [place] [address] 03/01/2026 1:30 PM EDT Office Visit Physical Medicine & Rehabilitation Clinic at [facility] [address] [place] [address] Didier Higgins MD [address] [facility] [address] [place] [address] 03/21/2026 Hospital Encounter PAV A OPERATING ROOM [address] [place] [address] Oscar Amador, DDS [address] [place] [address] Scheduled Procedures Name Priority Associated Diagnoses Date/Ti [...] documented as of this encounter Care Teams Transactional Paralegal Relationship Specialty Start Date End Date Krissy De Los Santos APRN [address] [place] [address] PCP - General 07/10/23 Sudha Saha PA [address] [facility] [address] [place] [address] Physician Network/Telecom Engineer Neurosurgery 11/06/22 documented as of this encounter
--- OUTSIDE RECORDS SUMMARY | 2025-10-05 14:12 | XMS_ITS | Encounter Summary ---
Author Organization [facility] Address [address] [place] [id number] Care Team Providers Care Development Geologist Name Role Phone Sudha Saha PA Unavailable [phone] Krissy De Los Santos APRN Primary Care Provider [phone] Encounter Details Date Type Department Care Team (Latest Contact Info) Description 10/01/2025 Travel Social History Tobacco Use Types Packs/Day [...] often do you attend chur ch or rastafarian services? Patient unable to answer 12/16/2024 Do [...] Patient Health Questionnaire-2 Score 0 12/02/2024 [facility] of Occupat ional Health - Occupational Stress [...] drink first t karina in the morning (EYE-HIGH MAN) to steady your nerves or to get [...] EDT [facility] [address], [address] [place] [address] Sheeba Barrett, YEAST FERMENTATION ATTENDANT, DNP [address] [place] [address] 03/01/2026 1:30 PM EDT Office Visit [facility] [address] [place] [address] Didier Higgins MD [address] [facility] [address] [place] [address] 03/21/2026 Hospital Encounter PAV A OPERATING ROOM [address] [place] [address] Oscar Amador, DDS [address] [place] [address] Scheduled Procedures Name Priority Associated Diagnoses Date/Ti [...] documented as of this encounter Care Teams Development Geologist Relationship Specialty Start Date End Date Krissy De Los Santos APRN [address] [place] [address] PCP - General 07/10/23 Sudha Saha PA [address] [facility] [address] [place] [address] Physician Sourcing Manager Neurosurgery 11/06/22 documented as of this encounter
--- OUTSIDE RECORDS SUMMARY | 2025-10-05 14:12 | XMS_ITS | Clinical Summary ---
Author Organization [facility] Address [address] [place] [address] Care Team Providers Care Stave Mill Hand Name Role Phone Sudha Saha Unavailable [phone] Krissy De Los Santos APRN Primary Care Provider [phone] Allergies No known active allergies Medications traZODone [...] needed for muscle spasms. 50 tablet 01/07/20 25 Active Additional Information Patient not taking.Reported on [...] accident 08/10/2023 Overview (08/16/2023): - [facility] Radial head fracture 08/10/2023 Overview (08/24/2023): [...] (02/01/2022): Added automatically from request for surgery [id number] Temporal bone fracture 09/21/2020 Overview (08/15/2023): - [...] left side Dysphagia, oropharyngeal 09/14/2020 Overview (08/23/2023): EXHIBITION CARVER consulted DHT in place with TF Traumatic [...] Will continue to monitor. Feeding difficulty 08/10/2023 5 Overview (08/29/2023): Paralyzed vocal cords Ate soft foods at home DHT in place EXHIBITION CARVER consulted 08/23:MBS, continue NPO with TFs okay [...] Encounters Date Type Department Care Team Description 10/01/2025 9:00 AM EST Office Visit [facility] Audiology [address] 3rd [place] [phone] Candida Hathaway, [place] Mixed conductive and sensorineural hearing loss of right ear with restricted hearing of left ear (Primary Dx) 10/01/2025 Travel 09/29/2025 Telephone [facility] Audiology [address] [place] [phone] Rivera Blankenship 09/07/2025 11:30 AM EST Office Visit [facility] [address] [place] [address] Didier Higgins MD Other male erectile dysfunction (Primary Dx); History of traumatic brain injury 09/07/2025 Travel 09/01/2025 Telephone [facility] Audiology [address] [place] [address] Rivera Blankenship 09/01/2025 Telephone [facility] Audiology [address] [place] [address] Rviera Blankenship 08/31/2025 4:10 PM EST Office Visit [facility] Otolaryngology [address] [place] [address] Jorge Mckeon MD Profound hearing loss of right ear (Primary Dx); CVA, old, speech/language deficit; Sensorineural hearing loss, unilateral, right ear, with restricted hearing on the contralateral side; Open fracture of temporal bone with routine healing, subsequent encounter 08/31/2025 2:30 PM EST Office Visit [facility] Audiology [address] [address] Phylicia Kerr, [place] Sensorineural hearing loss (SNHL) of left ear with restricted hearing of right ear (Primary Dx); Mixed conductive and sensorineural hearing loss of right ear with restricted hearing of left ear 08/31/2025 Travel 07/21/2025 4:10 PM EDT Office Visit [facility] Otolaryngology [address] [address] Radu Wiggins MD Pharyngoesophageal dysphagia (Primary Dx); CVA, old, speech/language deficit 07/21/2025 2:29 PM EDT - 07/21/2025 11:59 PM EDT Hospital Encounter [facility] [address] [place] [address] Ashok Arce Dysphagia, oropharyngeal (Primary Dx); Pharyngoesophageal dysphagia Discharge Disposition: Home or Self Care 07/21/2025 Travel 07/08/2025 10:00 AM EDT Office Visit [facility] Otolaryngology [address] [place] [phone] Jorge Mckeon MD Profound hearing loss of right ear (Primary Dx); Sensorineural hearing loss, unilateral, right ear, with restricted hearing on the contralateral side; Open fracture of temporal bone with routine healing, subsequent encounter 07/08/2025 Travel from Last 3 Months Family History [...] answer 12/16/2024 How often do you attend [facility] or denominational services? Patient unable to answer 12/16/2024 Do you belong to any clubs o r organizations such as samaritan groups, unions, fraternal or athletic groups, or [...] Recorded Patient Health Questionnaire-2 Score 0 12/02/2024 [facility] Occupat ional Health - Occupational Stress [...] time in the past 12 m [facility], were you homeless or living in [...] drink first t karina in the morning (EYE-REMELT PAN TANK OPERATOR) to steady your nerves or to [...] Info) Description 02/08/2026 10:50 AM EDT Consult [facility] [address] [place] [address] Sheeba Barrett, NEWSPAPER INSERTER, DNP [address] [place] [address] 03/01/2026 1:30 PM EDT Office Visit [facility] [address] [place] [address] Didier Higgins MD [address] [facility] [address] [place] [phone] 03/21/2026 Hospital Encounter [facility] [address] [place] [phone] Oscar Amador, DDS [address] [place] [phone] Scheduled Procedures Name Priority Associated Diagnoses Date/Ti [...] 2021 Sigmoidoscopy 2021 [facility]-Colorectal Cancer Screening 2021 [id number] Vaccine (1 - season) 2025 [facility]-Influenza Vaccine (#1) 2025 [facility]- SDOH Screenings 06/18/2025 [facility]-Adult SDOH Screenings 06/18/2025 12/16/2024 [facility]-Depression Screening 12/02/2025 12/02/2024, 11/15 Dental Oral Exam 12/18/2025 06/19/2025, 06/2025, 06/12/2024 [facility]-Zoster Vaccines (1 of 2) 2026 Dental X-Ray: Full Mouth 06/13/2027 06/12/2024 [facility]-HIV Screening Completed 11/15/2024, , 08/23/2020, Additional history exists [facility]-Hepatitis C Screening Completed 2024, 08/09/2023, 08/26/2020, Additional history exists [facility]-Obesity Intervention Completed 025, 09/07/2025, 08/31/2025, Additional history exists HPV Vaccines (No Doses Required) Completed [facility]-HIB Vaccines Aged Out No longer e [...] Care Plan Autogenerated Problem No [employer] Implanted Type Area Coach Operator Device Identifier Shelf Expiration Date Model / Serial / Lot Screw 2.7mm Bone T10 Full Thread L22mm - [id number] Implanted:Qty: 1 on 08/22/2023 by Ezio Davey MD at [facility] [employer] ([facility])-[id number] / / Comp Plate Narr Strgt 14hl L174mm - [id number] Implanted:Qty: 1 on 08/22/2023 by Ezio Davey MD at [facility] [employer] [facility])-[id number] / / Screw 3.5mm Bone T10 Full Thread L18mm - [id number] Implanted:Qty: 3 on 08/22/2023 by Ezio Davey MD at [facility] [employer] [facility])-[id number] / / Screw 3.5mm Bone T10 Full Thread L22mm - [id number] Implanted:Qty: 1 on 08/22/2023 by Ezio Davey MD at [facility] [employer] [facility])-[id number] / / Screw 3.5mm Bone T10 Full Thread L16mm - [id number] Implanted:Qty: 3 on 08/22/2023 by Ezio Davey MD at [facility] [employer] [facility])-[id number] / / Screw 3.5mm Bone T10 Full Thread L26mm - [id number] Implanted:Qty: 1 on 08/22/2023 by Ezio Davey MD at [facility] [employer] [facility])-[id number] / / Screw 3.5mm Bone T10 Full Thread L20mm - [id number] Implanted:Qty: 1 on 08/22/2023 by Ezio Davey MD at [facility] [employer] ([facility])-[id number] / / Head Radial Align 26mm - [id number] Implanted:Qty: 1 on 08/22/2023 by Ezio Davey MD at [facility] [employer]-[id number] 10/30/2024 [id number] / / Hip Stem Radial Align 9x2mm - [id number] Implanted:Qty: 1 on 08/22/2023 by Ezio Davey MD at [facility] [employer]-[id number] 04/06/2025 [id number] / / Procedures Procedure Name Priority Date/Time Associated Diagnosis Comments FL MODIFIED BARIUM SWALLOW Routine 07/21/2025 3:17 PM EDT Pharyngoesophageal dysphagia COMPREHENSIVE ORAL EVALUATION - NEW OR ESTABLISHED PATIENT Routine 06/19/2025 1:45 PM EDT Exostosis HEPATITIS C ANTIBODY - ED W/REFLEX TO [...] penetration with cup single and consecutive sips. Reserve consistency (IDDSI 2): There is no aspiration [...] laryngealpenetration with cup single and consecutive sips. Reserve consistency (IDDSI 2): There is no aspiration [...] on 07/21/2025 4:44 PM Radu Wiggins MD IM FLUOROSCOPY PROCEDURES Final Result * ED HIV 1/2 Antibody/Antigen Screen w/Reflex to HIV 1/2 Differentiation (11/15/2024 4:02 PM EST) HIV 1 & 2 Antibody/Antigen Screen Non Reactive Non Reactive 11/15/2024 5:00 PM EST [facility] Comment:Screening for HIV 1 & 2 antibodies, and P24 antigen is NONREACTIVE. No confirmatory testing is required. Blood Venous blood specimen / Unknown Venipuncture / Unknown 11/15/2024 4:02 PM EST 11/15/2024 4:19 PM EST us Prerna Velasco MD LAB BLOOD ORDERABLES Final Re sult Performing Organization Address City/[facility]/ZIP Co de Phone Number [facility] [address] [place] [address] * Hepatitis C Antibody - ED (11/15/2024 4:02 PM EST) Hepatitis C Antibody Negative Negative 11/15/2024 5:00 PM EST [facility] Blood Venous blood specimen / Unknown Venipuncture / Unknown 11/15/2024 4:02 PM EST 11/15/2024 4:18 PM EST Prerna Velasco MD LAB BLOOD ORDERABLES Final Re sult Performing Organization Address [facility] de Phone Number [facility] [address] [place] [address] from Last 3 Months or Most Recently Relevant to Health Maintenance Additional Health Concerns Active Problems Noted Date Diagnosed Date Autogenerated Problem 07/15/2025 Infection Onset Date Last Indicated 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 Do not resolve this infection. Lillian Robb RN IPAC 08/08/2020 03/08/2021 MRSA 11/15/2024 11/15/2024 Insurance [facility] MEDICAID Advance Directives * Full Code [...] Patient has decision-making capacity? Yes Care Teams Stave Mill Hand Relationship Specialty Start Date End Date Krissy De Los Santos APRN [address] [place] [address] PCP - General 07/10/23 Sudha Saha PA [address] [facility] [address] [place] [address] Physician Hog [facility]yer Neurosurgery 11/06/22
--- OUTSIDE RECORDS SUMMARY | 2025-10-05 14:12 | XMS_ITS | Encounter Summary ---
Author Organization [facility] Address [address] [id number] Care Team Providers Care Bicycle Fitter Name Role Phone Sudha Saha PA Unavailable [phone] Krissy De Los Santos APRN Primary Care Provider [phone] Encounter Details Date Type Department Care Team [...] often do you attend chur ch or voodoo services? Patient unable to answer 12/16/2024 Do you belong to any clubs o r organizations such as moravian groups, unions, fraternal or athletic groups, or [...] 12/02/2024 [facility] Occupat ional Health - Occupational [...] place to sleep or slept in a custodial (including now)? No 08/10/2023 PHQ-9 Answer Date [...] any time in the past 12 m [facility], were you homeless or living in a custodial (including now)? Patient unable to answer 12/16/2024 [...] drink first t karina in the morning (EYE-CYBER WORKFORCE DEVELOPER AND MANAGER) to steady your nerves or to [...] Info) Description 02/08/2026 10:50 AM EDT Consult [facility] [address] [place] [phone] Sheeba Barrett, EXECUTIVE TEAM LEADER, DNP [address] [place] [phone] 03/01/2026 1:30 PM EDT Office Visit [facility] [address] [place] [phone] Didier Higgins MD [address] [facility] [address] [place] [phone] 03/21/2026 Hospital Encounter [facility] [address] [place] [address] Oscar Amador, DDS [address] [place] [phone] Scheduled Procedures Name Priority Associated Diagnoses Date/Ti [...] documented as of this encounter Care Teams Bicycle Fitter Relationship Specialty Start Date End Date Krissy De Los Santos APRN [address] [place] [address] PCP - General 07/10/23 Sudha Saha PA [address] [facility] [address] [place] [address] Physician Quantitative Consultant Neurosurgery 11/06/22 documented as of this encounter
--- OUTSIDE RECORDS SUMMARY | 2025-10-05 14:12 | XMS_ITS | Encounter Summary ---
Author Organization [facility] Address [address] [id number] Care Team Providers Care Financial Administrator Name Role Phone Sudha Saha PA Unavailable [phone] Krissy De Los Santos APRN Primary Care Provider [phone] Encounter Details Date Type Department Care Team [...] often do you attend chur ch or yarsanism services? Patient unable to answer 12/16/2024 Do you belong to any clubs o r organizations such as uatsdin groups, unions, fraternal or athletic groups, or [...] Recorded Patient Health Questionnaire-2 Score 0 12/02/2024 [facility] Occupat ional Health [...] any time in the past 12 m [facility], were you homeless or [...] drink first t karina in the morning (EYE-ASSISTANT STORE MANAGER TRAINEE) to steady your nerves or to get [...] Info) Description 02/08/2026 10:50 AM EDT Consult [facility] [address] [place] [address] Sheeba Barrett, DIRECTOR EMERGENCY DEPARTMENT, DNP [address] [place] [phone] 03/01/2026 1:30 PM EDT Office Visit [facility] [address] [place] [phone] Didier Higgins MD [address] [facility] [address] [place] [phone] 03/21/2026 Hospital Encounter [facility] RO[facility] [address] [place] [address] Oscar Amador, DDS [address] [place] [phone] Scheduled Procedures Name Priority Associated Diagnoses Date/Ti [...] documented as of this encounter Care Teams Financial Administrator Relationship Specialty Start Date End Date Krissy De Los Santos APRN [address] [place] [address] PCP - General 07/10/23 Sudha Saha PA [address] [facility] [address] [place] [address] Physician Mold Sander Neurosurgery 11/06/22 documented as of this encounter
[2025-10-05 15:02] LABS: Hematocrit 41.1 % (42.0-52.0); Hemoglobin 13.9 g/dL (14.1-18.0); Immature Granulocytes % 0.4 %; Mean Corpuscular HGB Conc 33.8 g/dL (31.8-35.4); Mean Corpuscular Hemoglobin 31.4 pg (27.0-31.2); Mean Corpuscular Volume 92.8 fl (80-94); Nucleated Red Blood Cells % 0 %; Platelet Count 314 K/mm3 (142-424); Red Blood Count 4.43 M/mm3 (4.60-6.20); Red Cell Distribution Width-SD 45.8 fL; White Blood Count 12.9 K/mm3 (4.8-10.8)
[2025-10-05 16:01] LABS: Thyroid Stimulating Hormone 1.99 uIU/mL (0.465-4.68)
[2025-10-06 11:12] LABS: PSA, Free 0.16 ng/mL; Testosterone,Total 381 ng/dL (264-916)
== END 2025-10-05 23:59 | disposition home or self-care (01) ==
LOC: LAB 13:56
PROVIDERS: PCP Nurse Practitioner Family; Visit Provider Urology
DX: N40.0 Benign prostatic hyperplasia without lower urinary tract symptoms (principal); N52.9 Male erectile dysfunction, unspecified
CPT/HCPCS: 36415; 84153; 84154; 84270; 84403; 84443; 85025